=== PATIENT | female | born 1995 | race Asian ===

== ENCOUNTER 2017-03-30 00:07 | Emergency (ER) | payer OTHER ==
[~2017-03-30] VITALS: Ht 170.2 cm; Wt 61.4 kg
[2017-03-30] MEDS ORDERED: AUGM875T28 PO (01:19)
[2017-03-30 01:29] VITALS: BP 157/74
[2017-03-30] MEDS ORDERED: IBUPROFEN 800 MG TAB PO ONE (01:30)
[2017-03-30] MEDS ORDERED: AUGMENTIN 875 MG TAB PO ONE (01:30)
== END 2017-03-30 01:48 | disposition home or self-care (01) ==
LOC: M ED 00:07
DX: S81.851A Open bite, right lower leg, initial encounter (principal); W54.0XXA Bitten by dog, initial encounter; Y92.018 Other place in single-family (private) house as the place of occurrence of the external cause; Y93.89 Activity, other specified; Y99.8 Other external cause status; L40.9 Psoriasis, unspecified

== ENCOUNTER 2019-02-19 23:16 | Emergency (ER) | payer OTHER, BC ==
[~2019-02-19] VITALS: Ht 170.2 cm; Wt 61.3 kg
[~2019-02-19 23:16] MED LIST: AUGM875T28 PO
[2019-02-19] MEDS ORDERED: ISOVUE-370 76% 100ML VIAL (Q9967) As Ordered ONE (23:52)
[2019-02-20] MEDS ORDERED: NS 500 ML IV ONE
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
--- NOTE | 2019-02-20 01:00 | REPVR ---
PROCEDURE INFORMATION: Exam: CT Chest With Contrast Exam date and time: 02/19/2019 11:49 PM Clinical history: 23 years old, female; Chest pain; Type not specified; Additional info: Tr TECHNIQUE: Imaging protocol: Computed tomography of the chest with intravenous contrast. Axial, coronal and sagittal reformatted images were created and reviewed. Radiation optimization: All CT scans at this facility use at least one of these dose optimization techniques: automated exposure control; mA and/or kV adjustment per patient size (includes targeted exams where dose is matched to clinical indication); or iterative reconstruction. Contrast material: ISO; Contrast volume: 100 ml; Contrast route: AC; COMPARISON: No relevant prior studies available. FINDINGS: Lungs: Unremarkable. No consolidation. No mass. Pleural space: Unremarkable. No pneumothorax. No pleural effusion. Heart: Unremarkable. No cardiomegaly. No pericardial effusion. Aorta: Unremarkable. No aneurysm or dissection. Lymph nodes: No pathologically enlarged lymph nodes. Bones/joints: No acute osseous abnormality. Soft tissues: Unremarkable. IMPRESSION: No CT evidence of acute intrathoracic traumatic injury. Electronically signed by: Luis Dale On 02/20/2019 01:00:38 AM
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
[2019-02-20] MEDS ORDERED: MORPHINE 2 MG/ML 1ML SYRINGE (J2270) IV ONE (01:15)
[2019-02-20 01:49] VITALS: BP 123/68
[2019-02-21] MEDS ORDERED: ONDA4TAB6 PO (15:51)
[2019-02-21] MEDS ORDERED: IBUP-1022 PO (15:51)
[2019-02-21] MEDS ORDERED: ROBA750T4 PO (15:51)
== END 2019-02-20 01:51 | disposition home or self-care (01) ==
LOC: M ED 23:16
DX: S00.83XA Contusion of other part of head, initial encounter (principal); V49.40XA Driver injured in collision with unspecified motor vehicles in traffic accident, initial encounter; Z79.2 Long term (current) use of antibiotics
CPT/HCPCS: 70450; 71260; 72125; 74177; 84702; 96361; 96374; 99284; J2270; Q9967

== ENCOUNTER 2019-02-21 15:09 | Emergency (ER) | payer OTHER, BC ==
[~2019-02-21] VITALS: Ht 170.2 cm; Wt 58.2 kg
[2019-02-21 15:09] VITALS: BP 132/81
[2019-02-21] MEDS ORDERED: ROBA750T4 PO (15:51)
[2019-02-21] MEDS ORDERED: IBUP-1022 PO (15:51)
[2019-02-21] MEDS ORDERED: ONDA4TAB6 PO (15:51)
[2019-02-21] MEDS ORDERED: ONDANSETRON 4 MG ORAL DISINTEGRATING TAB (Q0162 PER 1MG) PO ONE (16:00)
== END 2019-02-21 16:08 | disposition home or self-care (01) ==
LOC: M ED 15:09
DX: S29.012A Strain of muscle and tendon of back wall of thorax, initial encounter (principal); X58.XXXA Exposure to other specified factors, initial encounter; Y92.89 Other specified places as the place of occurrence of the external cause; F07.81 Postconcussional syndrome
CPT/HCPCS: 99283; Q0162

== ENCOUNTER 2019-03-01 12:45 | Emergency (ER) | payer OTHER, BC ==
[~2019-03-01] VITALS: Ht 170.2 cm; Wt 57.5 kg
[~2019-03-01 12:45] MED LIST changes: +IBUP-1022 PO; +ONDA4TAB6 PO; +ROBA750T4 PO
[2019-03-01] MEDS ORDERED: NS 1,000 ML IV ONE (15:15)
[2019-03-01] MEDS ORDERED: METOCLOPRAMIDE INJ 10MG/2ML VIAL (J2765) IV ONE (15:15)
[2019-03-01] MEDS ORDERED: KETOROLAC 30 MG/ML VIAL (J1885) IV ONE (16:00)
[2019-03-01] MEDS ORDERED: PROM25TA12 PO (17:24)
[2019-03-01] MEDS ORDERED: KETO10TAB PO (17:24)
[2019-03-01 17:26] VITALS: BP 108/64
== END 2019-03-01 17:32 | disposition home or self-care (01) ==
LOC: M ED 12:45
DX: F07.81 Postconcussional syndrome (principal)
CPT/HCPCS: 96361; 96374; 96375; 99284; J1885; J2765

== ENCOUNTER → 2019-04-23 | Outpatient (CLI) | payer BC ==
[~2019-04-23] MED LIST changes: +KETO10TAB PO; +PROM25TA12 PO
[2019-04-23 11:11] LABS: FREE T4 1.1 NG/DL (0.76-1.46); THYROID STIMULATING HORMONE 2.42 uIU/ML (0.358-3.740)
[2019-04-23 13:18] LABS: CORTISOL AM 16.3 UG/DL (4.3-22.4); PROLACTIN 15.5 NG/ML
== END ==
LOC: M LAB 09:28
PROVIDERS: ATTEND Internal Medicine Endocrinology, Diabetes & Metabolism
DX: D35.2 Benign neoplasm of pituitary gland (principal)

== ENCOUNTER → 2019-04-23 | Outpatient (CLI) | payer OTHER, BC ==
[2019-04-23 10:04] LABS: HEMATOCRIT 40.3 % (36.0-47.0); HEMOGLOBIN 13.5 g/dl (12.0-15.5); MEAN CORPUSCULAR HEMOGLOBIN 29.3 pg (27.0-33.0); MEAN CORPUSCULAR HGB CONC 33.5 g/dl (32.0-36.5); MEAN CORPUSCULAR VOLUME 87.6 fl (80.0-96.0); PLATELET COUNT, AUTOMATED 311 10^3/uL (150-450); WHITE BLOOD COUNT 8.4 10^3/uL (4.0-10.0)
[2019-04-23 11:09] LABS: ALBUMIN 4.1 GM/DL (3.2-5.2); ALT/SGPT 31 U/L (12-78); BILIRUBIN,TOTAL 0.4 MG/DL (0.2-1.0); BLOOD UREA NITROGEN 17 MG/DL (7-18); CALCIUM LEVEL 9.2 MG/DL (8.5-10.1); CARBON DIOXIDE LEVEL 25 MEQ/L (21-32); CHLORIDE LEVEL 105 MEQ/L (98-107); GLOMERULAR FILTRATION RATE > 60.0 (>60); GLUCOSE, FASTING 91 MG/DL (70-100); POTASSIUM SERUM 4.1 MEQ/L (3.5-5.1); SODIUM LEVEL 138 MEQ/L (136-145); TOTAL PROTEIN 7.2 GM/DL (6.4-8.2)
== END ==
LOC: M LAB 09:24
PROVIDERS: ATTEND Family Medicine
DX: R51 Headache (principal)

== ENCOUNTER → 2020-01-26 | Outpatient (CLI) | payer BC ==
[~2020-01-26] MED LIST changes: +PROHANCE 279.3MG/ML 5ML VIAL As Ordered ONE
--- NOTE | 2020-01-26 17:31 | REPVR ---
PROCEDURE INFORMATION: Exam: MR Head Without and With Contrast, Sella Exam date and time: 01/26/2020 4:56 PM Age: 24 years old Clinical indication: Abnormal findings; Abnormal lab test; Prolactin labwork; Patient HX: Increased prolactin; Additional info: Benign neoplasm of pituitary gland TECHNIQUE: Imaging protocol: MR of the head without and with intravenous contrast. Exam focused on the sella. Contrast material: PROHANCE; Contrast volume: 5 ml; Contrast route: INTRAVENOUS (IV); COMPARISON: MRI-Brain without Contrast 02/11/2015 1:39 PM FINDINGS: Brain: No acute infarct identified on the diffusion-weighted imaging. No evidence of brain parenchymal edema or intracranial mass effect. No significant white matter disease. No pathologic brain parenchymal enhancement. Ventricles: Stable. No ventriculomegaly. Size asymmetry of the lateral ventricles is probably physiologic. Sella: The pituitary gland is enlarged demonstrating a convex superior contour. There is an area of relative hypoenhancement in the anterior aspect of the gland measuring 6 x 4 x 5 mm, image 7 series 801, image 7 series 901. This does appear T2 hyperintense, T1 hypointense on the precontrast sequences. The pituitary stalk is slightly deviated to the left. No parasellar masses. The superior aspect of the pituitary gland demonstrates mild mass effect upon the optic chiasm. Bones/joints: Unremarkable. 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 Electronically signed by: Landy Keyes On 01/26/2020 17:31:48 PM
== END ==
LOC: M RAD 15:15
PROVIDERS: ATTEND Internal Medicine Endocrinology, Diabetes & Metabolism
DX: D35.2 Benign neoplasm of pituitary gland (principal)

== ENCOUNTER → 2020-03-29 | Outpatient (CLI) | payer BC ==
[~2020-03-29] MED LIST changes: -PROHANCE 279.3MG/ML 5ML VIAL As Ordered ONE
[2020-03-29 10:19] LABS: FOLATE 9.4 NG/ML
== END ==
LOC: M LAB 09:06
PROVIDERS: ATTEND Registered Nurse
DX: F07.81 Postconcussional syndrome (principal)

== ENCOUNTER → 2020-04-15 | Outpatient (CLI) | payer BC ==
--- NOTE | 2020-04-19 14:30 | SLEEPHOME ---
DATE: 04/15/2020 ORDERED BY: RUSTY Marrero Nocturnal polysomnography was performed for evaluation of sleep physiology in this patient with complaints of excessive somnolence and insomnia, snoring and nonrestorative sleep. Seven hours and 42 minutes of data were reviewed. There were 247.5 minutes of sleep identified. Sleep latency was very prolonged at 179.5 minutes. REM sleep was not achieved. Sleep architecture showed poor progression. Some fragmentation from spontaneous arousals was noted. Overall sleep efficiency was 54.1%. The electrocardiogram showed a sinus rhythm with an average heart rate of 52 beats per minute. Rate range 48-90. EEG showed fairly normal waveforms for wake and sleep stages. There was only one obstructive respiratory event identified of 10 seconds in duration or greater. Minimal snoring was appreciated. Arousals from respiratory events occurred 0.5 times per hour with occasional movement in the limb EMG. Limb movement arousal index was 0.7. Spontaneous arousals were seen 15 times per hour. IMPRESSION: Abnormal nocturnal polysomnography with frequent spontaneous arousals of unclear etiology. RECOMMENDATION: Possible considerations for the cause of the patients sleep disruption would be physical discomfort or medication effects. MTDD
== END ==
LOC: M SLEEP 20:00
PROVIDERS: ATTEND Physician Assistant
DX: R40.0 Somnolence (principal); R06.83 Snoring

== ENCOUNTER → 2020-05-09 | Outpatient (CLI) | payer BC ==
--- NOTE | 2020-05-10 15:25 | SLEEPHOME ---
NOCTURNAL POLYSOMNOGRAPHY HOME DATE: 05/09/2020 ORDERED BY: RUSTY Venegas Diagnostic home sleep testing was performed due to concern for the obstructive sleep apnea syndrome in this patient with persistent excessive somnolence and nonrestorative sleep and a history of snoring. For testing, a nocturnal T3 respiratory monitoring device was used. Continuous record was made of pulse, oxygen saturation, air flow, chest and abdominal strain, and body position. Nine hours and 59 minutes of data were reviewed. There were 4 hours and 46 minutes marked as time in bed. During the interval marked time in bed, there was significant paradoxical breathing identified in the strain channels. Unfortunately the patient failed to wear the flow sensor correctly. All told there were 51 events of paradoxical breathing. The patient's baseline pulse rate was 77. Pulse rate ranged 55 to 108. Baseline saturation was 95%. Saturations fell only to 91%. Testing was performed in both the supine and nonsupine positions. IMPRESSIONS: Equivocal diagnostic home sleep test with evidence of paradoxic breathing. A respiratory event index of 10.7 was recorded. However, as the patient failed to apply the flow sensor properly, I am unable to determine the character of these events. RECOMMENDATION: Further sleep evaluation will likely be necessary as these results are equivocal. Dr. Pitts
== END ==
LOC: M SLEEP HO 11:38
PROVIDERS: ATTEND Physician Assistant
DX: R40.0 Somnolence (principal)

== ENCOUNTER → 2020-06-10 | Outpatient (CLI) | payer BC ==
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
== END ==
LOC: M SLEEP 20:00
PROVIDERS: ATTEND Physician Assistant
DX: R40.0 Somnolence (principal); R06.83 Snoring; G47.21 Circadian rhythm sleep disorder, delayed sleep phase type

== ENCOUNTER → 2020-09-20 | Outpatient (CLI) | payer BC ==
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
== END ==
LOC: M RAD 12:02
PROVIDERS: ATTEND Registered Nurse
DX: M25.511 Pain in right shoulder (principal)

== ENCOUNTER → 2020-11-05 | Outpatient (CLI) | payer BC ==
--- NOTE | 2020-11-07 09:44 | REP ---
INDICATION: IMPINGEMENT SYNDROME OF RIGHT SHOULDER. COMPARISON: Radiographs 09/20/2020. TECHNIQUE: Coronal oblique T1, T2 fat sat, sagittal oblique T2 fat sat, axial T2 fat sat, gradient echo. FINDINGS: Rotator cuff: There is mild supraspinatus and infraspinatus tendinopathy/tendinitis. There is no rotator cuff tendon tear. Acromioclavicular joint: Unremarkable. Acromion: Type 1 Biceps Tendon: In bicipital groove, no tenosynovitis. Hill Sach's deformity: None. Deltoid muscle: No abnormal signal. Biceps labral complex: Intact. Labrum: No tear. Cartilage: No defects. Bone marrow: No abnormal signal. Joint fluid: No effusion. IMPRESSION: Mild supraspinatus and infraspinatus tendinopathy/tendinitis. No evidence of rotator cuff tear or labral tear. <Electronically signed by Rusty Holland > 11/07/20 [id number]
== END ==
LOC: M RAD 09:43
PROVIDERS: ATTEND Orthopaedic Surgery Sports Medicine
DX: M75.41 Impingement syndrome of right shoulder (principal)

== ENCOUNTER → 2021-01-02 | Outpatient (CLI) | payer OTHER, BC ==
[~2021-01-02] MED LIST changes: +CITA10TA7 PO; +FREM225A SQ; +GABA-1171 PO; +HYDR-3363 PO; +NOXI1TAB PO; +PRAZ1CAP PO
== END ==
LOC: M SOG 11:03
PROVIDERS: ATTEND Orthopaedic Surgery Sports Medicine
DX: M54.12 Radiculopathy, cervical region (principal); G56.21 Lesion of ulnar nerve, right upper limb

== ENCOUNTER → 2021-02-19 | Outpatient (CLI) | payer OTHER, BC | LOC: M RAD 10:36 | PROVIDERS: ATTEND Orthopaedic Surgery Sports Medicine | DX: G56.21 Lesion of ulnar nerve, right upper limb (principal) ==

== ENCOUNTER → 2021-03-17 | Outpatient (CLI) | payer OTHER, BC ==
[~2021-03-17] MED LIST changes: +CITA10TA5 PO; -CITA10TA7 PO
== END ==
LOC: M LABSMTC 09:11
PROVIDERS: ATTEND Anesthesiology
DX: Z01.812 Encounter for preprocedural laboratory examination (principal); Z20.822 Contact with and (suspected) exposure to COVID-19

== ENCOUNTER 2021-03-22 08:54 | Day surgery (SDC) | payer OTHER, BC ==
[~2021-03-22] VITALS: Ht 170.2 cm; Wt 63.0 kg
[~2021-03-22 08:54] MED LIST changes: +LR 1,000 ML IV ONE; +MIDAZOLAM INJ 2MG/2ML VIAL (J2250 PER 1MG) IV PRN; +ceFAZolin SOD 2 GM in IV 1 EA IV ONE; +fentaNYL 100 MCG/2 ML INJECTION (J3010) IV PRN
--- OUTSIDE RECORDS SUMMARY | 2021-03-22 08:58 | CCD ---
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 Pitts MD on 05/16/[address] [place] [address], [address] Collected: 05/16/2020 Reported: 06/08/2020 11:03 tel :[phone] ANTI-CHROMATIN ANTIBODIES <0.2 AI (0.0-0.9) N (Normal) Reviewed by Catherine Pitts MD on 2020; All test results are final unless otherwise noted. Reported Physicians [facility] Ordered by Catherine Pitts MD on 05/16/[address] [place] [address], [address] Collected: 05/16/2020 Reported: 06/08/2020 11:03 tel :[phone] Reported Physicians See Note None Note: Reported Physicians:Ordering: Catherine Lopez AAttending: Catherine PittsCopngoc To: Catherine Pitts Reviewed by Catherine Pitts MD on 2020; All test results are final unless otherwise noted. ANTI DS-DNA AB BY [facility] Ordered by Catherine Pitts MD on 05/16/[address] [place] [address], [address]39[address] Collected: 05/16/2020 Reported: 06/08/2020 11:03 tel :[phone] ANTI DS-DNA AB Negative (Negative) N (Normal) Note: Performed at: - [facility] [address], [place] [id number] Electric Melt Operator: Gabbi Valadez MD, Phone: [phone] Performed at: - [facility] [address] [id number] Electric Melt Operator: Asim Bravo MD, Phone: [phone] Reviewed by Catherine Pitts MD on 2020; All test results are final unless otherwise noted. Reported Physicians [facility] Ordered by Catherine Pitts MD on 05/16/[address] [place] [address], 97[address] Collected: 05/16/2020 Reported: 06/08/2020 11:03 tel :[phone] Reported Physicians See Note None Note: Reported Physicians:Ordering: Catherine Lopez AAttending: Catherine PittsCopngoc To: Catherine Pitts Reviewed by Catherine Pitts MD on 2020; All test results are final unless otherwise noted. LYME DISEASE SCRN WITH CONFIRM [facility] Ordered by Catherine Pitts MD on 05/16/[address] [place] [address], [address] Collected: 05/16/2020 Reported: 06/08/2020 11:03 tel :[phone] Lyme Disease IgG/IgM Antibodie <0.91 ISR (0.00-0.90) N (Normal) Note: Ne gative <0.91 Equivocal 0.91 - 1.09 Positive >1.09 Lyme Disease IgM Ab Quantitati <0.80 index (0.00-0.79) N (Normal) Note: Ne gative <0.80 Equivocal 0.80 - 1.19 Positive >1.19 . IgM levels may peak at 3-6 weeks post infection, then gradually decline. Reviewed by Catherine Pitts MD on 2020; All test results are final unless otherwise noted. Reported Physicians [facility] Ordered by Catherine Pitts MD on 05/16/[address] [place] [address], [address] Collected: 05/16/2020 Reported: 06/08/2020 11:03 tel :[phone] Reported Physicians See Note None Note: Reported Physicians:Ordering: Catherine Lopezding: Louis Pitts To: Catherine Pitts Reviewed by Catherine Pitts MD on 2020; All test results are final unless otherwise noted. ANTINUCLEAR ANTIBODIES [facility] Ordered by Catherine Pitts MD on 05/16/[address] [place] [address], [address] Collected: 05/16/2020 Reported: 06/08/2020 11:03 tel :[phone] ANTINUCLEAR ANTIBODIES DIRECT Negative (Negative) N (Normal) OIL WELL LOGGING ENGINEER ANTIBODIES 0.2 AI (0.0-0.9) N (Normal) AMARO ANTIBODIES <0.2 AI (0.0-0.9) N (Normal) SJOGREN'S ANTI SS-A <0.2 AI (0.0-0.9) N (Normal) SJOGREN'S ANTI SS-B <0.2 AI (0.0-0.9) N (Normal) Reviewed by Catherine Pitts MD on 2020; All test results are final unless otherwise noted. Reported Physicians [facility] Ordered by Catherine Pitts MD on 05/16/[address] [place] [address], 20153 Collected: 05/16/2020 Reported: 06/08/2020 11:03 tel :[phone] Reported Physicians See Note None Note: Reported Physicians:Ordering: Catherine Lopez AAtpatriciading: Louis Pitts To: Catherine Pitts Reviewed by Catherine Pitts MD on 2020; All test results are final unless otherwise noted. LUPUS TYPE ANTICOAGULANT [facility] Ordered by Catherine Pitts MD on 05/16/[address] [place] [address], 01782 Collected: 05/16/2020 Reported: 05/18/2020 11:04 tel :[phone] PTT LUPUS TYPE ANTICOAG SCREEN 0.9 (0-1.2) N (Normal) Note: RESULT IS LESS THAN 1.2, NO FURTHE R TESTING INDICATED. INTERPRETATION This test is to screen those individuals that may have a circulating lupus anticoagulant. If the LA Screen test is normal, and/or the LA Confirm test is normal, the presence of a Lupus Anticoagulant (LA) is unlikely, but does not completely exclude LA-like activity. If both tests or the LA Confirm test are elevated, the specimen will be reflexed to a hexagonal phase phospholipid test through our reference laboratory for confirmation. A positive hexagonal phase phospholipid is indicative of LA. A negative hexagonal phase phospholipid test may indicate a coagulation factor deficiency or a specific inhibitor. Reviewed by Catherine Pitts MD on 2019; All test results are final unless otherwise noted. Reported Physicians [facility] Ordered by Catherine Pitts MD on 05/16/[address] [place] [address], 877[address] Collected: 05/16/2020 Reported: 05/18/2020 11:04 tel :[phone] Reported Physicians See Note None Note: Reported Physicians:Ordering: Catherine Lopze AAttending: Louis Pitts To: Catherine Pitts Reviewed by Catherine Pitts MD on 2019; All test results are final unless otherwise noted. RHEUMATOID FACTOR QUANT [facility] Ordered by Catherine Pitts MD on 05/16/[address] [place] [address], 20263 Collected: 05/16/2020 Reported: 05/16/2020 12:13 tel :[phone] RHEUMATOID FACTOR QUANT < 10.0 IU/ML (<15.0) N (Normal) Reviewed by Catherine Pitts MD on 2019; All test results are final unless otherwise noted. Reported Physicians [facility] Ordered by Catherine Pitts MD on 05/16/[address] [place] [address], 99717 Collected: 05/16/2020 Reported: 05/16/2020 12:13 tel :[phone] Reported Physicians See Note None Note: Reported Physicians:Ordering: Catherine Lopez AAttending: Louis Pitts To: Catherine Pitts Reviewed by Catherine Pitts MD on 2019; All test results are final unless otherwise noted. FT4&TSH PANEL [facility] Ordered by Catherine Pitts MD on 05/16/[address] [place] [address], 06310 Collected: 05/16/2020 Reported: 05/16/2020 12:13 tel :[phone] THYROID STIMULATING HORMONE 1.970 uIU/ML (0.358-3.740) N (Normal) FREE T4 1.12 NG/DL (0.76-1.46) N (Normal) Reviewed by Catherine Pitts MD on 2019; All test results are final unless otherwise noted. Reported Physicians [facility] Ordered by Catherine Pitts MD on 05/16/[address] [place] [address], 35532 Collected: 05/16/2020 Reported: 05/16/2020 12:13 tel :[phone] Reported Physicians See Note None Note: Reported Physicians:Ordering: Catherine Lopez AAttending: Catherine PittsCopngoc To: Catherine Pitts Reviewed by Catherine Pitts MD on 2019; All test results are final unless otherwise noted. COMPLETE BLOOD COUNT [facility] Ordered by Catherine Pitts MD on 05/16/[address] [place] [address], 698[address] Collected: 05/16/2020 Reported: 05/16/2020 11:08 tel :[phone] WHITE BLOOD COUNT 9.0 3/uL (4.0-10.0) N (Normal) RED BLOOD COUNT 4.71 6/uL (4.00-5.40) N (Normal) HEMOGLOBIN 13.5 g/dl (12.0-15.5) N (Normal) HEMATOCRIT 41.7 % (36.0-47.0) N (Normal) MEAN CORPUSCULAR VOLUME 88.5 fl (80.0-96.0) N (Normal) MEAN CORPUSCULAR HEMOGLOBIN 28.7 pg (27.0-33.0) N (Normal) MEAN CORPUSCULAR HGB CONC 32.4 g/dl (32.0-36.5) N (Normal) RED CELL DISTRIBUTION WIDTH 12.5 % (11.5-14.5) N (Normal) PLATELET COUNT, AUTOMATED 278 3/uL (150-450) N (Normal) NUCLEATED RED BLOOD CELL % 0.0 % (0-0) N (Normal) Reviewed by Catherine Pitts MD on 2019; All test results are final unless otherwise noted. Reported Physicians [facility] Ordered by Catherine Pitts MD on 05/16/[address] [place] [address], 49953 Collected: 05/16/2020 Reported: 05/16/2020 11:08 tel :[phone] Reported Physicians See Note None Note: Reported Physicians:Ordering: Catherine Lopez AAttending: Louis Pitts To: Catherine Pitts Reviewed by Catherine Pitts MD on 2019; All test results are final unless otherwise noted. URIC ACID [facility] Ordered by Catherine Pitts MD on 05/16/[address] [place] [address], 58471 Collected: 05/16/2020 Reported: 05/16/2020 12:13 tel :[phone] URIC ACID 2.5 MG/DL (2.6-6.0) L (Low) Reviewed by Catherine Pitts MD on 2019; All test results are final unless otherwise noted. Reported Physicians [facility] Ordered by Catherine Pitts MD on 05/16/[address] [place] [address], 15754 Collected: 05/16/2020 Reported: 05/16/2020 12:13 tel :[phone] Reported Physicians See Note None Note: Reported Physicians:Ordering: Catherine Lopez AAttending: Louis Pitts To: Catherine Pitts Reviewed by Catherine Pitts MD on 2019; All test results are final unless otherwise noted. COMPREHENSIVE [facility]AB[facility]IL [facility] Ordered by Catherine Pitts MD on 05/16/[address] [place] [address], 54079 Collected: 05/16/2020 Reported: 05/16/2020 12:13 tel :[phone] GLUCOSE, FASTING 91 MG/DL (70-100) N (Normal) BLOOD UREA NITROGEN 13 MG/DL (7-18) N (Normal) CREATININE FOR GFR 0.74 MG/DL (0.55-1.30) N (Normal) GLOMERULAR FILTRATION RATE > 60.0 (>60) N (Normal) Note: Units are mL/min/1.73 m2 Chroni c Kidney Disease Staging per NKF: Stage I & II GFR >=60 Normal to Mildly Decreased Stage III GFR 30- 59 Moderately Decreased Stage IV GFR 15-29 Severely Decreased Stage V GFR <15 Very Little GFR Left ESRD GFR <15 on FUNERAL LIMOUSINE DRIVER SODIUM LEVEL 141 MEQ/L (136-145) N (Normal) POTASSIUM SERUM 4.2 MEQ/L (3.5-5.1) N (Normal) CHLORIDE LEVEL 108 MEQ/L (98-107) H (High) CARBON DIOXIDE LEVEL 29 MEQ/L (21-32) N (Normal) ANION GAP 4 MEQ/L (8-16) L (Low) CALCIUM LEVEL 8.7 MG/DL (8.5-10.1) N (Normal) AST/SGOT 11 U/L (7-37) N (Normal) ALT/SGPT 20 U/L (12-78) N (Normal) ALKALINE PHOSPHATASE 45 U/L (45-117) N (Normal) BILIRUBIN,TOTAL 0.3 MG/DL (0.2-1.0) N (Normal) TOTAL PROTEIN 6.5 GM/DL (6.4-8.2) N (Normal) ALBUMIN 3.9 GM/DL (3.2-5.2) N (Normal) ALBUMIN/GLOBULIN RATIO 1.5 (1.2-2.2) N (Normal) Reviewed by Catherine Pitts MD on 2019; All test results are final unless otherwise noted. Reported Physicians [facility] Ordered by Catherine Pitts MD on 05/16/2020 [address] [place], [address] Collected: 05/16/2020 Reported: 05/16/2020 12:13 tel :[phone] Reported Physicians See Note None Note: Reported Physicians:Ordering: Catherine Lopez AAttending: Louis Pitts To: Catherine Pitts Reviewed by Catherine Pitts MD on 2019; All test results are final unless otherwise noted. FREE T3 [facility] Ordered by Catherine Pitts MD on 05/16/[address] [place] [address], 15473 Collected: 05/16/2020 Reported: 05/16/2020 12:13 tel :[phone] FREE T3 3.1 PG/ML (2.2-4.0) N (Normal) Reviewed by Catherine Pitts MD on 2019; All test results are final unless otherwise noted. Reported Physicians [facility] Ordered by Catherine Pitts MD on 05/16/[address] [place] [address], 99991 Collected: 05/16/2020 Reported: 05/16/2020 12:13 tel :[phone] Reported Physicians See Note None Note: Reported Physicians:Ordering: Catherine Lopez AAttending: Louis Pitts To: Catherine Pitts Reviewed by Catherine Pitts MD on 2019; All test results are final unless otherwise noted. TOTAL 25(OH) VITAMIN D [facility] Ordered by Catherine Pitts MD on 05/16/[address] [place] [address], 27595 Collected: 05/16/2020 Reported: 05/16/2020 12:13 tel :[phone] TOTAL 25(OH) VITAMIN D 16.1 NG/ML (30.0-100.0) L (Low) Reviewed on 05/25/2020; All test result s are final unless otherwise noted. Reported Physicians [facility] Ordered by Catherine Pitts MD on 05/16/[address] [place] [address], 75329 Collected: 05/16/2020 Reported: 05/16/2020 12:13 tel :[phone] Reported Physicians See Note None Note: Reported Physicians:Ordering: Catherine Lopez AAttending: Louis Pitts To: Catherine Pitts Reviewed on 05/25/2020; All test result s are final unless otherwise noted. IGP,Aptima HPV,CtNg Age Gdln [facility] Ordered by Catherine Pitts MD on 05/02/2020 Collected: 05/02/2020 Reported: 05/05/2020 12:06 tel :[phone] Age Gdln ACOG Testing 21-24 None Reviewed by Catherine Pitts MD on 2019; All test results are final unless otherwise noted. IGP, CtNg, rfx Aptima HPV ASCU [facility] Ordered by Catherine Pitts MD on 05/02/2020 Collected: 05/02/2020 Reported: 05/05/2020 12:06 tel :[phone] . . None Chlamydia, Nuc. Acid Amp Negative (Negative) None Gonococcus, Nuc. Acid Amp Negative (Negative) None Note: PAPSMR None Note: The Pap smear is a screening test designed to aid in the detection ofpremalignant and malignant conditions of the uterine cervix. It is not adiagnostic procedure and should not be used as the sole means of detectingcervical cancer. Both false-positive and false-negative reports do occur. . NEGHPV None Note: The HPV DNA reflex criteria were n ot met with this specimen resulttherefore, no HPV testing was performed. DIAGNOSIS: See Note None Note: NEGATIVE FOR INTRAEPITHELIAL LESIO N OR MALIGNANCY. Specimen adequacy: See Note None Note: Satisfactory for evaluation. Endo cervical and/or squamous metaplasticcells (endocervical component) are present. Performed by: See Note None Note: Fadia Easley Hydraulic Governor Assembler ([facility]) Clinician provided ICD10: See Note None Note: Z12.4 Test Methodology: IGLPAP None Note: This liquid based ThinPrep(R) pap test was screened with theuse of an image guided system. Reviewed by Catherine Pitts MD on 2019; All test results are final unless otherwise noted. VITAMIN B6,PYRIDOXAL PHOSPHATE [facility] Ordered by Krystal Salazar NP on 03/29/2020 [address] [place], [address] Collected: 03/29/2020 Reported: 04/01/2020 17:15 tel :[phone] VITAMIN B6,PYRIDOXAL PHOSPHATE 17.5 ug/L (2.0-32.8) N (Normal) Note: Performed at: - [facility] [address] [place], [place] [id number] Electric Melt Operator: Asim Bravo MD, Phone: [phone] NOTES See Note None Note: Specimen Comment: Test(s) 340182-F itamin B6 Specimen Comment: was developed and its performance characteristics Specimen Comment: determined by [facility]. It has not been cleared or approved Specimen Comment: by the Food and Drug Administration. Reviewed by Krystal Salazar NP on 04/09/2020; All test results are final unless otherwise noted. Reported [facility] Ordered by Krystal Salazar NP on 03/29/[address] [place] [address], [facility] Collected: 03/29/2020 Reported: 04/01/2020 17:15 tel :[phone] Reported Physicians See Note None Note: Reported Physicians:Ordering: Jayy lam [id number], Krystal MAttending: Krystal SalazarCopngoc To: Krystal SalazarCopy To: Catherine Pitts Reviewed by Krystal Salazar NP on 04/09/2020; All test results are final unless otherwise noted. VITB12 & [facility] Ordered by Krystal Salazar NP on 03/29/[address] [place] [address], [address] Collected: 03/29/2020 Reported: 03/29/2020 10:19 tel :[phone] VITAMIN B12 LEVEL 808 PG/ML N (Normal) Note: VITAMIN B12 NORMAL RANGE NORMAL 247 - 911 PG/ML INDETERMINATE 211 - 246 PG/ML DEFICIENT LESS THAN 211 PG/ML FOLATE 9.4 NG/ML N (Normal) Note: FOLATE NORMAL RANGE NORMAL GREATER THAN 5.4 NG/ML INDETERMINATE 3.4-5.4 NG/ML DEFICIENT LESS THAN 3.4 NG/ML Reviewed by Krystal Salazar NP on 04/01/2020; All test results are final unless otherwise noted. Reported Physicians [facility] Ordered by Krystal Salazar NP on 03/29/[address] [place] [address], [address] Collected: 03/29/2020 Reported: 03/29/2020 10:19 tel : Reported Physicians See Note None Note: Reported Physicians:Ordering: Jayy lam [id number], Krystal Farooqding: Alfredo Salazar To: Alfredo Salazar To: Catherine Pitts Reviewed by Krystal Salazar PATIENT RELATIONS DIRECTOR on 04/01/2020; All test results are final unless otherwise noted. History of Present Illness History of Present Illness not supported for this document typeNo History of Present Illness Recorded Social History Description Last Updated Social history unchanged 03/02/2021 No caffeine use 05/20/2020 Not a current smoker 05/20/2020 Not using alcohol 05/20/2020 Not using drugs 05/20/2020 Poor exercise habits 05/20/2020 LIVES W/ PARENTS, SINGLE ~WORKS AT [employer] 40 HRS/WEEK. WORKED THERE SINCE MAR 2018 ~2-3 SEMESTERS AT [email or web address] 05/02/2020 No chocolate consumption 05/02/2020 No coffee consumption 05/02/2020 No tea consumption 05/02/2020 Activities of daily living 02/01/2020 Current every day smoker was five USED TO SMOKE CLOSE TO A PPD, NOW DOWN TO 5CPD 02/01/2020 No physical disability 02/01/2020 Self-reliant in usual daily activities 02/01/2020 Smoking Status Unknown Procedures and Surgical History Includes: Procedures from 03/02/2020 through 03/02/2021 Procedures Code Diagnosis Performing Provider Service Location Service Date MEDICAL RECORDS PREPARATION ($0.75 / PAGE+ postage) RECOR MEDICAL RECORD FEE Catherine Pitts MD Family Medicine [facility] 12/06/2020 Medical History Includes: Medical History in patient's chart Description Last Updated WISDOM TEETH EXTRACTED 05/02/2020 Assessment of trauma to the neck on both sides 2018 0607/02/2019 Family History Includes: Family History in patient's chart Description Last Updated FA 50 YO (A) LIPID ABN,PTSD, ON ZOLOFT ~MA 52 YO (A) ON VITAMINS ~2 SISTERS 26YO WELL 22 YO WELL 05/02/2020 Family history unchanged 02/02/2020 Review of Systems Review of Systems not supported for this document typeNo Review of Systems Recorded Mental Status Mental Status not supported for this document typeNo Mental Status Recorded Functional Status Functional Status not supported for this document typeNo Functional Status Recorded Physical Exam Physical Exam not supported for this document typeNo Physical Exam Recorded Immunizations Includes: Immunizations in patient's chart Vaccine Dose # Date Site Reaction(s) Status Source Influenza,NOS 1 05/05/2019 Complete (Reported) Pat ient Td 1 04/27/2019 Complete (Refused - Patient objection) [facility] Allergies Includes: Active, inactive, and resolved AllergiesNo Known Allergies Encounters Includes: Encounters from 03/02/2020 through 03/02/2021 Encounter Provider Location Date Check-In Time Check-Out Time D iagnosis STANDARD OV Krystal Salazar [facility], [facility] 03/02/2021 11:28AM 11:47AM Muscle Spasm of Back NO FAULT Krystal Salazar [facility], [facility] 02/22/2021 10:46AM 11:19AM Muscle Spasm of Back, Common Migraine W/o Aura W/o Intractable Migraine W/o Status Migrainosus, Postconcussion Syndrome NO FAULT Krystal Salazar [facility] 01/24/2021 11:00AM 11:27AM Postconcussion Syndrome NO FAULT Krystal Salazar [facility] 12/28/2020 10:52AM 11:31AM Generalized Anxiety Disorder , Postconcussion Syndrome NO FAULT Krystal Salazar [facility] 11/29/2020 11:12AM 11:47AM Postconcussion Syndrome, Alexsander aracelis Headache NO FAULT Krystal Salazar [facility], [facility] 11/02/2020 10:57AM 11:19AM Postconcussion Syndrome NO FAULT Krystal Salazar [facility], [facility] 10/04/2020 1:00PM 1:44PM Arthralgia - Shoulder Region Right, Postconcussion Syndrome, Generalized Anxiety Disorder NO FAULT Krystal Salazar [facility] 09/05/2020 10:58AM 11:48AM Postconcussion Syndrome, Wayne tigo, Arthralgia - Shoulder Region Right, Muscle Spasm of Back, Bursitis Right Shoulder NO FAULT [facility] 08/12/2020 9:59AM 11:10AM Postconcussion Syndrome NO FAULT Krystal Salazar PATIENT RELATIONS DIRECTOR [facility] 07/15/2020 10:02AM 10:23AM Postconcussion Syndrome NO FAULT Krystal Salazar PATIENT RELATIONS DIRECTOR [facility] 06/14/2020 11:03AM 11:43AM Postconcussion Syndrome CLINICAL USE ONLY Catherine Pitts MD Family Medicine [facility], 05/25/2020 05/20/2020 11:53AM 05/20/2020 11:59PM NO FAULT Krystal Salazar PATIENT RELATIONS DIRECTOR [facility] 05/20/2020 9:50AM 10:20AM Postconcussion Syndrome ANNUAL PHYSICAL EXAM Catherine Pitts MD Family Medicine [facility], 05/02/2020 10:16AM 11:09AM Arthralgia, Depressi on with Anxiety, Routine History & Physical Adult with Abnormal Findings, Tremor, Psoriasis NO FAULT Krystal Salazar PATIENT RELATIONS DIRECTOR [facility] 04/20/2020 10:07AM 10:48AM Postconcussion Syndrome NO FAULT Krystal Salazar PATIENT RELATIONS DIRECTOR [facility] 03/30/2020 8:01AM 8:27AM Postconcussion Syndrome NO FAULT Krystal Salazar PATIENT RELATIONS DIRECTOR [facility] 03/02/2020 9:01AM 9:54AM Postconcussion Syndrome Insurance Includes: Active Insurance Policies Plan Name Member ID Group # Subscriber Relationship Effective Da jim - [facility] [id number] Natasha last Advance Directives Includes: Current Advance DirectivesNo Advance Directives Recorded Health Concerns Includes: Active Health ConcernsNo Active Health Concerns Recorded Goals Includes: Active GoalsNo Active Goals Recorded Interventions Includes: Interventions for active GoalsNo Interventions Recorded Evaluations & Outcomes Includes: Evaluations & Outcomes for active GoalsNo Outcomes Recorded
--- OUTSIDE RECORDS SUMMARY | 2021-03-22 08:58 | CCD | Continuity of Care Document ---
Author Author Natasha FLORES MD Organization Unknown Address [id number] [place] [address] , [address] [address] Phone [phone] Care Team Providers Care Informatica Name Role Phone Catherine Pitts M.D. AUTM [phone] AUTM Unavailable AUTM Unavailable Problems Active Problems Provider Date Transient insomnia [employer] Brambila D.O. Onset: 07/27/2020 Social History Type Date Description Comments Sex Unknown ETOH Use Denies alcohol use Tobacco Use Start: Unknown End: Unknown Patient is a former smoker Recreational Drug Use Denies Drug Use Smoking Status Reviewed: 02/13/21 Patient is a former smoker Allergies, Adverse Reactions, Alerts Description No Known Drug Allergies Medications Active Medications SIG Qnty Indications Ordering Provide r Date Gabapentin 100mg Capsules 2 caps by mouth every day 90caps Unknown Hydroxyzine HCL 25mg Tablets 1 tab three times a day as needed Unknown Prazosin HCL 1mg Capsules 1 cap at bedtime Unknown Immunizations CPT Code Status Date Vaccine Lot # [id number] Given 03/11/2020 Flublock, Quadrivalent Vital Signs Date Vital Result Comment 02/13/2021 10:54am Body Temperature 97.9 F 01/02/2021 10:16am Body Temperature 97.0 F Results Test Acquired Date Facility Test Result H/L Range Note Order 01/02/2021 [facility] [address] [place] [address] [phone] Elbow extension night time splint <pending> Procedures Date Code Description Status 02/24/2021 77049 Office/Outpatient Established Mo d MDM 30-39 Min Completed 02/13/2021 27942 Office/Outpatient Established Mo d MDM 30-39 Min Completed 01/02/2021 74650 Office/Outpatient Established Mo d MDM 30-39 Min Completed 01/02/202125979 Inject/Drain Arthrocentesis Veronika r Joint/Bursa/Ganglion Cyst Completed 11/21/2020 05454 Office/Outpatient Established Lo w MDM 20-29 Min Completed 10/10/2020 25752 Office/Outpatient New Moderate M DM 45-59 Minutes Completed Medical Devices Description No Information Available Encounters Type Date Location Provider Dx Diagnosis Office Visit 02/24/2021 2:30p [facility] Hesham Flores MD M75.41 Impingement syndrome of right shoulder G56.21 Lesion of ulnar nerve, right upper limb Office Visit 02/13/2021 10:45a [facility] Hesham Flores MD M75.41 Impingement syndrome of right shoulder G56.21 Lesion of ulnar nerve, right upper limb Office Visit 01/02/2021 10:15a [facility] Flores MD M75.41 Impingement syndrome of right shoulder G56.21 Lesion of ulnar nerve, right upper limb Office Visit 11/21/2020 11:30a [facility] Flores MD M75.41 Impingement syndrome of right shoulder Office Visit 10/10/2020 11:00a [facility] Hesham Flores MD M75.41 Impingement syndrome of right shoulder M25.511 Pain in right shoulder Assessments Date Code Description Provider 02/24/2021 M75.41 Impingement syndrome of right sh mónica Flores MD 02/24/2021 G56.21 Lesion of ulnar nerve, right upp er limb Hesham Flores MD 02/13/2021 M75.41 Impingement syndrome of right sh mónica Flores MD 02/13/2021 G56.21 Lesion of ulnar nerve, right upp er limb Hesham Flores MD 01/02/2021 M75.41 Impingement syndrome of right sh mónica Flores MD 01/02/2021 G56.21 Lesion of ulnar nerve, right upp er limb Hesham Flores MD 11/21/2020 M75.41 Impingement syndrome of right sh mónica Flores MD 10/10/2020 M75.41 Impingement syndrome of right sh oulder Hesham Flores MD 10/10/2020 M25.511 Pain in right shoulder Hesham murry MD Plan of Treatment No Information Available Functional Status Functional Condition Comment Date Status Independent with all ADL's Activ e Independent with all IADL's Acti ve Mental Status Mental Condition Comment Date Status None Active Referrals Description No Information Available
--- OUTSIDE RECORDS SUMMARY | 2021-03-22 08:58 | CCD | Continuity of Care Document ---
Author Author Natasha RAMOS I Organization [place] [address] Phone [phone] Care Team Providers Care Sales Supervisor Name Role Phone Catherine Pitts Unavailable Problems Active Problems Provider Date Other specified problems related to primary support group Justen Hernandez PATIENT NAVIGATOR Onset: 12/11/2019 Other reactions to severe stress Franky Hernandez LCSW Onset: 12/11/2019 Social History Type Date Description Comments Sex Unknown Allergies and adverse reactions Active Allergies Criticality Reaction | Severity Comments Date NKDA Unable to assess criticality 12/29/2019 NKFA Unable to assess criticality 12/29/2019 NKEA Unable to assess criticality 12/29/2019 Medications Active Medications SIG Qnty Indications Ordering Provide r Date Prazosin HCL 1mg Capsules 1 cap by mouth daily at bedtime 30caps F43.8 Waqas Dunn MD Citalopram Hydrobromide 10mg Table ts 1 by mouth every day, add to 20mg for total of 30mg daily. 30tabs F43.8 Waqas Dunn MD 09/13/2020 Citalopram Hydrobromide 20mg Table ts 1 tab by mouth every day 30tabs F43.8 Waqas Dunn MD 020 Naproxen 375mg Tablets Unknown Hydroxyzine HCL 25mg Tablets 1 tab by mouth every 6 hours as needed Unknown Immunizations Description No Information Available Vital Signs Date Vital Result Comment 12/29/2019 9:04am BP Systolic Sitting 109 mmHg BP Diastolic Sitting 73 mmHg Heart Rate 71 /min Body Temperature 98.4 F Oral Respiratory Rate 18 /min O2 % BldC Oximetry 100 % Weight 126.25 lb Weight 57.267 kg Height 67 inches 5'7" BMI (Body Mass Index) 19.8 kg/m2 BSA (Body Surface Area) 1.66 m2 Results Description No Information Available Procedures Date Code Description Status 02/27/2021 55276 Office/Outpatient Established Mo d MDM 30-39 Min Completed 11/28/2020 70745 Office/Outpatient Established Mo d MDM 30-39 Min Completed 10/28/2020 88908 Office/Outpatient Established Mo d MDM 30-39 Min Completed Medical Devices Description No Information Available Encounters Description No Information Available Assessments Date Code Description Provider 03/16/2021 F43.8 Other reactions to severe stress Lorri Lampack, [facility] 03/16/2021 F51.5 Nightmare disorder Lorri Lampa ck, [facility] 03/16/2021 G31.84 Mild cognitive impairment, so st ated Lorri Lampack, [facility] 03/16/2021 Z63.8 Other specified problems related to primary support group Lorri Lampack, [facility] 03/02/2021 F43.8 Other reactions to severe stress Lorri Lampack, [facility] 03/02/2021 F51.5 Nightmare disorder Lorri Lampa ck, [facility] 03/02/2021 G31.84 Mild cognitive impairment, so st ated Lorri Lampack, [facility] 03/02/2021 Z63.8 Other specified problems related to primary support group Lorri Lampack, [facility] 02/27/2021 F43.8 Other reactions to severe stress Jimbo Abrams PA-C 02/27/2021 F51.5 Nightmare disorder Jimbo Abrams PA-C 02/16/2021 F43.8 Other reactions to severe stress Lorri Lampack, [facility] 02/16/2021 G31.84 Mild cognitive impairment, so st ated Lorri Lampack, [facility] 01/25/2021 F43.8 Other reactions to severe stress Lorri Lampack, [facility] 01/25/2021 F51.5 Nightmare disorder Lorri Lampa ck, [facility] 01/25/2021 G31.84 Mild cognitive impairment, so st ated Lorri Lampack, [facility] 01/25/2021 Z63.8 Other specified problems related to primary support group Lorri Lampack, [facility] 12/28/2020 F43.8 Other reactions to severe stress Lorri Lampack, [facility] 12/28/2020 F51.5 Nightmare disorder Lorri Lampa ck, [facility] 12/28/2020 G31.84 Mild cognitive impairment, so st ated Lorri Lampack, [facility] 12/06/2020 F43.8 Other reactions to severe stress Lorri Lampack, [facility] 12/06/2020 F51.5 Nightmare disorder Lorri Lampa ck, [facility] 12/06/2020 G31.84 Mild cognitive impairment, so st ated Lorri Lampack, [facility] 11/28/2020 F43.8 Other reactions to severe stress RUSTY Sandra-C 11/28/2020 F51.5 Nightmare disorder Jimbo Abrams PA-C 11/18/2020 F43.8 Other reactions to severe stress Lorri Lampack, [facility] 11/18/2020 F51.5 Nightmare disorder Lorri Lampa ck, [facility] 11/18/2020 G31.84 Mild cognitive impairment, so st ated Lorri Lampack, [facility] 10/28/2020 F43.8 Other reactions to severe stress Jimbo Abrams PA-C 10/28/2020 F51.5 Nightmare disorder Jimbo Abrams , PA-C 10/18/2020 F43.8 Other reactions to severe stress Lorri Lampack, [facility] 10/18/2020 G31.84 Mild cognitive impairment, so st ated Lorri Lampack, [facility] 10/03/2020 F43.8 Other reactions to severe stress Lorri Lampack, [facility] 10/03/2020 G31.84 Mild cognitive impairment, so st ated Lorri Lampack, [facility] 09/20/2020 F43.8 Other reactions to severe stress Lorri Lampack, [facility] 09/20/2020 G31.84 Mild cognitive impairment, so st ated Lorri Lamptanvi, [facility] Plan of Treatment Future Appointment(s):* 03/30/2021 11:00 am - HENNY Ramos at [facility] * 05/23/2021 10:40 am - Jimbo Abrams PA-C at [facility] Functional Status Description No Information Available Mental Status Description No Information Available Referrals Description No Information Available
--- OUTSIDE RECORDS SUMMARY | 2021-03-22 08:58 | CCD | Continuity of Care Document ---
Author Author Natasha BARKLEY M.D. Organization Unknown Address [address] [place] [address] Phone [phone] Care Team Providers Care Lubricating Engineer Name Role Phone Catherine Pitts M.D. AUTM [phone] Problems Active Problems Provider Date Neck pain Doris Barkley M.D. Onset: 03/11/2019 Migraine Doris Barkley M.D. Onset: 03/11/2019 Postconcussion syndrome Doris Barkley M.D. Onset: 019 Social History Type Date Description Comments Sex Unknown Tobacco Use Start: Unknown Patient has never smoked Allergies and adverse reactions Description No Known Drug Allergies Medications Active Medications SIG Qnty Indications Ordering Provide r Date Ajovy 225mg/1.5ML Solution Auto-In ject take one injection subcutaneously once a month. 1.500ml Doris Barkley M.D. 02/24/2021 Prednisone 20mg Tablets Take 60mg x2days, then 40mg x2 day, then 20mg x2days, then 10mg x2days. then stop. 21theresa Barkley M.D. 02/24/2021 Nurtec 75mg Tablets Dispers take 1 tab at the immediate onset of migraine. 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 8theresa Barkley M.D. 03/08/2020 Ondansetron 4mg Tablets Dispers take 1 tab every 8 hours as needed for migraine and or nausea and vomiting. 30theresa Barkley M.D. 06/01/2019 Naproxen 375mg Tablets patient takes 1 tab PO prn once a day Doris Barkley M.D. Gabapentin 100mg Capsules take 200 mg at bedtime 60caps Doris Barkley M.D. Medications Administered in Office Medication SIG Qnty Indications Ordering Provider Date Injection fremanezumab-vfrm 1 Inj ection Doris Barkley M.D. 03/03/2021 Immunizations Description No Information Available Vital Signs Date Vital Result Comment 02/24/2021 11:18am Respiratory Rate 12 /min Height 67 inches 5'7" Weight 126.00 lb BMI (Body Mass Index) 19.7 kg/m2 [place] Body Weight 135 lb 11/10/2020 11:57am Respiratory Rate 12 /min Height 67 inches 5'7" Weight 126.00 lb BMI (Body Mass Index) 19.7 kg/m2 [place] Body Weight 135 lb Results Description No Information Available Procedures Date Code Description Status 03/03/2021 71806 Chemotherpy Admin Subcutaneous/I m Non-Hormonal Anti-Neoplastic Completed 03/03/2021 96901 Chemotherpy Admin Subcutaneous/I m Non-Hormonal Anti-Neoplastic Completed 02/24/2021 06200 Office/Outpatient Established Mo d MDM 30-39 Min Completed 11/15/2020 86053 MRI Brain W/O Contrast, Followed By Contrast Completed 11/15/2020 55304 MRI Brain W/O Contrast, Followed By Contrast Completed 11/10/2020 93525 Office/Outpatient Established Mo d MDM 30-39 Min Completed Medical Devices Description No Information Available Encounters Type Date Location Provider Dx Diagnosis Office Visit 02/24/2021 11:00a Main [place] Doris brand M.D. D35.2 Benign neoplasm of pituitary gland G43.719 Chronic migraine w/o aura, i ntractable, w/o stat migr G43.719 Chronic migraine w/o aura, i ntractable, w/o stat migr Office Visit 11/10/2020 11:45a Main office - [place] Doris brand M.D. G43.719 Chronic migraine w/o aura, intractable, w/o stat migr Assessments Date Code Description Provider 03/03/2021 R51.9 Headache, unspecified Doris cabrera M.D. 02/24/2021 D35.2 Benign neoplasm of pituitary gla nd Doris Barkley M.D. 02/24/2021 G43.719 Chronic migraine wit hout aura, intractable, without status migrainosus Doris Barkley M.D. 02/24/2021 G43.719 Chronic migraine wit hout aura, intractable, without status migrainosus Doris Barkley M.D. 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 11/15/2020 D35.2 Benign neoplasm of pituitary gla nd MRI 11/15/2020 R52 Pain, unspecified Phuong Broussard 11/15/2020 R52 Pain, unspecified MRI 11/10/2020 G43.719 Chronic migraine wit hout aura, intractable, without status migrainosus Doris Barkley M.D. Plan of Treatment Future Appointment(s):* 04/03/2021 11:55 am - Doris Barkley M.D. at [facility] * 06/13/2021 1:00 pm - Doris Barkley M.D. at [facility] Functional Status Description No Information Available Mental Status Description No Information Available Referrals Refer to Reason for Referral Status Appt Date Doris Barkley M.D. Created [address] [place] [address] [phone] Doris Barkley M.D. Created [address] [place] [address] [phone]
--- OUTSIDE RECORDS SUMMARY | 2021-03-22 08:58 | CCD | Continuity of Care Document ---
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 Onset: 12/11/2019 Other reactions to severe stress [...] Available Procedures Date Code Description Status 02/27/2021 80974 Office/Outpatient Established Mo d MDM 30-39 Min Completed 11/28/2020 30405 Office/Outpatient Established Mo d MDM 30-39 Min Completed 10/28/2020 42620 Office/Outpatient Established Mo d MDM 30-39 Min Completed Medical Devices Description No Information Available Encounters Description No Information Available Assessments Date Code Description Provider 03/16/2021 F43.8 Other reactions to severe stress Lorri Lampack, [facility] 03/16/2021 F51.5 Nightmare disorder Lorri Lampa ck, [facility] 03/16/2021 G31.84 Mild cognitive impairment, so st ated Lorri Lampack, [facility] 03/16/2021 Z63.8 Other specified problems related to primary support group Lorri Lampack, [facility] 03/02/2021 F43.8 Other reactions to severe stress Lorri Lampack, [facility] 03/02/2021 F51.5 Nightmare disorder Lorri Lampa ck, [facility] 03/02/2021 G31.84 Mild cognitive impairment, so st ated Lorri Lampack, [facility] 03/02/2021 Z63.8 Other specified problems related to primary support group Lorri Lampack, [facility] 02/27/2021 F43.8 Other reactions to severe stress iJmbo Abrams PA-C 02/27/2021 F51.5 Nightmare disorder Jimbo Abrams PA-C 02/16/2021 F43.8 Other reactions to severe stress Lorri Lampack, [facility] 02/16/2021 G31.84 Mild cognitive impairment, so st ated Lorri Lampack, [facility] 01/25/2021 F43.8 Other reactions to severe stress Lorri Lampack, [facility] 01/25/2021 F51.5 Nightmare disorder Lorri Lampa ck, [facility] 01/25/2021 G31.84 Mild cognitive impairment, so st ated Lorri Lampack, [facility] 01/25/2021 Z63.8 Other specified problems related to primary support group Lorri Lampack, [facility] 12/28/2020 F43.8 Other reactions to severe stress Lorri Lampack, [facility] 12/28/2020 F51.5 Nightmare disorder Lorri Lampa ck, [facility] 12/28/2020 G31.84 Mild cognitive impairment, so st ated Lorri Lampack, [facility] 12/06/2020 F43.8 Other reactions to severe stress Lorri Lampack, [facility] 12/06/2020 F51.5 Nightmare disorder Lorri Lampa ck, [facility] 12/06/2020 G31.84 Mild cognitive impairment, so st ated Lorri Lampack, [facility] 11/28/2020 F43.8 Other reactions to severe stress RUSTY Sandra-C 11/28/2020 F51.5 Nightmare disorder Jimbo Abrams PA-C 11/18/2020 F43.8 Other reactions to severe stress Lorri Lampack, [facility] 11/18/2020 F51.5 Nightmare disorder Lorri Lampa ck, [facility] 11/18/2020 G31.84 Mild cognitive impairment, so st ated Lorri Lampack, [facility] 10/28/2020 F43.8 Other reactions to severe stress Jimbo Abrams PA-C 10/28/2020 F51.5 Nightmare disorder Jimbo Abrams , PA-C 10/18/2020 F43.8 Other reactions to severe stress Lorri Lampack, [facility] 10/18/2020 G31.84 Mild cognitive impairment, so st ated Lorri Lampack, [facility] 10/03/2020 F43.8 Other reactions to severe stress Lorri Lampack, [facility] 10/03/2020 G31.84 Mild cognitive impairment, so st ated Lorri Lampack, [facility] 09/20/2020 F43.8 Other reactions to severe stress Lorri Lampack, [facility] 09/20/2020 G31.84 Mild cognitive impairment, so st ated Lorri Lamptanvi, [facility] Plan of Treatment Future Appointment(s):* 03/30/2021 11:00 am - HENNY Ramos at [facility] * 05/23/2021 10:40 am - Jimbo Abrams PA-C at [facility] Functional Status Description No Information Available Mental Status Description No Information Available Referrals Description No Information Available
--- OUTSIDE RECORDS SUMMARY | 2021-03-22 08:58 | CCD | Continuity of Care Document ---
Author Author Natasha ABRAMS I PA-C Organization Unknown Address [facility] [address] [place] [address] Phone [phone] Care Team Providers Care Porcelain Finish Sprayer Name Role Phone Catherine Pitts Unavailable Problems Active Problems Provider Date Other specified problems related to primary support group Justen Hernandez, [facility] Onset: 12/11/2019 Other reactions to severe stress Franky Hernandez, [facility] Onset: 12/11/2019 Social History Type Date Description Comments Sex Unknown Allergies, Adverse Reactions, Alerts Active Allergies Criticality Reaction | Severity Comments Date NKDA Unable to assess criticality 12/29/2019 NKFA Unable to assess criticality 12/29/2019 NKEA Unable to assess criticality 12/29/2019 Medications Active Medications SIG Qnty Indications Ordering Provide r Date Prazosin HCL 1mg Capsules 1 cap by mouth daily at bedtime 30caps F43.8 Waqas Dunn MD 1 Citalopram Hydrobromide 10mg Table ts 1 by [...] Available Procedures Date Code Description Status 02/27/2021 93809 Office/Outpatient Established Mo d MDM 30-39 Min Completed 11/28/2020 60963 Office/Outpatient Established Mo d MDM 30-39 Min Completed 10/28/2020 84941 Office/Outpatient Established Mo d MDM 30-39 Min Completed 09/13/2020 34746 Office/Outpatient Established Mo d MDM 30-39 Min Completed Medical Devices Description No Information Available Encounters Type Date Location Provider Dx Diagnosis Office Visit 02/27/2021 11:[facility] Jimbo Abrams PA-C F43.8 Other reactions to severe stress F51.5 Nightmare disorder Assessments Date Code Description Provider 02/27/2021 F43.8 Other reactions to severe stress Jimbo Abrams PA-C 02/27/2021 F51.5 Nightmare disorder Jimbo Abrams PA-C 02/16/2021 F43.8 Other reactions to severe stress Lorri Lampack, [facility] 02/16/2021 G31.84 Mild cognitive impairment, so st ated Lorri Lampack, [facility] 01/25/2021 F43.8 Other reactions to severe stress Lorri Lampack, [facility] 01/25/2021 F51.5 Nightmare disorder Lorri Lampa ck, [facility] 01/25/2021 G31.84 Mild cognitive impairment, so st ated Lorri Lampack, [facility] 01/25/2021 Z63.8 Other specified problems related to primary support group Lorri Lampack, [facility] 12/28/2020 F43.8 Other reactions to severe stress Lorri Lampack, [facility] 12/28/2020 F51.5 Nightmare disorder Lorri Lampa ck, [facility] 12/28/2020 G31.84 Mild cognitive impairment, so st ated Lorri Lampack, [facility] 12/06/2020 F43.8 Other reactions to severe stress Lorri Lampack, [facility] 12/06/2020 F51.5 Nightmare disorder Lorri Lampa ck, [facility] 12/06/2020 G31.84 Mild cognitive impairment, so st ated Lorri Lampack, [facility] 11/28/2020 F43.8 Other reactions to severe stress RUSTY Sandra-C 11/28/2020 F51.5 Nightmare disorder Jimbo Abrams , PA-C 11/18/2020 F43.8 Other reactions to severe stress Lorri Lampack, [facility] 11/18/2020 F51.5 Nightmare disorder Lorri Lampa ck, [facility] 11/18/2020 G31.84 Mild cognitive impairment, so st ated Lorri Lampack, [facility] 10/28/2020 F43.8 Other reactions to severe stress Jimbo Abrams, PA-C 10/28/2020 F51.5 Nightmare disorder Jimbo Abrams , PA-C 10/18/2020 F43.8 Other reactions to severe stress Lorri Lampack, [facility] 10/18/2020 G31.84 Mild cognitive impairment, so st ated Lorri Lampack, [facility] 10/03/2020 F43.8 Other reactions to severe stress Lorri Lampack, [facility] 10/03/2020 G31.84 Mild cognitive impairment, so st ated Lorri Lampack, [facility] 09/20/2020 F43.8 Other reactions to severe stress Lorri Lampack, [facility] 09/20/2020 G31.84 Mild cognitive impairment, so st ated Lorri Lampack, [facility] 09/13/2020 F43.8 Other reactions to severe stress RUSTY Sandra-C 09/06/2020 F43.8 Other reactions to severe stress Lorri Lampack, [facility] 09/06/2020 G31.84 Mild cognitive impairment, so st ated Lorri Helio, [facility] Plan of Treatment Future Appointment(s):* 05/23/2021 10:40 am - Jimbo Abrams PA-C at [facility] * 03/02/2021 9:00 am - HENNY Ramos at [facility] Functional Status Description No Information Available Mental Status Description No Information Available Referrals Description No Information Available
--- OUTSIDE RECORDS SUMMARY | 2021-03-22 08:58 | CCD | Continuity of Care Document ---
Author Author Natasha BARKLEY M.D. Organization Unknown Address [address] [place] [address] Phone [phone] Care Team Providers Care Referral Coordinator Name Role Phone Catherine Pitts M.D. AUTM [phone] Problems Active Problems Provider Date Neck pain Doris Barkley M.D. Onset: 03/11/2019 Migraine Doris Barkley M.D. Onset: 03/11/2019 Postconcussion syndrome Doris Barkley M.D. Onset: 019 Social History Type Date Description Comments Sex Unknown Tobacco Use Start: Unknown Patient has never smoked Allergies, Adverse Reactions, Alerts Description No Known [...] prn once a day Doris Barkley M.D. 00 Gabapentin 100mg Capsules take 200 mg at bedtime 60caps Doris Barkley M.D. Immunizations Description No Information Available Vital Signs Date Vital Result Comment 02/24/2021 11:18am Respiratory Rate 12 /min Height 67 inches 5'7" Weight 126.00 lb BMI (Body Mass Index) 19.7 kg/m2 [place] Body Weight 135 lb 11/10/2020 11:57am Respiratory Rate 12 /min Height 67 inches 5'7" Weight 126.00 lb BMI (Body Mass Index) 19.7 kg/m2 [place] Body Weight 135 lb Results Description No Information Available Procedures Date Code Description Status 11/15/2020 46416 MRI Brain W/O Contrast, Followed By Contrast Completed 11/15/2020 44960 MRI Brain W/O Contrast, Followed By Contrast Completed 11/10/2020 57160 Office/Outpatient Established Mo d MDM 30-39 Min Completed Medical Devices Description No Information Available Encounters Type Date Location Provider Dx Diagnosis Office Visit 11/10/2020 11:45a Main office - [place] Doris brand M.D. G43.719 Chronic migraine w/o aura, intractable, w/o stat migr Assessments Date Code Description Provider 02/24/2021 G43.719 Chronic migraine wit hout aura, intractable, without status migrainosus Doris Barkley M.D. 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 11/15/2020 D35.2 Benign neoplasm of pituitary gla nd MRI 11/15/2020 R52 Pain, unspecified Phuong Broussard 11/15/2020 R52 Pain, unspecified MRI 11/10/2020 G43.719 Chronic migraine wit hout aura, intractable, without status migrainosus Doris Barkley M.D. Plan of Treatment No Information Available Functional Status Description No Information Available Mental Status Description No Information Available Referrals Refer to Reason for Referral Status Appt Date Doris Barkley M.D. Created 0 [address] [place] [address] [phone]
--- OUTSIDE RECORDS SUMMARY | 2021-03-22 08:58 | CCD | Continuity of Care Document ---
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: 12/11/2019 Other reactions to severe stress [...] Available Procedures Date Code Description Status 02/27/2021 96069 Office/Outpatient Established Mo d MDM 30-39 Min Completed 11/28/2020 84905 Office/Outpatient Established Mo d MDM 30-39 Min Completed 10/28/2020 08974 Office/Outpatient Established Mo d MDM 30-39 Min Completed Medical Devices Description No Information Available Encounters Description No Information Available Assessments Date Code Description Provider 03/16/2021 F43.8 Other reactions to severe stress Lorri Lampack, [facility] 03/16/2021 F51.5 Nightmare disorder Lorri Lampa ck, [facility] 03/16/2021 G31.84 Mild cognitive impairment, so st ated Lorri Lampack, [facility] 03/16/2021 Z63.8 Other specified problems related to primary support group Lorri Lampack, [facility] 03/02/2021 F43.8 Other reactions to severe stress Lorri Lampack, [facility] 03/02/2021 F51.5 Nightmare disorder Lorri Lampa ck, [facility] 03/02/2021 G31.84 Mild cognitive impairment, so st ated Lorri Lampack, [facility] 03/02/2021 Z63.8 Other specified problems related to primary support group Lorri Lampack, [facility] 02/27/2021 F43.8 Other reactions to severe stress Jimbo Abrams PA-C 02/27/2021 F51.5 Nightmare disorder Jimbo Abrams PA-C 02/16/2021 F43.8 Other reactions to severe stress Lorri Lampack, [facility] 02/16/2021 G31.84 Mild cognitive impairment, so st ated Lorri Lampack, [facility] 01/25/2021 F43.8 Other reactions to severe stress Lorri Lampack, [facility] 01/25/2021 F51.5 Nightmare disorder Lorri Lampa ck, [facility] 01/25/2021 G31.84 Mild cognitive impairment, so st ated Lorri Lampack, [facility] 01/25/2021 Z63.8 Other specified problems related to primary support group Lorri Lampack, [facility] 12/28/2020 F43.8 Other reactions to severe stress Lorri Lampack, [facility] 12/28/2020 F51.5 Nightmare disorder Lorri Lampa ck, [facility] 12/28/2020 G31.84 Mild cognitive impairment, so st ated Lrori Lampack, [facility] 12/06/2020 F43.8 Other reactions to severe stress Lorri Lampack, [facility] 12/06/2020 F51.5 Nightmare disorder Lorri Lampa ck, [facility] 12/06/2020 G31.84 Mild cognitive impairment, so st ated Lorri Lampack, [facility] 11/28/2020 F43.8 Other reactions to severe stress RUSTY Sandra-C 11/28/2020 F51.5 Nightmare disorder Jimbo Abrams PA-C 11/18/2020 F43.8 Other reactions to severe stress Lorri Lampack, [facility] 11/18/2020 F51.5 Nightmare disorder Lorri Lampa ck, [facility] 11/18/2020 G31.84 Mild cognitive impairment, so st ated Lorri Lampack, [facility] 10/28/2020 F43.8 Other reactions to severe stress Jimbo Abrams PA-C 10/28/2020 F51.5 Nightmare disorder Jimbo Abrams , PA-C 10/18/2020 F43.8 Other reactions to severe stress Lorri Lampack, [facility] 10/18/2020 G31.84 Mild cognitive impairment, so st ated Lorri Lampack, [facility] 10/03/2020 F43.8 Other reactions to severe stress Lorri Lampack, [facility] 10/03/2020 G31.84 Mild cognitive impairment, so st ated Lorri Lampack, [facility] 09/20/2020 F43.8 Other reactions to severe stress Lorri Lampack, [facility] 09/20/2020 G31.84 Mild cognitive impairment, so st ated Lorri Lamptanvi, [facility] Plan of Treatment Future Appointment(s):* 03/30/2021 11:00 am - HENNY Ramos at [facility] * 05/23/2021 10:40 am - Jimbo Abrams PA-C at [facility] Functional Status Description No Information Available Mental Status Description No Information Available Referrals Description No Information Available
--- OUTSIDE RECORDS SUMMARY | 2021-03-22 08:58 | CCD | Continuity of Care Document ---
Author Author Natasha BARKLEY M.D. Organization Unknown Address [address] [place] [address] Phone [phone] Care Team Providers Care Toy Assembly Supervisor Name Role Phone Catherine Pitts M.D. AUTM [phone] Problems Active Problems Provider Date Neck pain [...] lb BMI (Body Mass Index) 19.7 kg/m2 [place] Body Weight 135 lb 11/10/2020 11:57am Respiratory Rate 12 /min Height 67 inches 5'7" Weight 126.00 lb BMI (Body Mass Index) 19.7 kg/m2 [place] Body Weight 135 lb Results Description No Information Available Procedures Date Code Description Status 02/24/2021 74122 Office/Outpatient Established Mo d MDM 30-39 Min Completed 11/15/2020 96764 MRI Brain W/O Contrast, Followed By Contrast Completed 11/15/2020 86977 MRI Brain W/O Contrast, Followed By Contrast Completed 11/10/2020 01715 Office/Outpatient Established Mo d MDM 30-39 Min Completed Medical Devices Description No Information Available Encounters Type Date Location Provider Dx Diagnosis Office Visit 02/24/2021 11:00a Main office - [place] Doris brand M.D. D35.2 Benign neoplasm of pituitary gland G43.719 Chronic migraine w/o aura, i ntractable, w/o stat migr G43.719 Chronic migraine w/o aura, i ntractable, w/o stat migr Office Visit 11/10/2020 11:45a Main office - [place] Doris brand M.D. G43.719 Chronic migraine w/o aura, intractable, w/o stat migr Assessments Date Code Description Provider 02/24/2021 D35.2 Benign neoplasm of pituitary gla michele Barkley M.D. 02/24/2021 G43.719 Chronic migraine wit [...] Barkley M.D. Plan of Treatment Future Appointment(s):* 06/13/2021 1:00 pm - Doris Barkley M.D. at [facility] * 03/03/2021 12:15 pm - Doris Barkley M.D. at [facility] Functional Status Description No Information Available Mental Status Description No Information Available Referrals Refer to Reason for Referral Status Appt Date Doris Barkley M.D. Created 0 [facility] [place] [address] [phone]
--- OUTSIDE RECORDS SUMMARY | 2021-03-22 08:58 | CCD | Continuity of Care Document ---
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 Onset: 12/11/2019 Other reactions to severe stress [...] Available Procedures Date Code Description Status 02/27/2021 59128 Office/Outpatient Established Mo d MDM 30-39 Min Completed 11/28/2020 34787 Office/Outpatient Established Mo d MDM 30-39 Min Completed 10/28/2020 76307 Office/Outpatient Established Mo d MDM 30-39 Min Completed 09/13/2020 12172 Office/Outpatient Established Mo d MDM 30-39 Min Completed Medical Devices Description No Information Available Encounters Description No Information Available Assessments Date Code Description Provider 03/02/2021 F43.8 Other reactions to severe stress Lorri Lampack, [facility] 03/02/2021 F51.5 Nightmare disorder Lorri Lampa ck, [facility] 03/02/2021 G31.84 Mild cognitive impairment, so st ated Lorri Lampack, [facility] 03/02/2021 Z63.8 Other specified problems related to primary support group Lorri Lampack, [facility] 02/27/2021 F43.8 Other reactions to severe stress iJmbo Abrams PA-C 02/27/2021 F51.5 Nightmare disorder Jimbo Abrams PA-C 02/16/2021 F43.8 Other reactions to severe stress Lorri Lampack, [facility] 02/16/2021 G31.84 Mild cognitive impairment, so st ated Lorri Lampack, [facility] 01/25/2021 F43.8 Other reactions to severe stress Lorri Lampack, [facility] 01/25/2021 F51.5 Nightmare disorder Lorri Lampa ck, [facility] 01/25/2021 G31.84 Mild cognitive impairment, so st ated Lorri Lampack, [facility] 01/25/2021 Z63.8 Other specified problems related to primary support group Lorri Lampack, [facility] 12/28/2020 F43.8 Other reactions to severe stress Lorri Lampack, [facility] 12/28/2020 F51.5 Nightmare disorder Lorri Lampa ck, [facility] 12/28/2020 G31.84 Mild cognitive impairment, so st ated Lorri Lampack, [facility] 12/06/2020 F43.8 Other reactions to severe stress Lorri Lampack, [facility] 12/06/2020 F51.5 Nightmare disorder Lorri Lampa ck, [facility] 12/06/2020 G31.84 Mild cognitive impairment, so st ated Lorri Lampack, [facility] 11/28/2020 F43.8 Other reactions to severe stress Jimbo Abrams, PA-C 11/28/2020 F51.5 Nightmare disorder Jimbo Abrams , PA-C 11/18/2020 F43.8 Other reactions to severe stress Lorri Lampack, [facility] 11/18/2020 F51.5 Nightmare disorder Lorri Lampa ck, [facility] 11/18/2020 G31.84 Mild cognitive impairment, so st ated Lorri Lampack, [facility] 10/28/2020 F43.8 Other reactions to severe stress Jimbo Abrams, PA-C 10/28/2020 F51.5 Nightmare disorder Jimbo Abrams , PA-C 10/18/2020 F43.8 Other reactions to severe stress Lorri Lampack, [facility] 10/18/2020 G31.84 Mild cognitive impairment, so st ated Lorri Lampack, [facility] 10/03/2020 F43.8 Other reactions to severe stress Lorri Lampack, [facility] 10/03/2020 G31.84 Mild cognitive impairment, so st ated Lorri Lampack, [facility] 09/20/2020 F43.8 Other reactions to severe stress Lorri Lampack, [facility] 09/20/2020 G31.84 Mild cognitive impairment, so st ated Lorri Lampack, [facility] 09/13/2020 F43.8 Other reactions to severe stress Jimbo Abrams, PA-C 09/06/2020 F43.8 Other reactions to severe stress Lorri Lampack, [facility] 09/06/2020 G31.84 Mild cognitive impairment, so st ated Lorri Lamptanvi, [facility] Plan of Treatment Future Appointment(s):* 03/16/2021 11:00 am - HENNY Ramos at [facility] * 05/23/2021 10:40 am - RUSTY Sandra-C at [facility] Functional Status Description No Information Available Mental Status Description No Information Available Referrals Description No Information Available
--- OUTSIDE RECORDS SUMMARY | 2021-03-22 08:58 | CCD | Continuity of Care Document ---
Author Author Natasha FLORES MD Organization Unknown Address [id number] [place] [address] , [facility] [address] [place] [address] Phone [phone] Care Team Providers Care Safe And Vault Mechanic Name Role Phone Catherine Pitts M.D. AUTM [phone] AUTM Unavailable AUTM Unavailable Problems Active Problems [...] CPT Code Status Date Vaccine Lot # [id number] Given 03/11/2020 [place], Quadrivalent Vital Signs Date Vital Result Comment 02/13/2021 10:54am Body Temperature 97.9 F 01/02/2021 10:16am Body Temperature 97.0 F Results Description No Information Available Procedures Date Code Description Status 02/24/2021 59163 Office/Outpatient Established Mo d MDM 30-39 Min Completed 02/13/2021 58388 Office/Outpatient Established Mo d MDM 30-39 Min Completed 01/02/2021 04009 Office/Outpatient Established Mo d MDM 30-39 Min Completed 01/02/202117440 Inject/Drain Arthrocentesis Veronika r Joint/Bursa/Ganglion Cyst Completed 11/21/2020 00061 Office/Outpatient Established Lo w MDM 20-29 Min Completed 10/10/2020 34266 Office/Outpatient New Moderate M DM 45-59 Minutes Completed Medical Devices Description No Information Available Encounters Type Date Location Provider Dx Diagnosis Office Visit 02/24/2021 2:30p [facility] Hesham Flores MD M75.41 Impingement syndrome of right shoulder G56.21 Lesion of ulnar nerve, right upper limb Office Visit 02/13/2021 10:45a [facility] Hesham Flores MD M75.41 Impingement syndrome of right shoulder G56.21 Lesion of ulnar nerve, right upper limb Office Visit 01/02/2021 10:15a [facility] Flores MD M75.41 Impingement syndrome of right shoulder G56.21 Lesion of ulnar nerve, right upper limb Office Visit 11/21/2020 11:30a Alice Flores MD M75.41 Impingement syndrome of right shoulder Office Visit 10/10/2020 11:00a [facility] Hesham Flores MD M75.41 Impingement syndrome [...] 10/10/2020 M75.41 Impingement syndrome of right sh mónica Flores MD 10/10/2020 M25.511 Pain in right shoulder Hesham murry MD Plan of Treatment No Information Available Functional Status Functional Condition Comment Date Status Independent with all ADL's Activ e Independent with all IADL's Acti ve Mental Status Mental Condition Comment Date Status None Active Referrals Description No Information Available
--- OUTSIDE RECORDS SUMMARY | 2021-03-22 08:58 | CCD | Continuity of Care Document ---
Author Author Natasha BARKLEY M.D. Organization Unknown Address [address] [place] [address] Phone [phone] Care Team Providers Care Log Roller Name Role Phone Catherine Pitts M.D. AUTM [phone] Problems Active Problems Provider Date Neck pain [...] lb BMI (Body Mass Index) 19.7 kg/m2 [place] Body Weight 135 lb 11/10/2020 11:57am Respiratory Rate 12 /min Height 67 inches 5'7" Weight 126.00 lb BMI (Body Mass Index) 19.7 kg/m2 [place] Body Weight 135 lb Results Description No Information Available Procedures Date Code Description Status 03/03/2021 19270 Chemotherpy Admin Subcutaneous/I m Non-Hormonal Anti-Neoplastic Completed 02/24/2021 60817 Office/Outpatient Established Mo d MDM 30-39 Min Completed 11/15/2020 07040 MRI Brain W/O Contrast, Followed By Contrast Completed 11/15/2020 96074 MRI Brain W/O Contrast, Followed By Contrast Completed 11/10/2020 97658 Office/Outpatient Established Mo d MDM 30-39 Min Completed Medical Devices Description No Information Available Encounters Type Date Location Provider Dx Diagnosis Office Visit 02/24/2021 11:00a Main office - [place] Doris brand M.D. D35.2 Benign neoplasm of pituitary gland G43.719 Chronic migraine w/o aura, i ntractable, w/o stat migr G43.719 Chronic migraine w/o aura, i ntractable, w/o stat migr Office Visit 11/10/2020 11:45a Main office - [place] Doris brand M.D. G43.719 Chronic migraine w/o [...] 11:55 am - Doris Barkley M.D. at [facility] * 06/13/2021 1:00 pm - Doris Barkley M.D. at [facility] Functional Status Description No Information Available Mental Status Description No Information Available Referrals Refer to Reason for Referral Status Appt Date Doris Barkley M.D. Created 0 [address] [place] [address] [phone]
--- OUTSIDE RECORDS SUMMARY | 2021-03-22 08:59 | CCD | Continuity of Care Document ---
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: 12/11/2019 Other reactions to severe stress [...] Information Available Procedures Date Code Description Status 11/28/2020 85819 Office/Outpatient Established Mo d MDM 30-39 Min Completed 10/28/2020 95392 Office/Outpatient Established Mo d MDM 30-39 Min Completed 09/13/2020 54525 Office/Outpatient Established Mo d MDM 30-39 Min Completed Medical Devices Description No Information Available Encounters Description No Information Available Assessments Date Code Description Provider 01/25/2021 F43.8 Other reactions to severe stress Lorri Lampack, [facility] 01/25/2021 F51.5 Nightmare disorder Lorri Lampa ck, [facility] 01/25/2021 G31.84 Mild cognitive impairment, so st ated Lorri Lampack, [facility] 01/25/2021 Z63.8 Other specified problems related to primary support group Lorri Lampack, [facility] 12/28/2020 F43.8 Other reactions to severe stress Lorri Lampack, [facility] 12/28/2020 F51.5 Nightmare disorder Lorri Lampa ck, [facility] 12/28/2020 G31.84 Mild cognitive impairment, so st ated Lorri Lampack, [facility] 12/06/2020 F43.8 Other reactions to severe stress Lorri Lampack, [facility] 12/06/2020 F51.5 Nightmare disorder Lorri Lampa ck, [facility] 12/06/2020 G31.84 Mild cognitive impairment, so st ated Lorri Lampack, [facility] 11/28/2020 F43.8 Other reactions to severe stress Jimbo Abrams PA-C 11/28/2020 F51.5 Nightmare disorder Jimbo Abrams PA-C 11/18/2020 F43.8 Other reactions to severe stress Lorri Lampack, [facility] 11/18/2020 F51.5 Nightmare disorder Lorri Lampa ck, [facility] 11/18/2020 G31.84 Mild cognitive impairment, so st ated Lorri Lampack, [facility] 10/28/2020 F43.8 Other reactions to severe stress Jimbo Abrams PA-C 10/28/2020 F51.5 Nightmare disorder Jimbo Abrams PA-C 10/18/2020 F43.8 Other reactions to severe stress Lorri Lampack, [facility] 10/18/2020 G31.84 Mild cognitive impairment, so st ated Lorri Lampack, [facility] 10/03/2020 F43.8 Other reactions to severe stress Lorri Lampack, [facility] 10/03/2020 G31.84 Mild cognitive impairment, so st ated Lorri Lampack, [facility] 09/20/2020 F43.8 Other reactions to severe stress Lorri Lampack, [facility] 09/20/2020 G31.84 Mild cognitive impairment, so st ated Lorri Lamptanvi, [facility] 09/13/2020 F43.8 Other reactions to severe stress Jimbo Abrams PA-C 09/06/2020 F43.8 Other reactions to severe stress Lorri Lamptanvi, [facility] 09/06/2020 G31.84 Mild cognitive impairment, so st ated Lorri Cadet, [facility] 08/19/2020 F43.8 Other reactions to severe stress Lorri Lampack, [facility] 08/19/2020 G31.84 Mild cognitive impairment, so st ated HENNY Ramos Plan of Treatment Future Appointment(s):* 03/02/2021 9:00 am - HENNY Ramos at [facility] * 02/27/2021 11:00 am - Jimbo Abrams PA-C at [facility] Functional Status Description No Information Available Mental Status Description No Information Available Referrals Description No Information Available
--- OUTSIDE RECORDS SUMMARY | 2021-03-22 08:59 | CCD ---
Continuity of Care Document (CCD) Created on: 01/02/2021 Natasha Bucio External Reference #: [id number] : [id number] Sex: Female Author Author Natasha FLORES MD Organization Unknown Address [id number] [place] [address] , [facility] [address] [place] [address] Phone [phone] Care Team Providers Care Cotton Chopper Name Role Phone Catherine Pitts M.D. AUTM [phone] AUTM Unavailable AUTM Unavailable Problems Active Problems Provider Date Transient insomnia [employer] [facility] Onset: 07/27/2020 Social History Type Date Description Comments Sex Unknown ETOH Use Denies alcohol use Tobacco Use Start: Unknown End: Unknown Patient is a former smoker Recreational Drug Use Denies Drug Use Smoking Status Reviewed: 07/27/20 Patient is a former smoker Allergies, Adverse Reactions, Alerts Description No Known Drug Allergies Medications Active Medications SIG Qnty Indications Ordering Provide r Date Gabapentin 100mg Capsules 2 caps by mouth every day 90caps Unknown Hydroxyzine HCL 25mg Tablets 1 tab three times a day as needed Unknown Citalopram Hydrobromide 20mg Table ts 1 tab by mouth every day Jimbo Abrams PA Prazosin HCL 1mg Capsules 1 cap at bedtime Unknown Immunizations CPT Code Status Date Vaccine Lot # [id number] Given 03/11/2020 Afluria, Quadrivalent, 0.5ml , [facility]# [id number] Vital Signs Date Vital Result Comment 01/02/2021 10:16am Body Temperature 97.0 F 10/10/2020 10:52am BP Systolic 102 mmHg BP Diastolic 68 mmHg Heart Rate 68 /min O2 % BldC Oximetry 98 % Respiratory Rate 15 /min Body Temperature 96.6 F Height 67 inches 5'7" Weight 133.00 lb BMI (Body Mass Index) 20.8 kg/m2 [place] Body Weight 135 lb Weight 60.329 kg BSA (Body Surface Area) 1.70 m2 Results Test Acquired Date Facility Test Result H/L Range Note Order 01/02/2021 [facility] [address] [place] [address] [phone] Elbow extension night time splint <pending> Procedures Date Code Description Status 01/02/2021 40186 Office/Outpatient Established Mo d MDM 30-39 Min Completed 01/02/202187629 Inject/Drain Arthrocentesis Veronika r Joint/Bursa/Ganglion Cyst Completed 11/21/2020 79153 Office/Outpatient Established Lo w MDM 20-29 Min Completed 10/10/2020 57427 Office/Outpatient New Moderate M DM 45-59 Minutes Completed 07/27/2020 71678 Office/Outpatient Established Lo w MDM 20-29 Min Completed Medical Devices Description No Information Available Encounters Type Date Location Provider Dx Diagnosis Office Visit 01/02/2021 10:15a [facility] Hesham Flores MD M75.41 Impingement syndrome of right shoulder G56.21 Lesion of ulnar nerve, right upper limb Office Visit 11/21/2020 11:30a [facility] Hesham Flores MD M75.41 Impingement syndrome of right shoulder Office Visit 10/10/2020 11:00a [facility] Hesham Flores MD M75.41 Impingement syndrome of right shoulder M25.511 Pain in right shoulder Office Visit 07/27/2020 1:00p [facility] [employer] [facility] D.O[facility] F51.02 Adjustment insomnia Assessments Date Code Description Provider 01/02/2021 M75.41 Impingement syndrome of right sh mónica Flores MD 01/02/2021 G56.21 Lesion of ulnar nerve, right upp er limb Hesham Flores MD 11/21/2020 M75.41 Impingement syndrome of right sh mónica Flores MD 10/10/2020 M75.41 Impingement syndrome of right sh mónica Flores MD 10/10/2020 M25.511 Pain in right shoulder Hesham murry MD 07/27/2020 F51.02 Adjustment insomnia [employer] D.[facility] Plan of Treatment Future Appointment(s):* 02/13/2021 10:45 am - Hesham Flores MD at [facility] 01/02/2021 - Hesham Flores MD* M75.41 Impingement syndrome of right shoulder * G56.21 Lesion of ulnar nerve, right upper limb Functional Status Functional Condition Comment Date Status Independent with all ADL's Activ e Independent with all IADL's Acti ve Mental Status Mental Condition Comment Date Status None Active Referrals Description No Information Available
--- OUTSIDE RECORDS SUMMARY | 2021-03-22 08:59 | CCD ---
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 unless otherwise noted. Reported Physicians [facility] Ordered by Krystal Salazar NP on 03/29/[address] [place] [address], [facility] Collected: 03/29/2020 Reported: 04/01/2020 17:15 tel :[phone] Reported Physicians See Note None Note: Reported Physicians:Ordering: Jayy lam [id number], Krystal Farooqding: Krystal SalazarCopngoc To: [facility] To: Catherine Pitts Reviewed by Krystal Salazar NP on 04/09/2020; All test results are final unless otherwise noted. VITB12 & FOL [facility] Ordered by Krystal Salazar NP on 03/29/[address] [place] [address], [id number] Collected: 03/29/2020 Reported: 03/29/2020 10:19 tel :[phone] VITAMIN B12 LEVEL 808 PG/ML N (Normal) [...] are final unless otherwise noted. Reported Physicians [facility] Ordered by Krysatl Salazar NP on 03/29/[address] [place] [address], [id number] Collected: 03/29/2020 Reported: 03/29/2020 10:19 tel : Reported Physicians See Note None Note: Reported Physicians:Ordering: Jayy lam [id number], Krystal Farooqding: Alfredo Salazar To: Alfredo Salazar To: Catherine Pitts Reviewed by Krystal Salazar INVESTIGATIVE ASSISTANT on 04/01/2020; All test results are final unless otherwise noted. History of Present Illness History of Present Illness not supported for this document typeNo History of Present Illness Recorded Social History Description Last Updated Social history unchanged 01/24/2021 No caffeine use 05/20/2020 Not a current smoker 05/20/2020 Not using alcohol 05/20/2020 Not using drugs 05/20/2020 Poor exercise habits 05/20/2020 LIVES W/ PARENTS, SINGLE ~WORKS AT [employer] 40 HRS/WEEK. WORKED THERE SINCE MAR 2018 ~2-3 SEMESTERS AT [employer] 05/02/2020 No chocolate consumption 05/02/2020 No coffee consumption 05/02/2020 No tea consumption 05/02/2020 Activities of daily living 02/01/2020 Current every day smoker was five USED TO SMOKE CLOSE TO A PPD, NOW DOWN TO 5CPD 02/01/2020 No physical disability 02/01/2020 Self-reliant in usual daily activities 02/01/2020 Smoking Status Unknown Procedures and Surgical History Includes: Procedures from 01/25/2020 through 01/24/2021 Procedures Code Diagnosis Performing Provider Service Location Service Date MEDICAL RECORDS PREPARATION ($0.75 / PAGE+ postage) RECOR MEDICAL RECORD FEE Catherine Pitts MD Family Medicine [facility] 12/06/2020 Medical History Includes: Medical History in [...] 1 04/27/2019 Complete (Refused - Patient objection) [facility] Allergies Includes: Active, inactive, and resolved AllergiesNo Known Allergies Encounters Includes: Encounters from 01/25/2020 through 01/24/2021 Encounter Provider Location Date Check-In Time Check-Out Time D iagnosis NO FAULT Krystal Salazar INVESTIGATIVE ASSISTANT [facility] 01/24/2021 11:00AM 12/28/2020 11:59PM Postconcussion Syndrome NO FAULT Krystal Salazar INVESTIGATIVE ASSISTANT [facility] 12/28/2020 10:52AM 11:31AM Generalized Anxiety Disorder , Postconcussion Syndrome NO FAULT Krystal Salazar [facility] 11/29/2020 11:12AM 11:47AM Postconcussion Syndrome, Alexsander aracelis Headache NO FAULT Krystal Salazar [facility] 11/02/2020 10:57AM 11:19AM Postconcussion Syndrome NO FAULT Krystal Salazar INVESTIGATIVE ASSISTANT [facility] 10/04/2020 1:00PM 1:44PM Arthralgia - Shoulder Region Right, Postconcussion Syndrome, Generalized Anxiety Disorder NO FAULT Krystal Salazar INVESTIGATIVE ASSISTANT [facility] 09/05/2020 10:58AM 11:48AM Postconcussion Syndrome, Wayne tigo, Arthralgia - Shoulder Region Right, Muscle Spasm of Back, Bursitis Right Shoulder NO FAULT Krystal Salazar INVESTIGATIVE ASSISTANT [facility] 08/12/2020 9:59AM 11:10AM Postconcussion Syndrome NO FAULT Krystal Salazar INVESTIGATIVE ASSISTANT [facility] 07/15/2020 10:02AM 10:23AM Postconcussion Syndrome NO FAULT Krystal Salazar [facility] 06/14/2020 11:03AM 11:43AM Postconcussion Syndrome CLINICAL USE ONLY Catherine Pitts MD Family Medicine [facility], 05/25/2020 05/20/2020 11:53AM 05/20/2020 11:59PM NO FAULT Krystal Salazar INVESTIGATIVE ASSISTANT [facility] Medicine [facility] 05/20/2020 9:50AM 10:20AM Postconcussion Syndrome ANNUAL PHYSICAL EXAM Catherine Pitts MD Family Medicine [facility], 05/02/2020 10:16AM 11:09AM Arthralgia, Depressi on with Anxiety, Routine History & Physical Adult with Abnormal Findings, Tremor, Psoriasis NO FAULT Krystal Salazar INVESTIGATIVE ASSISTANT [facility] Medicine [facility] 04/20/2020 10:07AM 10:48AM Postconcussion Syndrome NO FAULT Krystal Salazar INVESTIGATIVE ASSISTANT [facility] 03/30/2020 8:01AM 8:27AM Postconcussion Syndrome NO FAULT Krystal Salazar INVESTIGATIVE ASSISTANT [facility] Medicine [facility] 03/02/2020 9:01AM 9:54AM Postconcussion Syndrome NO FAULT Krystal Salazar INVESTIGATIVE ASSISTANT [facility] 02/01/2020 10:52AM 11:46AM Concussion, Generalized Anxi ety Disorder, Arthralgia - Shoulder Region Right, Postconcussion Syndrome Insurance Includes: Active Insurance Policies Plan Name Member ID Group # Subscriber Relationship Effective [place] [id number] - [facility] [id number] Natasha last Advance Directives Includes: Current Advance DirectivesNo Advance Directives Recorded Health Concerns Includes: Active Health ConcernsNo Active Health Concerns Recorded Goals Includes: Active GoalsNo Active Goals Recorded Interventions Includes: Interventions for active GoalsNo Interventions Recorded Evaluations & Outcomes Includes: Evaluations & Outcomes for active GoalsNo Outcomes Recorded
--- OUTSIDE RECORDS SUMMARY | 2021-03-22 08:59 | CCD | Continuity of Care Document ---
Author Author Natasha FLORES MD Organization Unknown Address [address] [place] [address] , [facility] [address] [place] [address] Phone [phone] Care Team Providers Care Critical Care Nurse Specialist Name Role Phone Catherine Pitts M.D. AUTM [phone] AUTM Unavailable AUTM Unavailable Problems Active Problems [...] CPT Code Status Date Vaccine Lot # [id number] Given 03/11/2020 Afluria, Quadrivalent, 0.5ml , [facility]# [id number] Vital Signs Date Vital Result Comment 01/02/2021 10:16am Body Temperature 97.0 F 10/10/2020 10:52am BP Systolic 102 mmHg BP Diastolic 68 mmHg Heart Rate 68 /min O2 % BldC Oximetry 98 % Respiratory Rate 15 /min Body Temperature 96.6 F Height 67 inches 5'7" Weight 133.00 lb BMI (Body Mass Index) 20.8 kg/m2 Convoy Body Weight 135 lb Weight 60.329 kg BSA (Body Surface Area) 1.70 m2 Results Test Acquired Date Facility Test Result H/L Range Note Order [facility]02[facility]2021 [facility] [address] [place] [address] [phone] Elbow extension night time splint <pending> Procedures Date Code Description Status 01/02/2021 15025 Office/Outpatient Established Mo d MDM 30-39 Min Completed 01/02/202162274 Inject/Drain Arthrocentesis Veronika r Joint/Bursa/Ganglion Cyst Completed 11/21/2020 52817 Office/Outpatient Established Lo w MDM 20-29 Min Completed 10/10/2020 93474 Office/Outpatient New Moderate M DM 45-59 Minutes Completed 07/27/2020 86130 Office/Outpatient Established Lo w MDM 20-29 Min Completed Medical Devices Description No Information Available Encounters Type Date Location Provider Dx Diagnosis Office Visit 01/02/2021 10:15a [facility] Hesham Flores MD M75.41 Impingement syndrome of right shoulder G56.21 Lesion of ulnar nerve, right upper limb Office Visit 11/21/2020 11:30a [facility] Hesham Flores MD M75.41 Impingement syndrome of right shoulder Office Visit 10/10/2020 11:00a [facility] Hesham Flores MD M75.41 Impingement syndrome of right shoulder M25.511 Pain in right shoulder Office Visit 07/27/2020 1:00p [facility] [employer] [facility] F51.02 Adjustment insomnia [...] 10:45 am - Hesham Flores MD at [facility] 01/02/2021 - Hesham Flores MD* M75.41 Impingement syndrome of right shoulder * G56.21 Lesion of ulnar nerve, right upper limb Functional Status Functional Condition Comment Date Status Independent with all ADL's Activ e Independent with all IADL's Acti ve Mental Status Mental Condition Comment Date Status None Active Referrals Description No Information Available
--- OUTSIDE RECORDS SUMMARY | 2021-03-22 08:59 | CCD ---
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 Salazar DIRECTOR OF INTERCOLLEGIATE ATHLETICS on 03/29/[address] [place] [address], [id number] Collected: 03/29/2020 Reported: 03/29/2020 10:19 tel :[phone] Reported Physicians See Note None Note: Reported Physicians:Ordering: Jayy lam [id number]: Alfredo Salazar To: Alfredo Salazar To: Catherine Pitts Reviewed by Krystal Salazar DIRECTOR OF INTERCOLLEGIATE ATHLETICS on 04/01/2020; All test results are final unless otherwise noted. History of Present Illness History of Present Illness not supported for this document typeNo History of Present Illness Recorded Social History Description Last Updated Social history unchanged 02/22/2021 No caffeine use 05/20/2020 Not a current smoker 05/20/2020 Not using alcohol 05/20/2020 Not using drugs 05/20/2020 Poor exercise habits 05/20/2020 LIVES W/ PARENTS, SINGLE ~WORKS AT [employer] 40 HRS/WEEK. WORKED THERE SINCE MAR 2018 ~2-3 SEMESTERS AT [employer] 05/02/2020 No chocolate consumption 05/02/2020 No coffee consumption 05/02/2020 No tea consumption 05/02/2020 Activities of daily living 02/01/2020 Current every day smoker was five USED TO SMOKE CLOSE TO A PPD, NOW DOWN TO 5CPD 02/01/2020 No physical disability 02/01/2020 Self-reliant in usual daily activities 02/01/2020 Smoking Status Unknown Procedures and Surgical History Includes: Procedures from 02/23/2020 through 02/22/2021 Procedures Code Diagnosis Performing Provider Service Location Service Date MEDICAL RECORDS PREPARATION ($0.75 / PAGE+ postage) RECOR MEDICAL RECORD FEE Catherine Pitts MD Family Medicine [place], 12/06/2020 Medical History Includes: Medical History in [...] 1 04/27/2019 Complete (Refused - Patient objection) [facility] Allergies Includes: Active, inactive, and resolved AllergiesNo Known Allergies Encounters Includes: Encounters from 02/23/2020 through 02/22/2021 Encounter Provider Location Date Check-In Time Check-Out Time D iagnosis NO FAULT Krystal Salazar NP Family [facility] 02/22/2021 10:46AM 01/24/2021 11:59PM Muscle Spasm of Back, Common Migraine W/o Aura W/o Intractable Migraine W/o Status Migrainosus, Postconcussion Syndrome NO FAULT Krystal Salazar DIRECTOR OF INTERCOLLEGIATE ATHLETICS Family Medicine [facility] 01/24/2021 11:00AM 11:27AM Postconcussion Syndrome NO FAULT Krystal Salazar DIRECTOR OF INTERCOLLEGIATE ATHLETICS Family Medicine [facility] 12/28/2020 10:52AM 11:31AM Generalized Anxiety Disorder , Postconcussion Syndrome NO FAULT Krystal Salazar DIRECTOR OF INTERCOLLEGIATE ATHLETICS [facility] Medicine [facility] 11/29/2020 11:12AM 11:47AM Postconcussion Syndrome, Alexsander aracelis Headache NO FAULT Krystal Salazar DIRECTOR OF INTERCOLLEGIATE ATHLETICS [facility] Medicine [facility] 11/02/2020 10:57AM 11:19AM Postconcussion Syndrome NO FAULT Krystal Salazar DIRECTOR OF INTERCOLLEGIATE ATHLETICS [facility] Medicine [facility] 10/04/2020 1:00PM 1:44PM Arthralgia - Shoulder Region Right, Postconcussion Syndrome, Generalized Anxiety Disorder NO FAULT Krystal Salazar DIRECTOR OF INTERCOLLEGIATE ATHLETICS [facility] Medicine [facility] 09/05/2020 10:58AM 11:48AM Postconcussion Syndrome, Wayne tigo, Arthralgia - Shoulder Region Right, Muscle Spasm of Back, Bursitis Right Shoulder NO FAULT Krystal Salazar DIRECTOR OF INTERCOLLEGIATE ATHLETICS [facility] Medicine [facility] 08/12/2020 9:59AM 11:10AM Postconcussion Syndrome NO FAULT Krystal Salazar DIRECTOR OF INTERCOLLEGIATE ATHLETICS Family Medicine [facility] 07/15/2020 10:02AM 10:23AM Postconcussion Syndrome NO FAULT Krystal Salazar DIRECTOR OF INTERCOLLEGIATE ATHLETICS [facility] Medicine [facility] 06/14/2020 11:03AM 11:43AM Postconcussion Syndrome CLINICAL USE ONLY Catherine Pitts MD Family Medicine [facility] 05/25/2020 05/20/2020 11:53AM 05/20/2020 11:59PM NO FAULT Krystal Salazar DIRECTOR OF INTERCOLLEGIATE ATHLETICS [facility] Medicine [facility] 05/20/2020 9:50AM 10:20AM Postconcussion Syndrome ANNUAL PHYSICAL EXAM Catherine Pitts MD Family Medicine [facility] 05/02/2020 10:16AM 11:09AM Arthralgia, Depressi on with Anxiety, Routine History & Physical Adult with Abnormal Findings, Tremor, Psoriasis NO FAULT Krystal Sanchez Salazar DIRECTOR OF INTERCOLLEGIATE ATHLETICS [facility] 04/20/2020 10:07AM 10:48AM Postconcussion Syndrome NO FAULT [place] Sanchez Salazar DIRECTOR OF INTERCOLLEGIATE ATHLETICS [facility] 03/30/2020 8:01AM 8:27AM Postconcussion Syndrome NO FAULT Krystal Sanchez Salazar DIRECTOR OF INTERCOLLEGIATE ATHLETICS [facility] 03/02/2020 9:01AM 9:54AM Postconcussion Syndrome Insurance Includes: Active Insurance Policies Plan Name Member ID Group # Subscriber Relationship Effective Shawn fernandez - [facility] [id number] Natasha last Advance Directives Includes: Current Advance DirectivesNo Advance Directives Recorded Health Concerns Includes: Active Health ConcernsNo Active Health Concerns Recorded Goals Includes: Active GoalsNo Active Goals Recorded Interventions Includes: Interventions for active GoalsNo Interventions Recorded Evaluations & Outcomes Includes: Evaluations & Outcomes for active GoalsNo Outcomes Recorded
--- OUTSIDE RECORDS SUMMARY | 2021-03-22 08:59 | CCD | Continuity of Care Document ---
Author Author Natasha FLORES MD Organization Unknown Address [address] [place] [address] , [address] [address] Phone [phone] Care Team Providers Care Quality Rn Name Role Phone Catherine Pitts M.D. AUTM [phone] AUTM Unavailable AUTM Unavailable Problems Active Problems [...] CPT Code Status Date Vaccine Lot # [id number] Given 03/11/2020 [place], Quadrivalent Vital Signs Date Vital Result Comment 02/13/2021 10:54am Body Temperature 97.9 F 01/02/2021 10:16am Body Temperature 97.0 F Results Test Acquired Date Facility Test Result H/L Range Note Order 01/02/2021 [facility] [address] [place] [address] [phone] Elbow extension night time splint <pending> Procedures Date Code Description Status 02/13/2021 84749 Office/Outpatient Established Mo d MDM 30-39 Min Completed 01/02/2021 14481 Office/Outpatient Established Mo d MDM 30-39 Min Completed 01/02/202167308 Inject/Drain Arthrocentesis Veronika r Joint/Bursa/Ganglion Cyst Completed 11/21/2020 67009 Office/Outpatient Established Lo w MDM 20-29 Min Completed 10/10/2020 89439 Office/Outpatient New Moderate M DM 45-59 Minutes Completed Medical Devices Description No Information Available Encounters Type Date Location Provider Dx Diagnosis Office Visit 02/13/2021 10:45a [facility] Hesham Flores MD M75.41 Impingement syndrome of right shoulder G56.21 Lesion of ulnar nerve, right upper limb Office Visit 01/02/2021 10:15a [facility] Hesham Flores MD M75.41 Impingement syndrome of right shoulder G56.21 Lesion of ulnar nerve, right upper limb Office Visit 11/21/2020 11:30a [facility] Hesham Flores MD M75.41 Impingement syndrome of right shoulder Office Visit 10/10/2020 11:00a [facility] Hesham Flores MD M75.41 Impingement syndrome of right shoulder M25.511 Pain in right shoulder Assessments Date Code Description Provider 02/13/2021 M75.41 Impingement syndrome of right sh [...] shoulder Hesham murry MD Plan of Treatment Future Appointment(s):* 02/24/2021 2:30 pm - Hesham Flores MD at [facility] 02/13/2021 - Hesham Flores MD* M75.41 Impingement syndrome of right shoulder * G56.21 Lesion of ulnar nerve, right upper limb Functional Status Functional Condition Comment Date Status Independent with all ADL's Activ e Independent with all IADL's Acti ve Mental Status Mental Condition Comment Date Status None Active Referrals Description No Information Available
--- OUTSIDE RECORDS SUMMARY | 2021-03-22 08:59 | CCD | Continuity of Care Document ---
Author Author Natasha FLORES MD Organization Unknown Address [address] [place] [address] , [facility] [address] [place] [address] Phone [phone] Care Team Providers Care Indian Trader Name Role Phone Catherine Pitts M.D. AUTM [phone] AUTM Unavailable AUTM Unavailable Problems Active Problems [...] CPT Code Status Date Vaccine Lot # [id number] Given 03/11/2020 Afluria, Quadrivalent, 0.5ml , [facility]# [id number] Vital Signs Date Vital Result Comment 01/02/2021 10:16am Body Temperature 97.0 F 10/10/2020 10:52am BP Systolic 102 mmHg BP Diastolic 68 mmHg Heart Rate 68 /min O2 % BldC Oximetry 98 % Respiratory Rate 15 /min Body Temperature 96.6 F Height 67 inches 5'7" Weight 133.00 lb BMI (Body Mass Index) 20.8 kg/m2 [place] Body Weight 135 lb Weight 60.329 kg BSA (Body Surface Area) 1.70 m2 Results Test Acquired Date Facility Test Result H/L Range Note Order 01/02/2021 [facility] [address] [place] [address] [phone] Elbow extension night time splint <pending> Procedures Date Code Description Status 01/02/2021 39591 Office/Outpatient Established Mo d MDM 30-39 Min Completed 01/02/202103806 Inject/Drain Arthrocentesis Veronika r Joint/Bursa/Ganglion Cyst Completed 11/21/2020 84863 Office/Outpatient Established Lo w MDM 20-29 Min Completed 10/10/2020 96055 Office/Outpatient New Moderate M DM 45-59 Minutes Completed 07/27/2020 93752 Office/Outpatient Established Lo w MDM 20-29 Min Completed Medical Devices Description No Information Available Encounters Type Date Location Provider Dx Diagnosis Office Visit 01/02/2021 10:15a [facility] Hesham Flores MD M75.41 Impingement syndrome of right shoulder G56.21 Lesion of ulnar nerve, right upper limb Office Visit 11/21/2020 11:30a [facility] Hesham Flores MD M75.41 Impingement syndrome of right shoulder Office Visit 10/10/2020 11:00a [facility] Hesham Flores MD M75.41 Impingement syndrome of right shoulder M25.511 Pain in right shoulder Office Visit 07/27/2020 1:00p [facility] [employer] F51.02 Adjustment insomnia [...] 10:45 am - Hesham Flores MD at [facility] 01/02/2021 - Hesham Flores MD* M75.41 Impingement syndrome of right shoulder * G56.21 Lesion of ulnar nerve, right upper limb Functional Status Functional Condition Comment Date Status Independent with all ADL's Activ e Independent with all IADL's Acti ve Mental Status Mental Condition Comment Date Status None Active Referrals Description No Information Available
--- OUTSIDE RECORDS SUMMARY | 2021-03-22 08:59 | CCD | Continuity of Care Document ---
Author Author Natasha FLORES MD Organization Unknown Address [address] [place] [address] , [facility] [address] [place] [address] Phone [phone] Care Team Providers Care Maxillofacial Surgeon Name Role Phone Catherine Pitts M.D. AUTM [phone] AUTM Unavailable AUTM Unavailable Problems Active Problems [...] CPT Code Status Date Vaccine Lot # [id number] Given 03/11/2020 Afluria, Quadrivalent, 0.5ml , [facility]# [id number] Vital Signs Date Vital Result Comment 01/02/2021 10:16am Body Temperature 97.0 F 10/10/2020 10:52am BP Systolic 102 mmHg BP Diastolic 68 mmHg Heart Rate 68 /min O2 % BldC Oximetry 98 % Respiratory Rate 15 /min Body Temperature 96.6 F Height 67 inches 5'7" Weight 133.00 lb BMI (Body Mass Index) 20.8 kg/m2 [place] Body Weight 135 lb Weight 60.329 kg BSA (Body Surface Area) 1.70 m2 Results Test Acquired Date Facility Test Result H/L Range Note Order 01/02/2021 [facility] [address] [place] [address] [phone] Elbow extension night time splint <pending> Procedures Date Code Description Status 01/02/2021 92390 Office/Outpatient Established Mo d MDM 30-39 Min Completed 01/02/202159348 Inject/Drain Arthrocentesis Veronika r Joint/Bursa/Ganglion Cyst Completed 11/21/2020 05619 Office/Outpatient Established Lo w MDM 20-29 Min Completed 10/10/2020 15077 Office/Outpatient New Moderate M DM 45-59 Minutes Completed 07/27/2020 02828 Office/Outpatient Established Lo w MDM 20-29 Min Completed Medical Devices Description No Information Available Encounters Type Date Location Provider Dx Diagnosis Office Visit 01/02/2021 10:15a [facility] Hesham Flores MD M75.41 Impingement syndrome of right shoulder G56.21 Lesion of ulnar nerve, right upper limb Office Visit 11/21/2020 11:30a [facility] Hesham Flores MD M75.41 Impingement syndrome of right shoulder Office Visit 10/10/2020 11:00a [facility] Hesham Flores MD M75.41 Impingement syndrome of right shoulder M25.511 Pain in right shoulder Office Visit 07/27/2020 1:00p [facility] [employer] F51.02 Adjustment insomnia Assessments Date Code Description Provider 01/02/2021 M75.41 Impingement syndrome of right sh mónica Folres MD 01/02/2021 G56.21 Lesion of ulnar nerve, right upp er limb Hesham Flores MD 11/21/2020 M75.41 Impingement syndrome of right sh mónica Flores MD 10/10/2020 M75.41 Impingement syndrome of right sh mónica Flores MD 10/10/2020 M25.511 Pain in right shoulder Hesham murry MD 07/27/2020 F51.02 Adjustment insomnia [employer] [facility] Plan of Treatment Future Appointment(s):* 02/13/2021 10:45 am - Hesham Flores MD at [facility] 01/02/2021 - Hesham Flores MD* M75.41 Impingement syndrome of right shoulder * G56.21 Lesion of ulnar nerve, right upper limb Functional Status Functional Condition Comment Date Status Independent with all ADL's Activ e Independent with all IADL's Acti ve Mental Status Mental Condition Comment Date Status None Active Referrals Description No Information Available
--- OUTSIDE RECORDS SUMMARY | 2021-03-22 08:59 | CCD | Continuity of Care Document ---
Author Author Natasha FLORES MD Organization Unknown Address [address] [place] [address] , [facility] 2 [place] [address] Phone [phone] Care Team Providers Care Employee Relations Manager Name Role Phone Catherine Pitts M.D. AUTM [phone] AUTM Unavailable AUTM Unavailable Problems Active Problems [...] CPT Code Status Date Vaccine Lot # [id number] Given 03/11/2020 Afluria, Quadrivalent, 0.5ml , [facility]# [id number] Vital Signs Date Vital Result Comment 01/02/2021 10:16am Body Temperature 97.0 F 10/10/2020 10:52am BP Systolic 102 mmHg BP Diastolic 68 mmHg Heart Rate 68 /min O2 % BldC Oximetry 98 % Respiratory Rate 15 /min Body Temperature 96.6 F Height 67 inches 5'7" Weight 133.00 lb BMI (Body Mass Index) 20.8 kg/m2 [place] Body Weight 135 lb Weight 60.329 kg BSA (Body Surface Area) 1.70 m2 Results Test Acquired Date Facility Test Result H/L Range Note Order 01/02/2021 [facility] [address] [place] [address] [phone] Elbow extension night time splint <pending> Procedures Date Code Description Status 01/02/2021 56856 Office/Outpatient Established Mo d MDM 30-39 Min Completed 01/02/202148653 Inject/Drain Arthrocentesis Veronika r Joint/Bursa/Ganglion Cyst Completed 11/21/2020 30581 Office/Outpatient Established Lo w MDM 20-29 Min Completed 10/10/2020 68012 Office/Outpatient New Moderate M DM 45-59 Minutes Completed 07/27/2020 00380 Office/Outpatient Established Lo w MDM 20-29 Min Completed Medical Devices Description No Information Available Encounters Type Date Location Provider Dx Diagnosis Office Visit 01/02/2021 10:15a [facility] Hesham Flores MD M75.41 Impingement syndrome of right shoulder G56.21 Lesion of ulnar nerve, right upper limb Office Visit 11/21/2020 11:30a [facility] Hesham Flores MD M75.41 Impingement syndrome of right shoulder Office Visit 10/10/2020 11:00a [facility] Hesham Flores MD M75.41 Impingement syndrome of right shoulder M25.511 Pain in right shoulder Office Visit 07/27/2020 1:00p [facility] [employer] F51.02 Adjustment insomnia [...] 10:45 am - Hesham Flores MD at [facility] 01/02/2021 - Hesham Flores MD* M75.41 Impingement syndrome of right shoulder * G56.21 Lesion of ulnar nerve, right upper limb Functional Status Functional Condition Comment Date Status Independent with all ADL's Activ e Independent with all IADL's Acti ve Mental Status Mental Condition Comment Date Status None Active Referrals Description No Information Available
--- OUTSIDE RECORDS SUMMARY | 2021-03-22 08:59 | CCD | Continuity of Care Document ---
Author Author Natasha RAMOS I [place] [address] Phone [phone] Care Team Providers Care Research Environmental Scientist Name Role Phone Catherine Pitts Unavailable Problems Active Problems Provider Date Other specified problems related to primary support group Justen Hernandez HR SYSTEMS ANALYST Onset: 12/11/2019 Other reactions to severe stress [...] Available Procedures Date Code Description Status 11/28/2020 65376 Office/Outpatient Established Mo d MDM 30-39 Min Completed 10/28/2020 91560 Office/Outpatient Established Mo d MDM 30-39 Min Completed 09/13/2020 84590 Office/Outpatient Established Mo d MDM 30-39 Min Completed Medical Devices Description No Information Available Encounters Description No Information Available Assessments Date Code Description Provider 12/28/2020 F43.8 Other reactions to severe stress Lorri Lampack, [facility] 12/28/2020 F51.5 Nightmare disorder Lorri Lampa ck, [facility] 12/28/2020 G31.84 Mild cognitive impairment, so st ated Lorri Lampack, [facility] 12/06/2020 F43.8 Other reactions to severe stress Lorri Lampack, [facility] 12/06/2020 F51.5 Nightmare disorder Lorri Lampa ck, [facility] 12/06/2020 G31.84 Mild cognitive impairment, so st ated Lorri Lampack, [facility] 11/28/2020 F43.8 Other reactions to severe stress Jimbo Abrams PA-C 11/28/2020 F51.5 Nightmare disorder Jimbo Abrams , PA-C 11/18/2020 F43.8 Other reactions to severe stress Lorri Lampack, [facility] 11/18/2020 F51.5 Nightmare disorder Lorri Lampa ck, [facility] 11/18/2020 G31.84 Mild cognitive impairment, so st ated Lorri Lampack, [facility] 10/28/2020 F43.8 Other reactions to severe stress Jimbo Abrams PA-C 10/28/2020 F51.5 Nightmare disorder Jimbo Abrams , PA-C 10/18/2020 F43.8 Other reactions to severe stress Lorri Lampack, [facility] 10/18/2020 G31.84 Mild cognitive impairment, so st ated Lorri Lampack, [facility] 10/03/2020 F43.8 Other reactions to severe stress Lorri Lampack, [facility] 10/03/2020 G31.84 Mild cognitive impairment, so st ated Lorri Lampack, [facility] 09/20/2020 F43.8 Other reactions to severe stress Lorri Lampack, [facility] 09/20/2020 G31.84 Mild cognitive impairment, so st ated Lorri Lampack, [facility] 09/13/2020 F43.8 Other reactions to severe stress Jimbo Abrams PA-C 09/06/2020 F43.8 Other reactions to severe stress Lorri Lampack, [facility] 09/06/2020 G31.84 Mild cognitive impairment, so st ated Lorri Lampack, [facility] 08/19/2020 F43.8 Other reactions to severe stress Lorri Lampack, [facility] 08/19/2020 G31.84 Mild cognitive impairment, so st ated Lorri Lampack, [facility] 08/03/2020 F43.8 Other reactions to severe stress HENNY Ramos Plan of Treatment Future Appointment(s):* 02/16/2021 11:00 am - HENNY Ramos at [facility] * 02/27/2021 11:00 am - Jimbo Abrams PA-C at [facility] Functional Status Description No Information Available Mental Status Description No Information Available Referrals Description No Information Available
--- OUTSIDE RECORDS SUMMARY | 2021-03-22 08:59 | CCD | Continuity of Care Document ---
Author Author Natasha FLORES MD Organization Unknown Address [address] [place] [address] , [address] [address] Phone [phone] Care Team Providers Care Combine Inspector Name Role Phone Catherine Pitts M.D. AUTM [phone] AUTM Unavailable AUTM Unavailable Problems Active Problems [...] CPT Code Status Date Vaccine Lot # [id number] Given 03/11/2020 Afluria, Quadrivalent, 0.5ml , [facility]# [id number] Vital Signs Date Vital Result Comment 02/13/2021 10:54am Body Temperature 97.9 F 01/02/2021 10:16am Body Temperature 97.0 F Results Test Acquired Date Facility Test Result H/L Range Note Order 01/02/2021 [facility] [address] [place], [place] [address] [phone] Elbow extension night time splint <pending> Procedures Date Code Description Status 02/13/2021 31208 Office/Outpatient Established Mo d MDM 30-39 Min Completed 01/02/2021 45351 Office/Outpatient Established Mo d MDM 30-39 Min Completed 01/02/202128780 Inject/Drain Arthrocentesis Veronika r Joint/Bursa/Ganglion Cyst Completed 11/21/2020 23464 Office/Outpatient Established Lo w MDM 20-29 Min Completed 10/10/2020 84770 Office/Outpatient New Moderate M DM 45-59 Minutes Completed Medical Devices Description No Information Available Encounters Type Date Location Provider Dx Diagnosis Office Visit 02/13/2021 10:45a [facility] Hesham Flores MD M75.41 Impingement syndrome of right shoulder G56.21 Lesion of ulnar nerve, right upper limb Office Visit 01/02/2021 10:15a [facility] Hesham Flores MD M75.41 Impingement syndrome of right shoulder G56.21 Lesion of ulnar nerve, right upper limb Office Visit 11/21/2020 11:30a [facility] Hesham Flores MD M75.41 Impingement syndrome of right shoulder Office Visit 10/10/2020 11:00a [facility] Hesham Flores MD M75.41 Impingement syndrome [...] shoulder Hesham murry MD Plan of Treatment 02/13/2021 - Hesham Flores MD* M75.41 Impingement syndrome of right shoulder * G56.21 Lesion of ulnar nerve, right upper limb* New Xrays:* MRI Elbow W/O Contrast Right, Ordered: 02/13/21 Functional Status Functional Condition Comment Date Status Independent with all ADL's Activ e Independent with all IADL's Acti ve Mental Status Mental Condition Comment Date Status None Active Referrals Description No Information Available
--- OUTSIDE RECORDS SUMMARY | 2021-03-22 08:59 | CCD | Continuity of Care Document ---
Author Author Natasha FLORES MD Organization Unknown Address [id number] [place] [address] , [facility] [address] [place] [address] Phone [phone] Care Team Providers Care Pipefitter Welder Name Role Phone Catherine Pitts M.D. AUTM [phone] AUTM Unavailable AUTM Unavailable Problems Active Problems [...] CPT Code Status Date Vaccine Lot # [id number] Given 03/11/2020 Afluria, Quadrivalent, 0.5ml , [facility]# [id number] Vital Signs Date Vital Result Comment 01/02/2021 10:16am Body Temperature 97.0 F 10/10/2020 10:52am BP Systolic 102 mmHg BP Diastolic 68 mmHg Heart Rate 68 /min O2 % BldC Oximetry 98 % Respiratory Rate 15 /min Body Temperature 96.6 F Height 67 inches 5'7" Weight 133.00 lb BMI (Body Mass Index) 20.8 kg/m2 [place] Body Weight 135 lb Weight 60.329 kg BSA (Body Surface Area) 1.70 m2 Results Test Acquired Date Facility Test Result H/L Range Note [facility] [address] [place] [address] [phone] Elbow extension night time splint <pending> Procedures Date Code Description Status 01/02/2021 62964 Office/Outpatient Established Mo d MDM 30-39 Min Completed 01/02/202147428 Inject/Drain Arthrocentesis Veronika r Joint/Bursa/Ganglion Cyst Completed 11/21/2020 59026 Office/Outpatient Established Lo w MDM 20-29 Min Completed 10/10/2020 20703 Office/Outpatient New Moderate M DM 45-59 Minutes Completed 07/27/2020 49964 Office/Outpatient Established Lo w MDM 20-29 Min Completed Medical Devices Description No Information Available Encounters Type Date Location Provider Dx Diagnosis Office Visit 01/02/2021 10:15a [facility] Hesham Flores MD M75.41 Impingement syndrome of right shoulder G56.21 Lesion of ulnar nerve, right upper limb Office Visit 11/21/2020 11:30a [facility] Hesham Flores MD M75.41 Impingement syndrome of right shoulder Office Visit 10/10/2020 11:00a [facility] Hesham Flores MD M75.41 Impingement syndrome of right shoulder M25.511 Pain in right shoulder Office Visit 07/27/2020 1:00p [facility] F51.02 Adjustment insomnia [...] 10:45 am - Hesham Flores MD at [facility] 01/02/2021 - Hesham Flores MD* M75.41 Impingement syndrome of right shoulder * G56.21 Lesion of ulnar nerve, right upper limb Functional Status Functional Condition Comment Date Status Independent with all ADL's Activ e Independent with all IADL's Acti ve Mental Status Mental Condition Comment Date Status None Active Referrals Description No Information Available
--- OUTSIDE RECORDS SUMMARY | 2021-03-22 09:01 | CCD ---
Author Author [facility] Organization [facility] Address Unknown Phone Unavailable Care Team Providers Care Datapower Developer Name Role Phone NO, PCP Unavailable Unavailable Hong, Trisha Alexander MD Unavailable Unavailable Hong, Trisha Alexander MD Unavailable Unavailable Hong, Trisha Alexander MD Unavailable Unavailable Hong, Trisha Alexander MD Unavailable Unavailable Hong, Trisha Alexander MD Unavailable Unavailable Hong, Trisha Alexander MD Unavailable Unavailable Hong, Trisha Alexander MD Unavailable Unavailable Hong, Trisha Alexander MD Unavailable Unavailable Hong, Trisha Alexander MD Unavailable Unavailable Hong, Trisha Alexander MD Unavailable Unavailable Hong, Trisha Alexander MD Unavailable Unavailable Hong, Trisha Alexander MD Unavailable Unavailable Hong, Trisha Alexander MD Unavailable Unavailable Hong, Trisha Alexander MD Unavailable Unavailable Hong, Trisha Alexander MD Unavailable Unavailable Hong, Trisha Alexander MD Unavailable Unavailable Hong, Trisha Alexander MD Unavailable Unavailable Hong, Trisha Alexander MD Unavailable Unavailable Hong, Trisha Alexander MD Unavailable Unavailable Hong, Trisha Alexander MD Unavailable Unavailable Hong, Trisha Alexander MD Unavailable Unavailable Hong, Trisha Alexander MD Unavailable Unavailable Hong, Trisha Alexander MD Unavailable Unavailable Hong, Trisha Alexander MD Unavailable Unavailable Hong, Trisha Alexander MD Unavailable Unavailable Hong, Trisha Alexander MD Unavailable Unavailable Hong, Trisha Alexander MD Unavailable Unavailable Hong, Trisha Alexander MD Unavailable Unavailable Hong, Trisha Alexander MD Unavailable Unavailable Hong, Trisha Alexander MD Unavailable Unavailable Hong, Trisha Alexander MD Unavailable Unavailable Hong, Trisha Alexander MD Unavailable Unavailable Hong, Trisha Alexander MD Unavailable Unavailable Hong, Trisha Alexander MD Unavailable Unavailable Hong, Trisha Alexander MD Unavailable Unavailable Hong, Trisha Alexander MD Unavailable Unavailable Hong, Trisha Alexander MD Unavailable Unavailable Hong, Trisha Alexander MD Unavailable Unavailable Hong, Trisha Alexander MD Unavailable Unavailable Hong, Trisha Alexander MD Unavailable Unavailable Hong, Trisha Alexander MD Unavailable Unavailable Hong, Trisha Alexander MD Unavailable Unavailable Hong, Trisha Alexander MD Unavailable Unavailable Hong, Trisha Alexander MD Unavailable Unavailable Hong, Trisha Alexander MD Unavailable Unavailable Hong, Trisha Alexander MD Unavailable Unavailable Hong, Trisha Alexander MD Unavailable Unavailable Hong, Trisha Alexander MD Unavailable Unavailable Hong, Trisha Alexander MD Unavailable Unavailable Hong, Trisha Alexander MD Unavailable Unavailable Hong, Trisha Alexander MD Unavailable Unavailable Hong, Trisha Alexander MD Unavailable Unavailable Hong, Trisha Alexander MD Unavailable Unavailable Hong, Trisha Alexander MD Unavailable Unavailable Hong, Trisha Alexander MD Unavailable Unavailable Hogn, Trisha Alexander MD Unavailable Unavailable Hong, Trisha Alexander MD Unavailable Unavailable Hong, Trisha Alexander MD Unavailable Unavailable Hong, Trisha Alexander MD Unavailable Unavailable Hong, Trisha Alexander MD Unavailable Unavailable Hong, Trisha Alexander MD Unavailable Unavailable Hong, Trisha Alexander MD Unavailable Unavailable Hong, Trisha Alexander MD Unavailable Unavailable Hong, Trisha Alexander MD Unavailable Unavailable Hong, Trisha Alexander MD Unavailable Unavailable Hong, Trisha Alexander MD Unavailable Unavailable Hong, Trisha Alexander MD Unavailable Unavailable Hong, Trisha Alexander MD Unavailable Unavailable Hong, Trisha Alexander MD Unavailable Unavailable Hong, Trisha Alexander MD Unavailable Unavailable Hong, Trisha Alexander MD Unavailable Unavailable Hong, Trisha Alexander MD Unavailable Unavailable Hong, Trisha Alexander MD Unavailable Unavailable Hong, Trisha Alexander MD Unavailable Unavailable Hong, Trisha Alexander MD Unavailable Unavailable Hong, Trisha Mohamudyn MD Unavailable Unavailable Trisha Pitts MD Unavailable Unavailable Mollison, Audra Dahl MD Unavailable Unavailable Mollison, Audra Dahl MD Unavailable Unavailable Mollison, Audra Dahl MD Unavailable Unavailable Mollison, Audra Dahl MD Unavailable Unavailable Mollison, Audra Dahl MD Unavailable Unavailable Mollison, Audra Dahl MD Unavailable Unavailable Mollison, Audra Dahl MD Unavailable Unavailable Mollison, Audra Dahl MD Unavailable Unavailable Mollison, Audra Dahl MD Unavailable Unavailable Mollison, Audra Dahl MD Unavailable Unavailable Mollison, Audra Dahl MD Unavailable Unavailable Mollison, Audra Dahl MD Unavailable Unavailable Mollison, Audra Dahl MD Unavailable Unavailable Mollison, Audra Dahl MD Unavailable Unavailable Mollison, Audra Dahl MD Unavailable Unavailable Mollison, Audra Dahl MD Unavailable Unavailable Mollison, Audra Dahl MD Unavailable Unavailable Mollison, Audra Dahl MD Unavailable Unavailable Mollison, Audra Dahl MD Unavailable Unavailable Mollison, Audra Dahl MD Unavailable Unavailable Mollison, Audra Dahl MD Unavailable Unavailable Mollison, Audra Dahl MD Unavailable Unavailable Mollison, Audra Dahl MD Unavailable Unavailable Mollison, Audra Dahl MD Unavailable Unavailable Mollison, Audra Dahl MD Unavailable Unavailable Mollison, Audra Dahl MD Unavailable Unavailable Mollison, Audra Dahl MD Unavailable Unavailable Mollison, Audra Dahl MD Unavailable Unavailable Mollison, Audra Dahl MD Unavailable Unavailable Mollison, Audra Dahl MD Unavailable Unavailable GELLER, J VLADIMIR PA Unavailable Unavailable GELLER, J VLADIMIR PA Unavailable Unavailable GELLER, J VLADIMIR PA Unavailable Unavailable GELLER, J VLADIMIR PA Unavailable Unavailable GELLER, J VLADIMIR PA Unavailable Unavailable GELLER, J VLADIMIR PA Unavailable Unavailable GELLER, J VLADIMIR PA Unavailable Unavailable GELLER, J VLADIMIR PA Unavailable Unavailable GELLER, J VLADIMIR PA Unavailable Unavailable GELELR, J VLADIMIR PA Unavailable Unavailable GELLER, J VLADIMIR PA Unavailable Unavailable GELLER, J VLADIMIR PA Unavailable Unavailable GELLER, J VLADIMIR PA Unavailable Unavailable GELLER, J VLADIMIR PA Unavailable Unavailable GELLER, J VLADIMIR PA Unavailable Unavailable GELLER, J VLADIMIR PA Unavailable Unavailable GELLER, J VLADIMIR PA Unavailable Unavailable GELLER, J VLADIMIR PA Unavailable Unavailable GELLER, J VLADIMIR PA Unavailable Unavailable GELLER, J VLADIMIR PA Unavailable Unavailable GELLER, J VLADIMIR PA Unavailable Unavailable GELLER, J VLADIMIR PA Unavailable Unavailable GELLER, J VLADIMIR PA Unavailable Unavailable GELLER, J VLADIMIR PA Unavailable Unavailable GELLER, J VLADIMIR PA Unavailable Unavailable GELLER, J VLADIMIR PA Unavailable Unavailable GELLER, J VLADIMIR PA Unavailable Unavailable LAMPACK, ARMANI Unavailable Unavailable GELLER, J VLADIMIR PA Unavailable Unavailable GELLER, J VLADIMIR PA Unavailable Unavailable GELLER, J VLADIMIR PA Unavailable Unavailable GELLER, J VLADIMIR PA Unavailable Unavailable GELLER, J VLADIMIR PA Unavailable Unavailable GELLER, J VLADIMIR PA Unavailable Unavailable GELLER, J VLADIMIR PA Unavailable Unavailable GELLER, J VLADIMIR PA Unavailable Unavailable GELLER, J VLADIMIR PA Unavailable Unavailable GELLER, J VLADIMIR PA Unavailable Unavailable GELLER, J VLADIMIR PA Unavailable Unavailable GELLER, J VLADIMIR PA Unavailable Unavailable GELLER, J VLADIMIR PA Unavailable Unavailable GELLER, J VLADIMIR PA Unavailable Unavailable GELLER, J VLADIMIR PA Unavailable Unavailable GELLER, J VLADIMIR PA Unavailable Unavailable GELLER, J VLADIMIR PA Unavailable Unavailable GELLER, J VLADIMIR PA Unavailable Unavailable GELLER, J VLADIMIR PA Unavailable Unavailable GELLER, J VLADIMIR PA Unavailable Unavailable GELLER, J VLADIMIR PA Unavailable Unavailable GELLER, J VLADIMIR PA Unavailable Unavailable GELLER, J VLADIMIR PA Unavailable Unavailable GELLER, J VLADIMIR PA Unavailable Unavailable GELLER, J VLADIMIR PA Unavailable Unavailable GELLER, J VLADIMIR PA Unavailable Unavailable GELLER, J VLADIMIR PA Unavailable Unavailable Hesham Dunn MD Unavailable Unavailable Hesham uDnn MD Unavailable Unavailable Hesham Dunn MD Unavailable Unavailable Hesham Dunn MD Unavailable Unavailable Hesham Dunn MD Unavailable Unavailable Hesham Dunn MD Unavailable Unavailable Hesham Dunn MD Unavailable Unavailable Hesham Dunn MD Unavailable Unavailable Hesham Dunn MD Unavailable Unavailable Hesham Dunn MD Unavailable Unavailable Hesham Dunn MD Unavailable Unavailable Hesham Dunn MD Unavailable Unavailable Hesham Dunn MD Unavailable Unavailable Hesham Dunn MD Unavailable Unavailable Hesham Dunn MD Unavailable Unavailable Hesham Dunn MD Unavailable Unavailable Hesham Dunn MD Unavailable Unavailable Hesham Dunn MD Unavailable Unavailable Hesham Dunn MD Unavailable Unavailable Hesham Dunn MD Unavailable Unavailable Hesham Dunn MD Unavailable Unavailable Hesham Dunn MD Unavailable Unavailable Hesham Dunn MD Unavailable Unavailable Hesham Dunn MD Unavailable Unavailable Hesham Dunn MD Unavailable Unavailable Hesham Dunn MD Unavailable Unavailable Erik Guerra MD Unavailable Unavailable Erik Guerra MD Unavailable Unavailable Erik Guerra MD Unavailable Unavailable Mari O Doris MCCABE Unavailable Unavailable Mari O Doris MCCABE Unavailable Unavailable Erik Guerra MD Unavailable Unavailable Erik Guerra MD Unavailable Unavailable Erik Guerra MD Unavailable Unavailable Erik Guerra MD Unavailable Unavailable Erik Guerra MD Unavailable Unavailable Erik Guerra MD Unavailable Unavailable Erik Guerra MD Unavailable Unavailable Erik Guerra MD Unavailable Unavailable Erik Guerra MD Unavailable Unavailable Erik Guerra MD Unavailable Unavailable Erik Guerra MD Unavailable Unavailable Erik Guerra MD Unavailable Unavailable Erik Guerra MD Unavailable Unavailable Erik Guerra MD Unavailable Unavailable Erik Guerra MD Unavailable Unavailable Erik Guerra MD Unavailable Unavailable Erik Guerra MD Unavailable Unavailable Erik Guerra MD Unavailable Unavailable Erik Guerra MD Unavailable Unavailable Erik Guerra MD Unavailable Unavailable Erik Guerra MD Unavailable Unavailable Erik Guerra MD Unavailable Unavailable Erik Guerra MD Unavailable Unavailable Erik Guerra MD Unavailable Unavailable Erik Guerra MD Unavailable Unavailable Erik Guerra MD Unavailable Unavailable Erik Guerra MD Unavailable Unavailable Erik Guerra MD Unavailable Unavailable Erik Guerra MD Unavailable Unavailable Erik Guerra MD Unavailable Unavailable Erik Guerra MD Unavailable Unavailable Erik Guerra MD Unavailable Unavailable Erik Guerra MD Unavailable Unavailable Erik Guerra MD Unavailable Unavailable Erik Guerra MD Unavailable Unavailable Erik Guerra MD Unavailable Unavailable Erik Guerra MD Unavailable Unavailable Erik Guerra MD Unavailable Unavailable Erik Guerra MD Unavailable Unavailable Erik Guerra MD Unavailable Unavailable Erik Guerra MD Unavailable Unavailable Erik Guerra MD Unavailable Unavailable Erik Guerra MD Unavailable Unavailable Erik Guerra MD Unavailable Unavailable Erik Guerra MD Unavailable Unavailable Erik Guerra MD Unavailable Unavailable Erik Guerra MD Unavailable Unavailable Erik Guerra MD Unavailable Unavailable Erik Guerra MD Unavailable Unavailable Erik Guerra MD Unavailable Unavailable Erik Guerra MD Unavailable Unavailable Erik Guerra MD Unavailable Unavailable Erik Guerra MD Unavailable Unavailable Erik Guerra MD Unavailable Unavailable Erik Guerra MD Unavailable Unavailable Erik Guerra MD Unavailable Unavailable Erik Guerra MD Unavailable Unavailable Erik Guerra MD Unavailable Unavailable Erik Guerra MD Unavailable Unavailable Erik Guerra MD Unavailable Unavailable Erik Guerra MD Unavailable Unavailable Erik Guerra MD Unavailable Unavailable Erik Guerra MD Unavailable Unavailable Erik Guerra MD Unavailable Unavailable Erik Guerra MD Unavailable Unavailable Erik Guerra MD Unavailable Unavailable Erik Guerra MD Unavailable Unavailable Erik Guerra MD Unavailable Unavailable Erik Guerra MD Unavailable Unavailable Erik Guerra MD Unavailable Unavailable Erik Guerra MD Unavailable Unavailable Erik Guerra MD Unavailable Unavailable Erik Guerra MD Unavailable Unavailable Erik Guerra MD Unavailable Unavailable Martin, Mariae [place] HORTICULTURE SUPERINTENDENT Unavailable Unavailable Martin, Mariae [place] HORTICULTURE SUPERINTENDENT Unavailable Unavailable Martin, Mariae [place] HORTICULTURE SUPERINTENDENT Unavailable Unavailable Martin, Mariae [place] HORTICULTURE SUPERINTENDENT Unavailable Unavailable Martin, Mariae [place] HORTICULTURE SUPERINTENDENT Unavailable Unavailable [place], Mariae Krystal HORTICULTURE SUPERINTENDENT Unavailable Unavailable Martin, Mariae [place] HORTICULTURE SUPERINTENDENT Unavailable Unavailable [place], Mariae [place] HORTICULTURE SUPERINTENDENT Unavailable Unavailable [place], Mariae Krystal HORTICULTURE SUPERINTENDENT Unavailable Unavailable [place], Mariae [place] HORTICULTURE SUPERINTENDENT Unavailable Unavailable [place], Mariae [place] HORTICULTURE SUPERINTENDENT Unavailable Unavailable Martin, Mariae Krystal HORTICULTURE SUPERINTENDENT Unavailable Unavailable Martin, Mariae Krystal HORTICULTURE SUPERINTENDENT Unavailable Unavailable [place], Mariae [place] HORTICULTURE SUPERINTENDENT Unavailable Unavailable Martin, Mariae Krystal HORTICULTURE SUPERINTENDENT Unavailable Unavailable [place], Mariae Krystal HORTICULTURE SUPERINTENDENT Unavailable Unavailable Martin, Mariae [place] HORTICULTURE SUPERINTENDENT Unavailable Unavailable SHALOM, OSVALDO LOADING INSPECTOR Unavailable Unavailable SHALOM, OSVALDO LOADING INSPECTOR Unavailable Unavailable MORTON, M SADI PA Unavailable Unavailable MORTON, M SADI PA Unavailable Unavailable MORTON, M SADI PA Unavailable Unavailable MORTON, M SADI PA Unavailable Unavailable MORTON, M SADI PA Unavailable Unavailable MORTON, M SADI PA Unavailable Unavailable MORTON, M SADI PA Unavailable Unavailable MORTON, M SADI PA Unavailable Unavailable MORTON, M SADI PA Unavailable Unavailable MORTON, M SADI PA Unavailable Unavailable MORTON, M SADI PA Unavailable Unavailable MORTON, M SADI PA Unavailable Unavailable MORTON, M SADI PA Unavailable Unavailable MORTON, M SADI PA Unavailable Unavailable MORTON, M SADI PA Unavailable Unavailable MORTON, M SADI PA Unavailable Unavailable MORTON, M SADI PA Unavailable Unavailable MORTON, M SADI PA Unavailable Unavailable MORTON, M SADI PA Unavailable Unavailable MORTON, M SADI PA Unavailable Unavailable MORTON, M SADI PA Unavailable Unavailable MORTON, M SADI PA Unavailable Unavailable MORTON, M SADI PA Unavailable Unavailable MORTON, M SADI PA Unavailable Unavailable MORTON, M SADI PA Unavailable Unavailable MORTON, M SADI PA Unavailable Unavailable MORTON, M SADI PA Unavailable Unavailable MORTON, M SDAI PA Unavailable Unavailable MORTON, M SADI PA Unavailable Unavailable MORTON, M SADI PA Unavailable Unavailable MORTON, M SADI PA Unavailable Unavailable MORTON, M SADI PA Unavailable Unavailable MORTON, M SADI PA Unavailable Unavailable MORTON, M SADI PA Unavailable Unavailable MORTON, M SADI PA Unavailable Unavailable SEARS, A ZAHRAA DO Unavailable Unavailable SEARS, A ZAHRAA DO Unavailable Unavailable SEARS, A ZAHRAA DO Unavailable Unavailable SEARS, A ZAHRAA DO Unavailable Unavailable SEARS, A ZAHRAA DO Unavailable Unavailable SEARS, A ZAHRAA DO Unavailable Unavailable SEARS, A ZAHRAA DO Unavailable Unavailable SEARS, A ZAHRAA DO Unavailable Unavailable SEARS, A ZAHRAA DO Unavailable Unavailable SEARS, A ZAHRAA DO Unavailable Unavailable SEARS, A ZAHRAA DO Unavailable Unavailable SEARS, A ZAHRAA DO Unavailable Unavailable SEARS, A ZAHRAA DO Unavailable Unavailable SEARS, A ZAHRAA DO Unavailable Unavailable SEARS, A ZAHRAA DO Unavailable Unavailable SEARS, A ZAHRAA DO Unavailable Unavailable SEARS, A ZAHRAA DO Unavailable Unavailable SEARS, A ZAHRAA DO Unavailable Unavailable SEARS, A ZAHRAA DO Unavailable Unavailable SEARS, A ZAHRAA DO Unavailable Unavailable SEARS, A ZAHRAA DO Unavailable Unavailable SEARS, A ZAHRAA DO Unavailable Unavailable SEARS, A ZAHRAA DO Unavailable Unavailable SEARS, A ZAHRAA DO Unavailable Unavailable SEARS, A ZAHRAA DO Unavailable Unavailable SEARS, A ZAHRAA DO Unavailable Unavailable SEARS, A ZAHRAA DO Unavailable Unavailable SEARS, A ZAHRAA DO Unavailable Unavailable SEARS, A ZAHRAA DO Unavailable Unavailable SEARS, A ZAHRAA DO Unavailable Unavailable SEARS, A ZAHRAA DO Unavailable Unavailable SEARS, A ZAHRAA DO Unavailable Unavailable SEARS, A ZAHRAA DO Unavailable Unavailable SEARS, A ZAHRAA DO Unavailable Unavailable SEARS, A ZAHRAA DO Unavailable Unavailable SEARS, A ZAHRAA DO Unavailable Unavailable SEARS, A ZAHRAA DO Unavailable Unavailable SEARS, A ZAHRAA DO Unavailable Unavailable SEARS, A ZAHRAA DO Unavailable Unavailable SEARS, A ZAHRAA DO Unavailable Unavailable SEARS, A ZAHRAA DO Unavailable Unavailable SEARS, A ZAHRAA DO Unavailable Unavailable SEARS, A ZAHRAA DO Unavailable Unavailable SEARS, A ZAHRAA DO Unavailable Unavailable SEARS, A ZAHRAA DO Unavailable Unavailable SEARS, A ZAHRAA DO Unavailable Unavailable SEARS, A ZAHRAA DO Unavailable Unavailable SEARS, A ZAHRAA DO Unavailable Unavailable Fish, Sowmya Borges MD Unavailable Unavailable Fish, Sowmya Borges MD Unavailable Unavailable Fish, Sowmya Borges MD Unavailable Unavailable Fish, Sowmya Borges MD Unavailable Unavailable Fish, Sowmya Borges MD Unavailable Unavailable Fish, Sowmya Borges MD Unavailable Unavailable Fish, Sowmya Borges MD Unavailable Unavailable Fish, Sowmya Borges MD Unavailable Unavailable Fish, Sowmya Borges MD Unavailable Unavailable Fish, Sowmya Borges MD Unavailable Unavailable Fish, Sowmya Borges MD Unavailable Unavailable Fish, Sowmya Borges MD Unavailable Unavailable Fish, Sowmya Borges MD Unavailable Unavailable Fish, Sowmya Borges MD Unavailable Unavailable Fish, Sowmya Borges MD Unavailable Unavailable Fish, Sowmya Borges MD Unavailable Unavailable Fish, Sowmya Borges MD Unavailable Unavailable Fish, Sowmya Borges MD Unavailable Unavailable Fish, Sowmya Borges MD Unavailable Unavailable Fish, Sowmya Borges MD Unavailable Unavailable Fish, B Katerina MCCABE Unavailable Unavailable Fish, B Katerina MCCABE Unavailable Unavailable Fish, B Katerina MCCABE Unavailable Unavailable Fish, B Katerina MCCABE Unavailable Unavailable Fish, B Katerina MCCABE Unavailable Unavailable Fish, B Katerina MCCABE Unavailable Unavailable Fish, B Katerina MCCABE Unavailable Unavailable Fish, B Katerina MD Unavailable Unavailable Fish, B Katerina MD Unavailable Unavailable Fish, B Katerina MD Unavailable Unavailable Fish, B Katerina MD Unavailable Unavailable Fish, B Katerina MD Unavailable Unavailable Fish, B Katerina MCCABE Unavailable Unavailable Fish, B Katerina MD Unavailable Unavailable Fish, B Katerina MCCABE Unavailable Unavailable Fish, B Katerina MD Unavailable Unavailable Fish, B Katerina MD Unavailable Unavailable Fish, B Katerina MD Unavailable Unavailable Fish, B Katerina MD Unavailable Unavailable Fish, B Katerina MCCABE Unavailable Unavailable Fish, B Katerina MCCABE Unavailable Unavailable Fish, B Katerina MCCABE Unavailable Unavailable Fish, B Katerina MCCABE Unavailable Unavailable Fish, B Katerina MD Unavailable Unavailable Fish, B Katerina MD Unavailable Unavailable Fish, B Katerina MD Unavailable Unavailable Fish, B Katerina MCCABE Unavailable Unavailable Fish, B Katerina MCCABE Unavailable Unavailable Fish, B Katerina MCCABE Unavailable Unavailable Fish, B Katerina MCCABE Unavailable Unavailable Fish, B Katerina MCCABE Unavailable Unavailable Fish, B Katerina MCCABE Unavailable Unavailable Fish, B Katerina MCCABE Unavailable Unavailable Fish, B Katerina MCCABE Unavailable Unavailable Fish, B Katerina MCCABE Unavailable Unavailable Fish, B Katerina MCCABE Unavailable Unavailable Fish, B Katerina MCCABE Unavailable Unavailable Fish, B Katerina MCCABE Unavailable Unavailable Fish, B Katerina MD Unavailable Unavailable Fish, B Katerina MD Unavailable Unavailable Fish, B Katerina MD Unavailable Unavailable Fish, B Katerina MD Unavailable Unavailable Fish, B Katerina MCCABE Unavailable Unavailable Fish, B Katerina MD Unavailable Unavailable Fish, B Katerina MD Unavailable Unavailable Re-disclosure Warning The records that you are about to access may contain information from federally-assisted alcohol or drug abuse programs. If such information is present, then the following federally mandated warning applies: This information has been disclosed to you from records protected by federal confidentiality rules (42 CFR part 2). The federal rules prohibit you from making any further disclosure of this information unless further disclosure is expressly permitted by the written consent of the person to whom it pertains or as otherwise permitted by 42 CFR part 2. A general authorization for the release of medical or other information is NOT sufficient for this purpose. The Federal rules restrict any use of the information to criminally investigate or prosecute any alcohol or drug abuse patient.The records that you are about to access may contain highly sensitive health information, the redisclosure of which is protected by Article 27-F of the [facility] Public [facility] law. If you continue you may have access to information: Regarding HIV / AIDS; Provided by facilities licensed or operated by the [facility] Office of Mental Health; or Provided by the [facility] Office for People With Developmental Disabilities. If such information is present, then the following [facility] mandated warning applies: This information has been disclosed to you from confidential records which are protected by state law. State law prohibits you from making any further disclosure of this information without the specific written consent of the person to whom it pertains, or as otherwise permitted by law. Any unauthorized further disclosure in violation of state law may result in a fine or mcfp sentence or both. A general authorization for the release of medical or other information is NOT sufficient authorization for further disc losure. Encounters Encounter Providers Location Date Indications Data Source(s ) Outpatient Attender: ARMANI Sen: PCP NO 03/16/2021 10:57:00 AM EDT - 03/16/2021 10:57:00 AM EDT [facility] Outpatient<td ID="encounterTypeDescripti onID0">STANDARD OV</td><td>Krystal Salazar NP</td><td>[facility],</td><td>03/02/2021</td><td>11:28AM</td><td>11:47AM</td><td><content ID="encounterDiagnosisID0-0">Muscle Spasm of Back</content></td> Attender: Krystal Salazar NP [facility], 03/02/2021 11:28:00 AM EDT - 03/02/2021 11:47:00 AM EDT Muscle Spasm of Back MOE ([facility]) Muscle Spasm of Back Outpatient Attender: ARMANI Sen: PCP NO 03/02/2021 09:01:00 AM EDT - 03/02/2021 09:01:00 AM EDT [facility] Outpatient Attender: VLADIMIR GELLER PAConsultant: PCP NO 02/27/2021 11:02:00 AM EDT - 02/27/2021 11:02:00 AM EDT [facility] Outpatient Attender: [facility]IR [facility] 02/27 11:00:00 AM EDT [facility] ([facility]) Outpatient Attender: Hesham Cortes/Christian/Esteban/Vidya indl 02/24/2021 02:30:00 PM EDT [facility] ([facility], ) Outpatient Attender: Doris Guerra MD Main office - [facility] 02/24/2021 11:00:00 AM EDT [facility] ([facility], ) <td ID="encounterTypeDescriptionID1">NO FAULT</td><td>Krystal Salazar NP</td><td>[facility]</td><td>02/22/2021</td><td>10:46AM</td><td>11:19AM</td><td><content ID="encounterDiagnosisID1-0">Muscle Spasm of Back</content>, <content ID="encounterDiagnosisID1-1">Common Migraine W/o Aura W/o Intractable Migraine W/o Status Migrainosus</content>, <content ID="encounterDiagnosisID1- 2">Postconcussion Syndrome</content></td>Outpatient Attender: Krystal Salazar NP [facility] 02/22/2021 10:46:00 AM EDT - 02/22/2021 11:19:00 AM EDT Common Migraine W/o Aura W/o Intractable Migraine W/o Status MigrainosusMuscle Spasm of BackCommon Migraine W/o Aura W/o Intractable Migraine W/o Status MigrainosusMuscle Spasm of BackPostconcussion SyndromePostconcussion Syndrome [facility] ([facility]) Common Migraine W/o Aura W/o Intractable Migraine W/o Status Migrainosus Muscle Spasm of Back Common Migraine W/o Aura W/o Intractable Migraine W/o Status Migrainosus Muscle Spasm of Back Postconcussion Syndrome Postconcussion Syndrome Outpatient Attender: ARMANI Maganasultant: PCP NO 02/16/2021 11:00:00 AM EDT - 02/16/2021 11:00:00 AM EDT [facility] Outpatient Attender: Hesham Cortes/Christian/Esteban/Re indl 02/13/2021 10:45:00 AM EDT [facility] ([facility], ) Outpatient Attender: ARMANI Mattltant: PCP NO 01/25/2021 08:55:00 AM EDT - 01/25/2021 08:55:00 AM EDT [facility] Outpatient<td ID="encounterTypeDescripti onID2">NO FAULT</td><td>Krystal Salazar NP</td><td>[facility]</td><td>01/24/2021</td><td>11:00AM</td><td>11:27AM</td><td><content ID="encounterDiagnosisID2-0">Postconcussion Syndrome</content></td> Attender: Krystal Salazar NP [facility] 01/24/2021 11:00:00 AM EDT - 01/24/2021 11:27:00 AM EDT Postconcussion SyndromePostconcussion SyndromePostconcussion Syndrome SODDY DAISY ([facility]) Postconcussion Syndrome Postconcussion Syndrome Postconcussion Syndrome Outpatient Attender: Hesham Cortes/Christian/Esteban/Re indl 01/02/2021 10:15:00 AM EDT [facility] ([facility], ) Outpatient Attender: ARMANI Rodríguezant: PCP NO 12/28/2020 03:57:00 PM EDT - 12/28/2020 03:57:00 PM EDT [facility] <td ID="encounterTypeDescriptionID3">NO FAULT</td><td>Krystal Salazar NP</td><td>[facility]</td><td>12/28/2020</td><td>10:52AM</td><td>11:31AM</td><td><content ID="encounterDiagnosisID3-0">Generalized Anxiety Disorder</content>, <content ID="encounterDiagnosisID3-1">Postconcussion Syndrome</content></td>Outpatient Attender: Krystal Salazar NP [facility] 12/28/2020 10:52:00 AM EDT - 12/28/2020 11:31:00 AM EDT Postconcussion SyndromeGeneralized Anxie ty DisorderPostconcussion SyndromeGeneralized Anxiety DisorderPostconcussion SyndromeGeneralized Anxiety DisorderPostconcussion SyndromeGeneralized Anxiety Disorder SODDY DAISY ([facility]) Postconcussion Syndrome Generalized Anxiety Disorder Postconcussion Syndrome Generalized Anxiety Disorder Postconcussion Syndrome Generalized Anxiety Disorder Postconcussion Syndrome Generalized Anxiety Disorder Outpatient Attender: ARMANI ANDERSONConsultant: YOUNG FIORE 12/06/2020 10:58:00 AM EDT - 12/06/2020 10:58:00 AM EDT [facility] <td ID="encounterTypeDescriptionID4">NO FAULT</td><td>Krystal Salazar NP</td><td>[facility]</td><td>11/29/2020</td><td>11:12AM</td><td>11:47AM</td><td><content ID="encounterDiagnosisID4-0">Postconcussion Syndrome</content>, <content ID="encounterDiagnosisID4-1">Migraine Headache</content></td>Outpatient Attender: Krystal Salazar NP [facility] 11/29/2020 11:12:00 AM EDT - 11/29/2020 11:47:00 AM EDT Migraine HeadacheMigraine HeadacheMigrai ne HeadacheMigraine HeadacheMigraine HeadachePostconcussion SyndromePostconcussion SyndromePostconcussion SyndromePostconcussion SyndromePostconcussion Syndrome [facility] ([facility]) Migraine Headache Migraine Headache Migraine Headache Migraine Headache Migraine Headache Postconcussion Syndrome Postconcussion Syndrome Postconcussion Syndrome Postconcussion Syndrome Postconcussion Syndrome Outpatient Attender: VLADIMIR GELLER PAConsultant: PCP NO 11/28/2020 10:44:00 AM EDT - 11/28/2020 10:44:00 AM EDT [facility] Outpatient Attender: VLADIMIR [facility] 11/28 10:40:00 AM EDT [facility] ([facility]) Outpatient Attender: Hesham Cortes/Christian/Esteban/Re indl 11/21/2020 11:30:00 AM EDT [facility] ([facility], ) Outpatient Attender: ARMANI ANDERSONConsultant: PCP NO 11/18/2020 11:04:00 AM EDT - 11/18/2020 11:04:00 AM EDT [facility] Outpatient Attender: Doris Guerra MD [facility] office [facility] 11/10/2020 11:45:00 AM EDT [facility] ([facility]) <td ID="encounterTypeDescriptionID5">NO FAULT</td><td>Wilson Creekdeacon Salazar NP</td><td>[facility]</td><td>11/02/2020</td><td>10:57AM</td><td>11:19AM</td><td><content ID="encounterDiagnosisID5-0">Postconcussion Syndrome</content></td>Outpatient Attender: Krystal Salazar NP [facility] 11/02/2020 10:57:00 AM EDT - 11/02/2020 11:19:00 AM EDT Postconcussion SyndromePostconcussion SyndromePostconcussion SyndromePostconcussion SyndromePostconcussion SyndromePostconcussion Syndrome [facility] ([facility]) Postconcussion Syndrome Postconcussion Syndrome Postconcussion Syndrome Postconcussion Syndrome Postconcussion Syndrome Postconcussion Syndrome Outpatient Attender: VLADIMIR GELLER PAConsultant: PCP NO 10/28/2020 11:01:00 AM EDT - 10/28/2020 11:01:00 AM EDT [facility] Outpatient Attender: VLADIMIR [facility]JED[facility] 10/28 11:00:00 AM EDT [facility] ([facility] Outpatient Attender: ARMANI ANDERSONConsultant: PCP NO 10/18/2020 10:59:00 AM EDT - 10/18/2020 10:59:00 AM EDT [facility] Outpatient Attender: Hesham Cortes/Christian/Esteban/Vidya pastrana 10/10/2020 11:00:00 AM EDT [facility] ([facility], ) <td ID="encounterTypeDescriptionID6">NO FAULT</td><td>Krystal Salazar NP</td><td>[facility]</td><td>10/04/2020</td><td>1:00PM</td><td>1:44PM</td><td><content ID="encounterDiagnosisID6-0">Arthralgia - Shoulder Region Right</content>, <content ID="encounterDiagnosisID6-1">Postconcussion Syndrome</content>, <content ID="encounterDiagnosisID6-2">Generalized Anxiety Disorder</content></td>Outpatient Attender: Krystal Salazar NP [facility] 10/04/2020 01:00:00 PM EDT - 10/04/2020 01:44:00 PM ED T Generalized Anxiety DisorderPostconcussion SyndromeArthralgia - Shoulder Region RightGeneralized Anxiety DisorderPostconcussion SyndromeArthralgia - Shoulder Region RightGeneralized Anxiety DisorderPostconcussion SyndromeArthralgia - Shoulder Region RightGeneralized Anxiety DisorderPostconcussion SyndromeArthralgia - Shoulder Region RightGeneralized Anxiety DisorderPostconcussion SyndromeArthralgia - Shoulder Region RightGeneralized Anxiety DisorderPostconcussion SyndromeArthralgia - Shoulder Region RightGeneralized Anxiety DisorderPostconcussion SyndromeArthralgia - Shoulder Region Right [facility] ([facility]) Generalized Anxiety Disorder Postconcussion Syndrome Arthralgia - Shoulder Region Right Generalized Anxiety Disorder Postconcussion Syndrome Arthralgia - Shoulder Region Right Generalized Anxiety Disorder Postconcussion Syndrome Arthralgia - Shoulder Region Right Generalized Anxiety Disorder Postconcussion Syndrome Arthralgia - Shoulder Region Right Generalized Anxiety Disorder Postconcussion Syndrome Arthralgia - Shoulder Region Right Generalized Anxiety Disorder Postconcussion Syndrome Arthralgia - Shoulder Region Right Generalized Anxiety Disorder Postconcussion Syndrome Arthralgia - Shoulder Region Right Outpatient Attender: ARMANI Mattltant: PCP NO 10/03/2020 01:02:00 PM EDT - 10/03/2020 01:02:00 PM EDT [facility] Outpatient Attender: ARMANI Rodríguezant: PCP NO 09/20/2020 09:58:00 AM EDT - 09/20/2020 09:58:00 AM EDT [facility] Outpatient Attender: VLADIMIR [facility] 09/13 09:00:00 AM EDT [facility] Out[facility] Attender: VLADIMIR GELLER PAConsultant: PCP NO 09/13/2020 08:59:00 AM EDT - 09/13/2020 08:59:00 AM EDT [facility] Outpatient Attender: ARMANI Mattltant: PCP NO 09/06/2020 09:55:00 AM EDT - 09/06/2020 09:55:00 AM EDT [facility] Outpatient<td ID="encounterTypeDescripti onID7">NO FAULT</td><td>Krystal Salazar HORTICULTURE SUPERINTENDENT</td><td>[facility]</td><td>09/05/2020</td><td>10:58AM</td><td>11:48AM</td><td><content ID="encounterDiagnosisID7-0">Postconcussion Syndrome</content>, <content ID="encounterDiagnosisID7-1">Vertigo</content>, <content ID="encounterDiagnosisID7-2">Arthralgia - Shoulder Region Right</content>, <content ID="encounterDiagnosisID7-3">Muscle Spasm of Back</content>, <content ID="encounterDiagnosisID7-4">Bursitis Right Shoulder</content></td> Attender: Krystal Salazar NP [facility] 09/05/2020 10:58:00 AM EDT - 09/05/2020 11:48:00 AM EDT Bursitis Right ShoulderMuscle Spasm of BackVertigoBursitis Right ShoulderMuscle Spasm of BackVertigoBursitis Right ShoulderMuscle Spasm of BackVertigoBursitis Right ShoulderMuscle Spasm of BackVertigoBursitis Right ShoulderMuscle Spasm of BackVertigoBursitis Right ShoulderMuscle Spasm of BackVertigoBursitis Right ShoulderMuscle Spasm of BackVertigoBursitis Right ShoulderMuscle Spasm of BackVertigoArthralgia - Shoulder Region RightPostconcussion SyndromeArthralgia - Shoulder Region RightPostconcussion SyndromeArthralgia - Shoulder Region RightPostconcussion SyndromeArthralgia - Shoulder Region RightPostconcussion SyndromeArthralgia - Shoulder Region RightPostconcussion SyndromeArthralgia - Shoulder Region RightPostconcussion SyndromeArthralgia - Shoulder Region RightPostconcussion SyndromeArthralgia - Shoulder Region RightPostconcussion Syndrome MOE ([facility]) Bursitis Right Shoulder Muscle Spasm of Back Vertigo Bursitis Right Shoulder Muscle Spasm of Back Vertigo Bursitis Right Shoulder Muscle Spasm of Back Vertigo Bursitis Right Shoulder Muscle Spasm of Back Vertigo Bursitis Right Shoulder Muscle Spasm of Back Vertigo Bursitis Right Shoulder Muscle Spasm of Back Vertigo Bursitis Right Shoulder Muscle Spasm of Back Vertigo Bursitis Right Shoulder Muscle Spasm of Back Vertigo Arthralgia - Shoulder Region Right Postconcussion Syndrome Arthralgia - Shoulder Region Right Postconcussion Syndrome Arthralgia - Shoulder Region Right Postconcussion Syndrome Arthralgia - Shoulder Region Right Postconcussion Syndrome Arthralgia - Shoulder Region Right Postconcussion Syndrome Arthralgia - Shoulder Region Right Postconcussion Syndrome Arthralgia - Shoulder Region Right Postconcussion Syndrome Arthralgia - Shoulder Region Right Postconcussion Syndrome Outpatient Attender: ARMANI Rodríguezant: PCP NO 08/19/2020 11:03:00 AM EDT - 08/19/2020 11:03:00 AM EDT [facility] <td ID="encounterTypeDescriptionID8">NO FAULT</td><td>Krystal Salazar NP</td><td>[facility]</td><td>08/12/2020</td><td>9:59AM</td><td>11:10AM</td><td><content ID="encounterDiagnosisID8-0">Postconcussion Syndrome</content></td>Outpatient Attender: Krystal Salazar NP [facility], 08/12/2020 09:59:00 AM EST - 08/12/2020 11:10:00 AM EST Postconcussion SyndromePostconcussion SyndromePostconcussion SyndromePostconcussion SyndromePostconcussion SyndromePostconcussion SyndromePostconcussion SyndromePostconcussion SyndromePostconcussion Syndrome SOD[place] DAISY ([facility]) Postconcussion Syndrome Postconcussion Syndrome Postconcussion Syndrome Postconcussion Syndrome Postconcussion Syndrome Postconcussion Syndrome Postconcussion Syndrome Postconcussion Syndrome Postconcussion Syndrome Outpatient Attender: ARMANI Rodríguezant: PCP NO 08/03/2020 10:03:00 AM EST - 08/03/2020 10:03:00 AM EST [facility] Outpatient Attender: ZAHRAA Lindo/Christian/Esteban/Reindl 07/27/2020 12:00:00 PM EST [facility] ([facility]) Outpatient Attender: ARMANI Mattltant: PCP NO 07/20/2020 10:15:00 AM EST - 07/20/2020 10:15:00 AM EST [facility] Outpatient<td ID="encounterTypeDescripti onID9">NO FAULT</td><td>Krystal Bradford Martin HORTICULTURE SUPERINTENDENT</td><td>[facility]</td><td>07/15/2020</td><td>10:02AM</td><td>10:23AM</td><td><content ID="encounterDiagnosisID9-0">Postconcussion Syndrome</content></td> Attender: Krystal Salazar NP [facility] 07/15/2020 10:02:00 AM EST - 07/15/2020 10:23:00 AM EST Postconcussion SyndromePostconcussion SyndromePostconcussion SyndromePostconcussion SyndromePostconcussion SyndromePostconcussion SyndromePostconcussion SyndromePostconcussion SyndromePostconcussion SyndromePostconcussion Syndrome SOD[place] DAISY ([facility]) Postconcussion Syndrome Postconcussion Syndrome Postconcussion Syndrome Postconcussion Syndrome Postconcussion Syndrome Postconcussion Syndrome Postconcussion Syndrome Postconcussion Syndrome Postconcussion Syndrome Postconcussion Syndrome Outpatient Attender: ARMANI Maganasultant: PCP NO 07/06/2020 10:07:00 AM EST - 07/06/2020 10:07:00 AM EST [facility] Outpatient Attender: Doris Guerra MD Main office - [facility] 06/21/2020 11:00:00 AM EST [facility] ([facility]) Outpatient Attender: VLADIMIR GELLER PAConsultant: PCP NO 06/17/2020 08:43:00 AM EST - 06/17/2020 08:43:00 AM EST [facility] Outpatient Attender: VLADIMIR [facility]JEDA [facility] 06/17 07:40:00 AM EST [facility] ([facility]) Outpatient<td ID="encounterTypeDescripti onID10">NO FAULT</td><td>Krystal Salazar NP</td><td>[facility]</td><td>06/14/2020</td><td>11:03AM</td><td>11:43AM</td><td><content ID="[id number]">Postconcussion Syndrome</content></td> Attender: Krystal Salazar NP [facility] 06/14/2020 11:03:00 AM EST - 06/14/2020 11:43:00 AM EST Postconcussion SyndromePostconcussion SyndromePostconcussion SyndromePostconcussion SyndromePostconcussion SyndromePostconcussion SyndromePostconcussion SyndromePostconcussion SyndromePostconcussion SyndromePostconcussion Syndrome SODDY DAISY ([facility]) Postconcussion Syndrome Postconcussion Syndrome Postconcussion Syndrome Postconcussion Syndrome Postconcussion Syndrome Postconcussion Syndrome Postconcussion Syndrome Postconcussion Syndrome Postconcussion Syndrome Postconcussion Syndrome Outpatient Attender: SADI Cortes/Christian/Esteban/Ky dl 05/23/2020 12:30:00 PM EST [facility] ([facility], ) Outpatient<td ID="encounterTypeDescripti onID11">CLINICAL USE ONLY</td><td>Catherine Pitts MD</td><td>[facility]</td><td>05/25/2020</td><td>05/20/2020 11:53AM</td><td>05/20/2020 11:59PM</td><td></td> Attender: Catherine Pitts MD [facility], 05/20/2020 11:53:00 AM EST - 05/20/2020 11:59:00 PM EST [facility] ([facility]) Outpatient<td ID="encounterTypeDescripti onID12">NO FAULT</td><td>Krystal Salazar HORTICULTURE SUPERINTENDENT</td><td>[facility]</td><td>05/20/2020</td><td>9:50AM</td><td>10:20AM</td><td><content ID="cviznlubkHjmfksplyUI92-6">Postconcussion Syndrome</content></td> Attender: Krystal Salazar NP [facility], 05/20/2020 09:50:00 AM EST - 05/20/2020 10:20:00 AM EST Postconcussion SyndromePostconcussion SyndromePostconcussion SyndromePostconcussion SyndromePostconcussion SyndromePostconcussion SyndromePostconcussion SyndromePostconcussion SyndromePostconcussion SyndromePostconcussion SyndromePostconcussion Syndrome SOD[place] DAISY ([facility]) Postconcussion Syndrome Postconcussion Syndrome Postconcussion Syndrome Postconcussion Syndrome Postconcussion Syndrome Postconcussion Syndrome Postconcussion Syndrome Postconcussion Syndrome Postconcussion Syndrome Postconcussion Syndrome Postconcussion Syndrome Outpatient Attender: ARMANI ANDERSONConsultant: PCP NO 05/19/2020 10:55:00 AM EST - 05/19/2020 10:55:00 AM EST [facility] Outpatient Attender: VLADIMIR GELLER PAConsultant: PCP NO 05/10/2020 10:21:00 AM EST - 05/10/2020 10:21:00 AM EST [facility] Outpatient Attender: VLADIMIR [facility]JEDA [facility] 05/10 09:00:00 AM EST [facility] ([facility]) Outpatient Attender: ARMANI ANDERSONConsultant: YOUNG FIORE 05/03/2020 03:50:00 PM EST - 05/03/2020 03:50:00 PM EST [facility] <td ID="[id number]">AN NUAL PHYSICAL EXAM</td><td>Catherine Pitts MD</td><td>[facility],</td><td>05/02/2020</td><td>10:16AM</td><td>11:09AM</td><td><content ID="[id number]">Arthralgia</content>, <content ID="tzyfmmqvzQhdroszymJY51-1">Depression with Anxiety</content>, <content ID="hcjyyjqraAzfpuhglqHE81-6">Routine History & Physical Adult with Abnormal Findings</content>, <content ID="clpflthvoGkqtryplrKH12-4">Tremor</content>, <content ID="[id number]">Psoriasis</content></td>Outpatient Attender: Catherine Pitts MD [facility], 05/02/2020 10:16:00 AM EST - 05/02/2020 11:09:00 AM EST TremorDepression with AnxietyArthralgiaTremorDepression with AnxietyArthralgiaTremorDepression with AnxietyArthralgiaTremorDepression with AnxietyArthralgiaTremorDepression with AnxietyArthralgiaTremorDepression with AnxietyArthralgiaTremorDepression with AnxietyArthralgiaTremorDepression with AnxietyArthralgiaTremorDepression with AnxietyArthralgiaTremorDepression with AnxietyArthralgiaTremorDepression with AnxietyArthralgiaTremorDepression with AnxietyArthralgiaPsoriasisRoutine History & Physical Adult with Abnormal FindingsPsoriasisRoutine History & Physical Adult with Abnormal FindingsPsoriasisRoutine History & Physical Adult with Abnormal FindingsPsoriasisRoutine History & Physical Adult with Abnormal FindingsPsoriasisRoutine History & Physical Adult with Abnormal FindingsPsoriasisRoutine History & Physical Adult with Abnormal FindingsPsoriasisRoutine History & Physical Adult with Abnormal FindingsPsoriasisRoutine History & Physical Adult with Abnormal FindingsPsoriasisRoutine History & Physical Adult with Abnormal FindingsPsoriasisRoutine History & Physical Adult with Abnormal FindingsPsoriasisRoutine History & Physical Adult with Abnormal FindingsPsoriasisRoutine History & Physical Adult with Abnormal Findings [facility] ([facility]) Tremor Depression with Anxiety Arthralgia Tremor Depression with Anxiety Arthralgia Tremor Depression with Anxiety Arthralgia Tremor Depression with Anxiety Arthralgia Tremor Depression with Anxiety Arthralgia Tremor Depression with Anxiety Arthralgia Tremor Depression with Anxiety Arthralgia Tremor Depression with Anxiety Arthralgia Tremor Depression with Anxiety Arthralgia Tremor Depression with Anxiety Arthralgia Tremor Depression with Anxiety Arthralgia Tremor Depression with Anxiety Arthralgia Psoriasis Routine History & Physical Adult with Ab normal Findings Psoriasis Routine History & Physical Adult with Ab normal Findings Psoriasis Routine History & Physical Adult with Ab normal Findings Psoriasis Routine History & Physical Adult with Ab normal Findings Psoriasis Routine History & Physical Adult with Ab normal Findings Psoriasis Routine History & Physical Adult with Ab normal Findings Psoriasis Routine History & Physical Adult with Ab normal Findings Psoriasis Routine History & Physical Adult with Ab normal Findings Psoriasis Routine History & Physical Adult with Ab normal Findings Psoriasis Routine History & Physical Adult with Ab normal Findings Psoriasis Routine History & Physical Adult with Ab normal Findings Psoriasis Routine History & Physical Adult with Ab normal Findings Outpatient Attender: SADI Cortes/Christian/Esteban/Ky navarro 04/25/2020 07:00:00 AM EST [facility] ([facility], ) <td ID="[id number]">NO FAULT</td><td>Krystal Salazar NP</td><td>[facility]</td><td>04/20/2020</td><td>10:07AM</td><td>10:48AM</td><td><content ID="[id number]">Postconcussion Syndrome</content></td>Outpatient Attender: Krystal Salazar NP [facility] 04/20/2020 10:07:00 AM EST - 04/20/2020 10:48:00 AM EST Postconcussion SyndromePostconcussion SyndromePostconcussion SyndromePostconcussion SyndromePostconcussion SyndromePostconcussion SyndromePostconcussion SyndromePostconcussion SyndromePostconcussion SyndromePostconcussion SyndromePostconcussion SyndromePostconcussion SyndromePostconcussion Syndrome [facility] ([facility]) Postconcussion Syndrome Postconcussion Syndrome Postconcussion Syndrome Postconcussion Syndrome Postconcussion Syndrome Postconcussion Syndrome Postconcussion Syndrome Postconcussion Syndrome Postconcussion Syndrome Postconcussion Syndrome Postconcussion Syndrome Postconcussion Syndrome Postconcussion Syndrome Outpatient Attender: VLADIMIR Lopez tender: ARMANI Rodríguezant: YOUNG NO 04/07/2020 10:49:00 AM EST - 04/07/2020 10:49:[address] [facility] Outpatient Attender: ARMANI Rodríguezant: YOUNG NO 04/05/2020 11:01:00 AM EST - 04/05/2020 11:01:00 AM [facility] Outpatient<td ID="encounterTypeDescripti onID15">NO FAULT</td><td>Krystal Salazar NP</td><td>[facility],</td><td>03/30/2020</td><td>8:01AM</td><td>8:27AM</td><td><content ID="[id number]">Postconcussion Syndrome</content></td> Attender: Krystal Salazar NP [facility], 03/30/2020 08:01:00 AM EDT - 03/30/2020 08:27:00 AM EDT Postconcussion SyndromePostconcussion SyndromePostconcussion SyndromePostconcussion SyndromePostconcussion SyndromePostconcussion SyndromePostconcussion SyndromePostconcussion SyndromePostconcussion SyndromePostconcussion SyndromePostconcussion SyndromePostconcussion SyndromePostconcussion SyndromePostconcussion Syndrome [place] [facility]ISY ([facility]) Postconcussion Syndrome Postconcussion Syndrome Postconcussion Syndrome Postconcussion Syndrome Postconcussion Syndrome Postconcussion Syndrome Postconcussion Syndrome Postconcussion Syndrome Postconcussion Syndrome Postconcussion Syndrome Postconcussion Syndrome Postconcussion Syndrome Postconcussion Syndrome Postconcussion Syndrome Outpatient Attender: Doris Guerra MD Main office - [facility] 03/08/2020 01:30:00 PM EDT [facility] ([facility]) Outpatient Attender: ARMANI Christianson errer: Waqas Dunn MDConsultant: PCP NO 03/07/2020 09:08:00 AM EDT - 03/07/2020 09:08:00 AM EDT [facility] <td ID="[id number]">NO FAULT</td><td>Krystal Salazar NP</td><td>[facility]</td><td>03/02/2020</td><td>9:01AM</td><td>9:54AM</td><td><content ID="vkhpuhhohYflrnwlywCI16-0">Postconcussion Syndrome</content></td>Outpatient Attender: Krystal Salazar NP [facility] 03/02/2020 09:01:00 AM EDT - 03/02/2020 09:54:00 AM EDT Postconcussion SyndromePostconcussion SyndromePostconcussion SyndromePostconcussion SyndromePostconcussion SyndromePostconcussion SyndromePostconcussion SyndromePostconcussion SyndromePostconcussion SyndromePostconcussion SyndromePostconcussion SyndromePostconcussion SyndromePostconcussion SyndromePostconcussion SyndromePostconcussion Syndrome [facility]) Postconcussion Syndrome Postconcussion Syndrome Postconcussion Syndrome Postconcussion Syndrome Postconcussion Syndrome Postconcussion Syndrome Postconcussion Syndrome Postconcussion Syndrome Postconcussion Syndrome Postconcussion Syndrome Postconcussion Syndrome Postconcussion Syndrome Postconcussion Syndrome Postconcussion Syndrome Postconcussion Syndrome Outpatient Attender: VLADIMIR OJEDA [facility] 02/22 08:20:00 AM EDT [facility] Outpatient Attender: VLADIMIR Freitas garcia: Waqas Dunn MDConsultant: PCP NO 02/23/2020 08:17:00 AM EDT - 02/23/2020 08:17:00 AM EDT [facility] Outpatient Attender: Katerina Quiroga MD Physical Therapy 02/21 10:45:00 AM EDT [facility] Out[facility] Attender: ARMANI ANDERSONConsultant: PCP NO 02/09/2020 02:52:00 PM EDT - 02/09/2020 02:52:00 PM EDT [facility] Outpatient<td ID="[email or web address]">NO FAULT</td><td>Krystal Salazar NP</td><td>[facility]</td><td>02/01/2020</td><td>10:52AM</td><td>11:46AM</td><td><content ID="[id number]">Concussion</content>, <content ID="[id number]">Generalized Anxiety Disorder</content>, <content ID="[id number]">Arthralgia - Shoulder Region Right</content>, <content ID="[id number]">Postconcussion Syndrome</content></td> Attender: Krystal Salazar NP [facility] 02/01/2020 10:52:00 AM EDT - 02/01/2020 11:46:00 AM EDT Postconcussion SyndromeArthralgia - Shou lder Region RightGeneralized Anxiety DisorderPostconcussion SyndromeArthralgia - Shoulder Region RightGeneralized Anxiety DisorderPostconcussion SyndromeArthra lgia - Shoulder Region RightGeneralized Anxiety DisorderPostconcussion SyndromeArthralgia - Shoulder Region RightGeneralized Anxiety DisorderPostconcussion SyndromeArthralgia - Shoulder Region RightGeneralized Anxiety DisorderPostconcussion SyndromeArthralgia - Shoulder Region RightGeneralized Anxiety DisorderPostconcussion SyndromeArthralgia - Shoulder Region RightGeneralized Anxiety DisorderPostconcussion SyndromeArthralgia - Shoulder Region RightGeneralized Anxiety DisorderPostconcussion SyndromeArthralgia - Shoulder Region RightGeneralized Anxiety DisorderPostconcussion SyndromeArthralgia - Shoulder Region RightGeneralized Anxiety DisorderPostconcussion SyndromeArthralgia - Shoulder Region Right Generalized Anxiety DisorderPostconcussion SyndromeArthralgia - Shoulder Region RightGeneralized Anxiety DisorderPostconcussion SyndromeArthralgia - Shoulder Region RightGeneralized Anxiety DisorderPostconcussion SyndromeArthralgia - Shoulder Region RightGeneralized Anxiety DisorderConcussionConcussionConcussionConcussionConcussionConcussionConcussionCo ncussionConcussionConcussionConcussionConcussionConcussionConcussion SODDY DAISY ([facility]) Postconcussion Syndrome Arthralgia - Shoulder Region Right Generalized Anxiety Disorder Postconcussion Syndrome Arthralgia - Shoulder Region Right Generalized Anxiety Disorder Postconcussion Syndrome Arthralgia - Shoulder Region Right Generalized Anxiety Disorder Postconcussion Syndrome Arthralgia - Shoulder Region Right Generalized Anxiety Disorder Postconcussion Syndrome Arthralgia - Shoulder Region Right Generalized Anxiety Disorder Postconcussion Syndrome Arthralgia - Shoulder Region Right Generalized Anxiety Disorder Postconcussion Syndrome Arthralgia - Shoulder Region Right Generalized Anxiety Disorder Postconcussion Syndrome Arthralgia - Shoulder Region Right Generalized Anxiety Disorder Postconcussion Syndrome Arthralgia - Shoulder Region Right Generalized Anxiety Disorder Postconcussion Syndrome Arthralgia - Shoulder Region Right Generalized Anxiety Disorder Postconcussion Syndrome Arthralgia - Shoulder Region Right Generalized Anxiety Disorder Postconcussion Syndrome Arthralgia - Shoulder Region Right Generalized Anxiety Disorder Postconcussion Syndrome Arthralgia - Shoulder Region Right Generalized Anxiety Disorder Postconcussion Syndrome Arthralgia - Shoulder Region Right Generalized Anxiety Disorder Concussion Concussion Concussion Concussion Concussion Concussion Concussion Concussion Concussion Concussion Concussion Concussion Concussion Concussion Outpatient Attender: VLADIMIR garciar: Waqas Dunn MDConsultant: PCP NO 01/27/2020 07:50:00 AM EDT - 01/27/2020 07:50:00 AM EDT [facility] Outpatient Attender: ARMANI Christianson errer: Waqas Dunn MDConsultant: PCP NO 01/25/2020 08:56:00 AM EDT - 01/25/2020 08:56:00 AM EDT [facility] Outpatient Attender: ARMANI ANDERSONConsultant: PCP NO 01/08/2020 09:02:00 AM EDT - 01/08/2020 09:02:00 AM EDT [facility] Out[facility] Attender: VLADIMIR garciar: VLADIMIR GELLER PAConsultant: PCP NO 12/29/2019 02:14:00 PM EDT - 12/29/2019 02:24:00 PM EDT [facility] Outpatient Attender: VLADIMIR Martinezerrer: Waqas washington MD 12/29/2019 08:59:00 AM EDT - 12/29/2019 08:59:00 AM T [facility] Outpatient Attender: ARMANI Christiansonerrer: Waqas chan MD 12/22/2019 09:00:00 AM EDT - 12/22/2019 09:00:00 AM EDT [facility] Outpatient Attender: OSVALDO RAUSCH LMSW 02:50:00 PM EDT - 12/11/2019 02:50:00 PM EDT [facility] Immunizations Vaccine Date Status Description Data Source(s) New in 2011. IIV4 03/11/2020 10:25:00 AM EDT completed MEDENT ([facility], ) Medications Medication Brand Name Start Date Product Form Dose Route Admi nistrative Instructions Pharmacy Instructions Status Indications Reaction Description Data Source(s) Injection fremanezumab-vfrm 1 03/03/2021 12:00:00 AM EDT completed MEDENT ([facility], ) Medication administered onsite Cyclobenzaprine hydrochloride 10 MG Oral Tablet Cyclobenzaprine HCl 10 MG Oral Tablet Cyclobenzaprine HCl 10 MG Oral Tablet 03/02/2021 12:00:00 AM EDT active cyclobenzaprine hydrochlorid e 10 MG Oral Tablet MOE ([facility]) Prednisone 20 MG Oral Tablet Prednisone 02/24/2021 12:00:00 AM EDT active MEDENT ([facility]) Ajovy Ajovy 02/24/2021 12:00:00 AM EDT SUBCUTANEOUS act celestina MEDENT ([facility] ) gabapentin 100 MG Oral Capsule [Neurontin] Neurontin 1 00 MG Oral Capsule Neurontin 100 MG Oral Capsule 02/22/2021 12:00:00 AM EDT active gabapentin 100 MG Oral Capsule [Neurontin] MOE ([facility]) Cyclobenzaprine hydrochloride 10 MG Oral Tablet Cyclobenzaprine HCl 10 MG Oral Tablet Cyclobenzaprine HCl 10 MG Oral Tablet 02/22/2021 12:00:00 AM EDT aborted cyclobenzaprine hydrochlorid e 10 MG Oral Tablet MOE ([facility]) Hydroxyzine Hydrochloride 25 MG Oral Tablet hydrOXYzin e HCl 25 MG Oral Tablet hydrOXYzine HCl 25 MG Oral Tablet 12/28/2020 12:00:00 AM EDT 1 active hydroxyzine hydrochloride 25 MG Oral Tablet MOE ( [facility]) gabapentin 100 MG Oral Capsule [Neurontin] Neurontin 1 00 MG Oral Capsule Neurontin 100 MG Oral Capsule 11/29/2020 12:00:00 AM EDT aborted gabapentin 100 MG Oral Capsule [Neurontin] MOE ([facility]) Prazosin 1 MG Oral Capsule Prazosin HCl 1 MG Oral Caps ule Prazosin HCl 1 MG Oral Capsule 11/02/2020 12:00:00 AM EDT active prazosin 1 MG Oral Capsule MOE ([facility]) Prazosin 1 MG Oral Capsule Prazosin HCL 10/28/2020 12:00:00 AM EDT ORAL active MEDENT ([facility]) Hydroxyzine Hydrochloride 25 MG Oral Tablet hydrOXYzin e HCl 25 MG Oral Tablet hydrOXYzine HCl 25 MG Oral Tablet 10/04/2020 12:00:00 AM EDT 1 aborted hydroxyzine hydrochloride 25 MG Oral Tab let MOE ([facility]) Citalopram 10 MG Oral Tablet Citalopram Hydrobromide 09/13/2020 12:00:00 AM EDT ORAL active MEDENT ( [facility]) gabapentin 100 MG Oral Capsule [Neurontin] Neurontin 1 00 MG Oral Capsule Neurontin 100 MG Oral Capsule 09/05/2020 12:00:00 AM EDT aborted gabapentin 100 MG Oral Capsule [Neurontin] MOE ([facility]) Hydroxyzine Hydrochloride 25 MG Oral Tablet hydrOXYzin e HCl 25 MG Oral Tablet hydrOXYzine HCl 25 MG Oral Tablet 07/15/2020 12:00:00 AM EST 1 aborted hydroxyzine hydrochloride 25 MG Oral Tab let MOE ([facility]) Sumatriptan 50 MG Oral Tablet Sumatriptan Succinate 06/21/2020 1 2:00:00 AM EST completed MEDENT ([facility] ) gabapentin 100 MG Oral Capsule [Neurontin] Neurontin 1 00 MG Oral Capsule Neurontin 100 MG Oral Capsule 06/14/2020 12:00:00 AM EST aborted gabapentin 100 MG Oral Capsule [Neurontin] MOE ([facility]) gabapentin 100 MG Oral Capsule [Neurontin] Neurontin 1 00 MG Oral Capsule Neurontin 100 MG Oral Capsule 05/20/2020 12:00:00 AM EST aborted gabapentin 100 MG Oral Capsule [Neurontin] MOE ([facility]) Citalopram 20 MG Oral Tablet Citalopram Hydrobromide 05/10/2020 12:00:00 AM EST ORAL active MEDENT ( [facility]) Hydroxyzine Hydrochloride 25 MG Oral Tablet hydrOXYzin e HCl 25 MG Oral Tablet hydrOXYzine HCl 25 MG Oral Tablet 05/02/2020 12:00:00 AM EST 1 aborted hydroxyzine hydrochloride 25 MG Oral Tab let MOE ([facility]) Sertraline 100 MG Oral Tablet Sertraline HCl 100 MG Or al Tablet Sertraline HCl 100 MG Oral Tablet 05/02/2020 12:00:00 AM EST active sertraline 100 MG Oral Tablet MOE ([facility]) gabapentin 100 MG Oral Capsule [Neurontin] Neurontin 1 00 MG Oral Capsule Neurontin 100 MG Oral Capsule 04/20/2020 12:00:00 AM EST aborted gabapentin 100 MG Oral Capsule [Neurontin] MOE ([facility]) Hydroxyzine Hydrochloride 25 MG Oral Tablet hydrOXYzin e HCl 25 MG Oral Tablet hydrOXYzine HCl 25 MG Oral Tablet 04/20/2020 12:00:00 AM EST 1 aborted hydroxyzine hydrochloride 25 MG Oral Tab let MOE ([facility]) gabapentin 100 MG Oral Capsule [Neurontin] Neurontin 1 00 MG Oral Capsule Neurontin 100 MG Oral Capsule 03/30/2020 12:00:00 AM EDT aborted gabapentin 100 MG Oral Capsule [Neurontin] MEO ([facility]) Nurtec Nurtec 03/08/2020 12:00:00 AM EDT active MEDENT ([facility] ) gabapentin 100 MG Oral Capsule [Neurontin] Neurontin 1 00 MG Oral Capsule Neurontin 100 MG Oral Capsule 03/02/2020 12:00:00 AM EDT aborted gabapentin 100 MG Oral Capsule [Neurontin] MOE ([facility]) Hydroxyzine Hydrochloride 25 MG Oral Tablet hydrOXYzin e HCl 25 MG Oral Tablet hydrOXYzine HCl 25 MG Oral Tablet 03/02/2020 12:00:00 AM EDT 1 aborted hydroxyzine hydrochloride 25 MG Oral Tab let MOE ([facility]) gabapentin 100 MG Oral Capsule [Neurontin] Neurontin 1 00 MG Oral Capsule Neurontin 100 MG Oral Capsule 03/02/2020 12:00:00 AM EDT aborted gabapentin 100 MG Oral Capsule [Neurontin] MOE ([facility]) gabapentin 100 MG Oral Capsule [Neurontin] Neurontin 1 00 MG Oral Capsule Neurontin 100 MG Oral Capsule 12/24/2019 12:00:00 AM EDT aborted gabapentin 100 MG Oral Capsule [Neurontin] MOE ([facility]) Naproxen 375 MG Delayed Release Oral Tab let [Naprosyn] EC-Naprosyn 375 MG Oral Tablet Delayed Release EC-Naprosyn 375 MG Oral Tablet Delayed Release 12:00:00 AM EDT aborted naproxen 375 MG Delayed Release Oral Tablet [Naprosyn] MOE ([facility]) Hydroxyzine Hydrochloride 25 MG Oral Tablet hydrOXYzin e HCl 25 MG Oral Tablet hydrOXYzine HCl 25 MG Oral Tablet 12/23/2019 12:00:00 AM EDT 1 aborted hydroxyzine hydrochloride 25 MG Oral Tab let MOE ([facility]) Sertraline 100 MG Oral Tablet Sertraline HCl 100 MG Or al Tablet Sertraline HCl 100 MG Oral Tablet 12/23/2019 12:00:00 AM EDT 1 aborted sertraline 100 MG Oral Tablet SODDY DAISY ([facility]) Insurance Providers Payer name Policy type / Coverage type Policy ID Covered democrat ID Covered democrat's relationship to lopez Policy Lopez Plan Information NO FAULT [id number] SP [id number] [employer] [place] PPO 302/307 [id number] SP [id number] NO FAULT [id number] SP [id number] [employer] [id number] 18 [id number] BCBS of [facility] Other 0 [id number] Se lf [address] [facility] [place] Other 0 [id number] Se lf 0 NO FAULT [phone] SP [phone] NO FAULT [id number] SP [id number] [facility] [place] Other 0 [id number] Se lf 0 NO FAULT [id number] SP [id number] [facility] of [facility] Other 0 [id number] Se lf [address] [facility] [place] Other 0 [id number] Se lf [address] [facility] [place] Other 0 [id number] Se lf [address] [facility] [place] Other 0 [id number] Se lf 0 NO FAULT [id number] SP [id number] BCBS of [facility] [place] Other 0 [id number] Se lf [address] [facility] [place] Other 0 [id number] Se lf [address] [facility] [place] Other 0 [id number] Se lf 0 [employer] BCBS B [id number] S [id number] BCBS of [facility] [place] Other 0 [id number] Se lf [address] [facility] [place] Other 0 [id number] Se lf [address] [facility] [place] Other 0 [id number] Se lf [address] [facility] [place] Other 0 [id number] Se lf 0 [employer] [id number] [id number] [facility] [place] Other 0 [id number] Se lf [address] [facility] [place] Other 0 [id number] Se lf 0 SELF PAY ONLY [facility] NO FAULT [id number] FA2 [id number] BC[facility] OF [facility] 306/806 [id number] SP [id number] BCBS of [facility] [place] Other 0 [id number] Se lf [address] [facility] [place] Other 0 [id number] Se lf 0 NO FAULT [id number] FA2 [id number] [address] of [facility] [place] Other 0 [id number] Se lf [address] [facility] [place] Other 0 [id number] Se lf 0 BCBS OF [place] 306/806 [id number] SP [id number] BCBS OF [place] 306/806 [id number] SP [id number] NO FAULT [id number] FA2 [id number] NO FAULT [id number] FA2 [id number] [address] of [facility] [place] Other 0 [id number] Se lf 0 NO FAULT [id number] FA2 [id number] NO FAULT [id number] FA2 [id number] NO FAULT [id number] FA2 [id number] NO FAULT O [id number] S [id number] NO FAULT [id number] FA2 [id number] BCBS of [facility] Other 0 [id number] Se lf 0 NO FAULT [id number] FA2 [id number] [facility] [id number] FA2 [id number] NO FAULT [id number] FA2 [id number] NO FAULT [id number] FA2 [id number] N REGIONAL CLAIMS ERICH -O/P [id number] 33 [id number] [facility] O [id number] S [id number] NO FAULT S [id number] C [id number] Problems, Conditions, and Diagnoses Code Display Name Description Problem Type Effective Dates Data Source(s) Z638 Other specified problems related to prim jeff support group Other specified problems related to primary support group Diagnosis [facility] Mild cognitive impairment, so stated Mild cognit celestina impairment, so stated Diagnosis 03[facility]16[facility] F[facility] Nightmare disorder Nightmare disorder Diagnosis 10:57:00 AM [facility] F438 Other reactions to severe stress Other reactions to severe stress Diagnosis 03/16/2021 10:57:00 AM [facility] F51.02 Transient insomnia Transient insomnia Problem 12:00:00 AM ALPESH KC ([facility], ) 310.2 Postconcussion Syndrome Postconcussion Syndrome Proble m 02/02/2020 12:00:00 AM EDT MOE ([facility]) [id number] Arthropathy of right shoulder (disorder) Arthralgia - Shoulder Region Right Problem 02/02/2020 12:00:00 AM EDT MOE ([facility]) 300.00 Generalized Anxiety Disorder Generalized Anxiety Disor smitha Problem 02/02/2020 12:00:00 AM EDT MOE ([facility]) 310.2 Postconcussion Syndrome Postconcussion Syndrome Proble m 02/02/2020 12:00:00 AM EDT MOE ([facility]) [id number] Arthralgia - Shoulder Region Right Arthralgia - Shoulder Region Right Finding 02/02/2020 12:00:00 AM EDT MOE ([facility]) 300.00 Generalized Anxiety Disorder Generalized Anxiety Disor smitha Problem 02/02/2020 12:00:00 AM EDT MOE ([facility]) 310.2 Postconcussion Syndrome Postconcussion Syndrome Proble 02/02/2020 12:00:00 AM EDT MOE ([facility]) [id number] Arthralgia - Shoulder Region Right Arthralgia - Shoulder Region Right Finding 02/02/2020 12:00:00 AM EDT MOE ([facility]) 300.00 Generalized Anxiety Disorder Generalized Anxiety Disor smitha Problem 02/02/2020 12:00:00 AM EDT MOE ([facility]) 310.2 Postconcussion Syndrome Postconcussion Syndrome Proble 02/02/2020 12:00:00 AM EDT MOE ([facility]) [id number] Arthralgia - Shoulder Region Right Arthralgia - Shoulder Region Right Finding 02/02/2020 12:00:00 AM EDT MOE ([facility]) 300.00 Generalized Anxiety Disorder Generalized Anxiety Disor smitha Problem 02/02/2020 12:00:00 AM EDT MOE ([facility]) 310.2 Postconcussion Syndrome Postconcussion Syndrome Proble 02/02/2020 12:00:00 AM EDT MOE ([facility]) [id number] Arthropathy of right shoulder (disorder) Arthralgia - Shoulder Region Right Problem 02/02/2020 12:00:00 AM EDT MOE ([facility]) 300.00 Generalized Anxiety Disorder Generalized Anxiety Disor smitha Problem 02/02/2020 12:00:00 AM EDT MOE ([facility]) 310.2 Postconcussion Syndrome Postconcussion Syndrome Proble 02/02/2020 12:00:00 AM EDT MOE ([facility]) [id number] Arthropathy of right shoulder (disorder) Arthralgia - Shoulder Region Right Problem 02/02/2020 12:00:00 AM EDT MOE ([facility]) 300.00 Generalized Anxiety Disorder Generalized Anxiety Disor smitha Problem 02/02/2020 12:00:00 AM EDT MOE ([facility]) 310.2 Postconcussion Syndrome Postconcussion Syndrome Proble 02/02/2020 12:00:00 AM EDT MOE ([facility]) [id number] Arthralgia - Shoulder Region Right Arthralgia - Shoulder Region Right Finding 02/02/2020 12:00:00 AM EDT MOE ([facility]) 300.00 Generalized Anxiety Disorder Generalized Anxiety Disor smitha Problem 02/02/2020 12:00:00 AM EDT MOE ([facility]) 310.2 Postconcussion Syndrome Postconcussion Syndrome Proble 02/02/2020 12:00:00 AM EDT MOE ([facility]) [id number] Arthralgia - Shoulder Region Right Arthralgia - Shoulder Region Right Finding 02/02/2020 12:00:00 AM EDT MOE ([facility]) 300.00 Generalized Anxiety Disorder Generalized Anxiety Disor smitha Problem 02/02/2020 12:00:00 AM EDT MOE ([facility]) 310.2 Postconcussion Syndrome Postconcussion Syndrome Proble 02/02/2020 12:00:00 AM EDT MOE ([facility]) [id number] Arthralgia - Shoulder Region Right Arthralgia - Shoulder Region Right Finding 02/02/2020 12:00:00 AM EDT MOE ([facility]) 300.00 Generalized Anxiety Disorder Generalized Anxiety Disor smitha Problem 02/02/2020 12:00:00 AM EDT MOE ([facility]) 310.2 Postconcussion Syndrome Postconcussion Syndrome Proble 02/02/2020 12:00:00 AM EDT MOE ([facility]) [id number] Arthralgia - Shoulder Region Right Arthralgia - Shoulder Region Right Finding 02/02/2020 12:00:00 AM EDT MOE ([facility]) 300.00 Generalized Anxiety Disorder Generalized Anxiety Disor smitha Problem 02/02/2020 12:00:00 AM EDT MOE ([facility]) 310.2 Postconcussion Syndrome Postconcussion Syndrome Proble 02/02/2020 12:00:00 AM EDT MEO ([facility]) [id number] Arthralgia - Shoulder Region Right Arthralgia - Shoulder Region Right Finding 02/02/2020 12:00:00 AM EDT MOE ([facility]) 300.00 Generalized Anxiety Disorder Generalized Anxiety Disor smitha Problem 02/02/2020 12:00:00 AM EDT MOE ([facility]) 310.2 Postconcussion Syndrome Postconcussion Syndrome Proble 02/02/2020 12:00:00 AM EDT MOE ([facility]) [id number] Arthralgia - Shoulder Region Right Arthralgia - Shoulder Region Right Finding 02/02/2020 12:00:00 AM EDT MOE ([facility]) 300.00 Generalized Anxiety Disorder Generalized Anxiety Disor smitha Problem 02/02/2020 12:00:00 AM EDT MOE ([facility]) 310.2 Postconcussion Syndrome Postconcussion Syndrome Proble 02/02/2020 12:00:00 AM EDT MOE ([facility]) [id number] Arthralgia - Shoulder Region Right Arthralgia - Shoulder Region Right Finding 02/02/2020 12:00:00 AM EDT MOE ([facility]) 300.00 Generalized Anxiety Disorder Generalized Anxiety Disor smitha Problem 02/02/2020 12:00:00 AM EDT MOE ([facility]) 310.2 Postconcussion Syndrome Postconcussion Syndrome Proble 02/02/2020 12:00:00 AM EDT MOE ([facility]) [id number] Arthralgia - Shoulder Region Right Arthralgia - Shoulder Region Right Finding 02/02/2020 12:00:00 AM EDT MOE ([facility]) 300.00 Generalized Anxiety Disorder Generalized Anxiety Disor smitha Problem 02/02/2020 12:00:00 AM EDT MOE ([facility]) 310.2 Postconcussion Syndrome Postconcussion Syndrome Proble m 02/02/2020 12:00:00 AM EDT SODDY DAISY ([facility]) [id number] Arthralgia - Shoulder Region Right Arthralgia - Shoulder Region Right Finding 02/02/2020 12:00:00 AM EDT SODDY DAISY ([facility]) 300.00 Generalized Anxiety Disorder Generalized Anxiety Disor smitha Problem 02/02/2020 12:00:00 AM EDT SODDY DAISY ([facility]) 310.2 Postconcussion Syndrome Postconcussion Syndrome Proble m 02/02/2020 12:00:00 AM EDT SODDY DAISY ([facility]) [id number] Arthralgia - Shoulder Region Right Arthralgia - Shoulder Region Right Finding 02/02/2020 12:00:00 AM EDT SODDY DAISY ([facility]) 300.00 Generalized Anxiety Disorder Generalized Anxiety Disor smitha Problem 02/02/2020 12:00:00 AM EDT SODDY DAISY ([facility]) Surgeries/Procedures Procedure Description Date Indications Data Source(s) Chemotherpy Admin Subcutaneous/Im Non-Hormonal Anti-Neoplast ic 03/03/2021 12:00:00 AM EDT MEDENT ([facility]) Chemotherpy Admin Subcutaneous/Im Non-Hormonal Anti-Neoplast ic 03/03/2021 12:00:00 AM EDT MEDENT ([facility]) OFFICE OUTPATIENT VISIT 25 MINUTES 02/27/2021 12:00:00 AM EDT MEDENT ([facility]) OFFICE OUTPATIENT VISIT 25 MINUTES 02/24/2021 12:00:00 AM EDT MEDENT ([facility]) OFFICE OUTPATIENT VISIT 25 MINUTES 02/24/2021 12:00:00 AM EDT MEDENT ([facility], ) OFFICE OUTPATIENT VISIT 25 MINUTES 02/13/2021 12:00:00 AM EDT MEDENT ([facility], ) Inject/Drain Arthrocentesis Major Joint/Bursa/Ganglion Cyst 01/02/2021 12:00:00 AM EDT [facility] ([facility] OFFICE OUTPATIENT VISIT 25 MINUTES 01/02/2021 12:00:00 AM EDT MEDENT ([facility], ) MEDICAL RECORDS PREPARATION ($0.75 / PAGE+ postage) CT DICAL RECORDS PREPARATION ($0.75 / PAGE+ postage) 12/06/2020 12:00:00 AM EDT MOE ([facility]) OFFICE OUTPATIENT VISIT 25 MINUTES 11/28/2020 12:00:00 AM EDT MEDENT ([facility]) OFFICE OUTPATIENT VISIT 15 MINUTES 11/21/2020 12:00:00 AM EDT MEDENT ([facility], ) MRI Brain W/O Contrast, Followed By Contrast 12:00:00 AM EDT MEDENT ([facility]) MRI Brain W/O Contrast, Followed By Contrast 12:00:00 AM EDT MEDENT ([facility], ) OFFICE OUTPATIENT VISIT 25 MINUTES 11/10/2020 12:00:00 AM EDT MEDENT ([facility], ) OFFICE OUTPATIENT VISIT 25 MINUTES 10/28/2020 12:00:00 AM EDT MEDENT ([facility]) OFFICE OUTPATIENT NEW 45 MINUTES 10/10/2020 12:00:00 A M EDT MEDENT ([facility], ) OFFICE OUTPATIENT VISIT 25 MINUTES 09/13/2020 12:00:00 AM EDT MEDENT ([facility]) Needle electromyography, each extremity, with related paraspinal areas, when performed, done with nerve conduction, amplitude and latency/velocity study; complete, five or more muscles studied, innervated by three or more nerves or four or more spinal levels (list separately in addition to the code for primary procedure). 08/17/2020 12:00:00 AM EDT MEDEN T ([facility], ) Needle electromyography, each extremity, with related paraspinal areas, when performed, done with nerve conduction, amplitude and latency/velocity study; complete, five or more muscles studied, innervated by three or more nerves or four or more spinal levels (list separately in addition to the code for primary procedure). 08/17/2020 12:00:00 AM EDT MEDEN T ([facility], ) [address] Nerve conduction studies 13 or more studies NEW 201208/17/2020 12:00:00 AM EDT MEDENT ([facility], ) OFFICE OUTPATIENT VISIT 15 MINUTES 07/27/2020 12:00:00 AM EST MEDENT ([facility], ) OFFICE OUTPATIENT VISIT 25 MINUTES 06/17/2020 12:00:00 AM EST MEDENT ([facility]) NON-INVASIVE PHYSIOLOGIC STUDY EXTREMITY 3 LEVLS 05/25 12:00:00 AM EST MEDENT ([facility], ) NON-INVASIVE PHYSIOLOGIC STUDY EXTREMITY 3 LEVLS 05/25 12:00:00 AM EST MEDENT ([facility], ) NON-INVASIVE PHYSIOLOGIC STUDY EXTREMITY 3 LEVLS 05/25 12:00:00 AM EST MEDENT ([facility], ) NON-INVASIVE PHYSIOLOGIC STUDY EXTREMITY 3 LEVLS 05/25 12:00:00 AM EST MEDENT ([facility], ) TSTG ANS FUNCJ CARDIOVAGAL INNERVAJ PARASYMP 0 12:00:00 AM EST MEDENT ([facility], ) TSTG ANS FUNCJ CARDIOVAGAL INNERVAJ PARASYMP 0 12:00:00 AM EST MEDENT ([facility], ) TESTING AUTONOMIC NERVOUS SYSTEM FUNCTION 05/25/2020 1 2:00:00 AM EST MEDENT ([facility], ) TESTING AUTONOMIC NERVOUS SYSTEM FUNCTION 05/25/2020 1 2:00:00 AM EST MEDENT ([facility], ) Screening papanicolaou smear; obtaining, preparing and conveyance of cervical or vaginal smear to laboratory PAP SMEAR COLLECTION 05/02/2020 12:00:00 AM EST SODDY DAISY ([facility]) ELECTROENCEPHALOGRAM W/REC AWAKE&ASLEEP 04/25/2020 12: 00:00 AM EST MEDENT ([facility], ) ELECTROENCEPHALOGRAM W/REC AWAKE&ASLEEP 04/25/2020 12: 00:00 AM EST MEDENT ([facility], ) Psychiatric Diag Eval W/Medical Service 01/27/2020 12: 00:00 AM EDT MEDENT ([facility]) Results ID Date Data Source [id number] 02/13/2021 12:00:00 AM EDT [facility] Name Value Range Interpretation Code Description Data Lea rce(s) Supporting Document(s) SARS coronavirus 2 Ag Negative [facility] This lab was ordered by [facility] and reported by [facility]. ID Date Data Source [id number] 01/30/2021 12:00:00 AM EDT [facility] Name Value Range Interpretation Code Description Data Lea rce(s) Supporting Document(s) SARS coronavirus 2 Ag Negative [facility] This lab was ordered by [facility] and reported by [facility]. ID Date Data Source [id number] 01/23/2021 12:00:00 AM EDT [facility] Name Value Range Interpretation Code Description Data Lea rce(s) Supporting Document(s) SARS coronavirus 2 Ag Negative [facility] This lab was ordered by [facility] and reported by [facility]. ID Date Data Source [id number] 01/17/2021 12:00:00 AM EDT [facility] Name Value Range Interpretation Code Description Data Lae rce(s) Supporting Document(s) SARS coronavirus 2 Ag Negative [facility] This lab was ordered by [facility] and reported by [facility]. ID Date Data Source [id number] 01/02/2021 11:44:00 AM EDT MEDENT ([facility], ) Name Value Range Interpretation Code Description Data Lea rce(s) Supporting Document(s) Laboratory test finding (navigational concept) Laboratory test result MEDENT ([facility], ) ID Date Data Source [id number] 12/20/2020 12:00:00 AM EDT [facility] Name Value Range Interpretation Code Description Data Lea rce(s) Supporting Document(s) SARS coronavirus 2 Ag Negative [facility] This lab was ordered by [facility] and reported by [facility]. ID Date Data Source [id number] 11/29/2020 12:00:00 AM EDT [facility] Name Value Range Interpretation Code Description Data Lea rce(s) Supporting Document(s) SARS coronavirus 2 Ag Negative [facility] This lab was ordered by [facility] and reported by [facility]. ID Date Data Source [id number] 11/22/2020 02:19:00 PM EDT [facility] Name Value Range Interpretation Code Description Data Lea rce(s) Supporting Document(s) SARS-CoV-2 (COVID-19) RNA [Presence] in Respiratory specimen by CEFERINO with probe detection Not Detected [facility] This lab was ordered by [facility] and reported by [employer]. ID Date Data Source [id number] 11/15/2020 02:28:00 PM EDT [facility] Name Value Range Interpretation Code Description Data Lea rce(s) Supporting Document(s) SARS-CoV-2 (COVID-19) RNA [Presence] in Respiratory specimen by CEFERINO with probe detection Not Detected [facility] This lab was ordered by [facility] and reported by [employer]. ID Date Data Source [id number] 11/08/2020 10:27:00 AM EDT [facility] Name Value Range Interpretation Code Description Data Lea rce(s) Supporting Document(s) SARS-CoV-2 (COVID-19) RNA [Presence] in Respiratory specimen by CEFERINO with probe detection Not Detected [facility] This lab was ordered by [facility] and reported by [employer]. ID Date Data Source [id number] 10/25/2020 12:55:00 PM EDT [facility] Name Value Range Interpretation Code Description Data Lea rce(s) Supporting Document(s) SARS-CoV-2 (COVID-19) RNA [Presence] in Respiratory specimen by CEFERINO with probe detection Not Detected [facility] This lab was ordered by [facility] and reported by [employer]. ID Date Data Source [id number] 10/21/2020 12:00:00 AM EDT [facility] Name Value Range Interpretation Code Description Data Lea rce(s) Supporting Document(s) SARS coronavirus 2 Ag Negative [facility] This lab was ordered by [facility] and reported by [facility]. ID Date Data Source [id number] 10/18/2020 02:03:00 PM EDT [facility] Name Value Range Interpretation Code Description Data Lea rce(s) Supporting Document(s) SARS-CoV-2 (COVID-19) RNA [Presence] in Respiratory specimen by CEFERINO with probe detection Not Detected [facility] This lab was ordered by [facility] and reported by [employer]. ID Date Data Source [id number] 10/14/2020 12:00:00 AM EDT [facility] Name Value Range Interpretation Code Description Data Lea rce(s) Supporting Document(s) SARS coronavirus 2 Ag Negative [facility] This lab was ordered by [facility] and reported by [facility]. ID Date Data Source [id number] 10/11/2020 02:13:00 PM EDT [facility] Name Value Range Interpretation Code Description Data Lea rce(s) Supporting Document(s) SARS-CoV-2 (COVID-19) RNA [Presence] in Respiratory specimen by CEFERINO with probe detection Not Detected [facility] This lab was ordered by [facility] and reported by [employer]. ID Date Data Source [id number] 10/04/2020 11:21:00 AM EDT [facility] Name Value Range Interpretation Code Description Data Lea rce(s) Supporting Document(s) SARS-CoV-2 (COVID-19) RNA [Presence] in Respiratory specimen by CEFERINO with probe detection Not Detected [facility] This lab was ordered by [facility] and reported by [employer] ID Date Data Source [id number] 10/04/2020 12:00:00 AM EDT [facility] Name Value Range Interpretation Code Description Data Lea rce(s) Supporting Document(s) SARS coronavirus 2 Ag Negative [facility] This lab was ordered by [facility] and reported by [facility]. ID Date Data Source [id number] 09/27/2020 03:45:00 PM EDT [facility] Name Value Range Interpretation Code Description Data Lea rce(s) Supporting Document(s) SARS-CoV-2 (COVID-19) RNA [Presence] in Respiratory specimen by CEFERINO with probe detection Not Detected [facility] This lab was ordered by [facility] and reported by [employer] ID Date Data Source [id number] 09/13/2020 12:00:00 AM EDT [facility] Name Value Range Interpretation Code Description Data Lea rce(s) Supporting Document(s) SARS coronavirus 2 Ag Negative [facility] This lab was ordered by [facility] and reported by [facility]. ID Date Data Source [id number] 08/30/2020 12:00:00 AM EDT [facility] Name Value Range Interpretation Code Description Data Lea rce(s) Supporting Document(s) SARS coronavirus 2 Ag Negative [facility] This lab was ordered by [facility] and reported by [facility]. ID Date Data Source [id number] 08/23/2020 12:00:00 AM EDT [facility] Name Value Range Interpretation Code Description Data Lea rce(s) Supporting Document(s) SARS coronavirus 2 Ag N [facility] This lab was ordered by [facility] and reported by [facility]. ID Date Data Source [id number] 08/23/2020 12:00:00 AM EDT [facility] Name Value Range Interpretation Code Description Data Lea rce(s) Supporting Document(s) SARS coronavirus 2 Ag N [facility] This lab was ordered by [facility] and reported by [facility]. ID Date Data Source [id number] 08/19/2020 12:00:00 AM EDT [facility] Name Value Range Interpretation Code Description Data Lea rce(s) Supporting Document(s) SARS coronavirus 2 Ag Negative [facility] This lab was ordered by [facility] and reported by [facility]. ID Date Data Source [id number] 08/16/2020 12:00:00 AM EDT [facility] Name Value Range Interpretation Code Description Data Lea rce(s) Supporting Document(s) SARS coronavirus 2 Ag Negative [facility] This lab was ordered by [facility] and reported by [facility]. ID Date Data Source [id number] 07/26/2020 12:00:00 AM EST [facility] Name Value Range Interpretation Code Description Data Lea rce(s) Supporting Document(s) SARS coronavirus 2 Ag Negative [facility] This lab was ordered by [facility] and reported by [facility]. ID Date Data Source [id number] 07/19/2020 12:00:00 AM EST [facility] Name Value Range Interpretation Code Description Data Lea rce(s) Supporting Document(s) SARS coronavirus 2 Ag Negative [facility] This lab was ordered by [facility] and reported by [facility]. ID Date Data Source [id number] 07/05/2020 12:00:00 AM EST [facility] Name Value Range Interpretation Code Description Data Lea rce(s) Supporting Document(s) SARS coronavirus 2 Ag Negative [facility] This lab was ordered by [facility] and reported by [facility]. ID Date Data Source [id number]/21/2020 12:00:00 AM EST [facility] Name Value Range Interpretation Code Description Data Lea rce(s) Supporting Document(s) SARS coronavirus 2 Ag Negative [facility] This lab was ordered by [facility] and reported by [facility]. ID Date Data Source [id number] 06/14/2020 12:00:00 AM EST [facility] Name Value Range Interpretation Code Description Data Lea rce(s) Supporting Document(s) SARS-CoV2 Rapid Antigen Negative [facility] This lab was ordered by [facility] and reported by [facility]. ID Date Data Source [id number] 05/24/2020 02:22:00 PM EST [facility] Name Value Range Interpretation Code Description Data Lea rce(s) Supporting Document(s) SARS coronavirus 2 RNA [facility] This lab was ordered by [facility] and reported by [facility]. ID Date Data Source [id number] 05/17/2020 12:27:00 PM EST [facility] Name Value Range Interpretation Code Description Data Lea rce(s) Supporting Document(s) SARS coronavirus 2 RNA [facility] This lab was ordered by [facility] and reported by [facility]. ID Date Data Source [id number] 05/16/2020 10:25:00 AM EST MOE ([facility]) Name Value Range Interpretation Code Description Data Lea rce(s) Supporting Document(s) Reported Physicians See Note Reported Physici ans SODDY DAISY ([facility]) Note: Reported Physicians:Ordering: Catherine Lopez AAttending: Catherine PittsCopngoc To: Catherine Pitts ID Date Data Source [id number] 05/16/2020 10:25:00 AM EST MOE ([facility]) Name Value Range Interpretation Code Description Data Lea rce(s) Supporting Document(s) TOTAL 25(OH) VITAMIN D 16.1 NG/ML Below low normal TOTAL 2 5(OH) VITAMIN D [facility]) ID Date Data Source [id number] 05/16/2020 10:25:00 AM EST SODDY DAISY ([facility]) Name Value Range Interpretation Code Description Data Lea rce(s) Supporting Document(s) Reported Physicians See Note Reported Physici ans SODDY DAISY ([facility]) Note: Reported Physicians:Ordering: Hai varela Catherine AAttending: Hong, JocelynCopy To: Hong Catherine ID Date Data Source [id number] 05/16/2020 10:25:00 AM EST SODDY DAISY ([facility]) Name Value Range Interpretation Code Description Data Lea rce(s) Supporting Document(s) FREE T3 3.1 PG/ML Normal FREE T3 SODDY DAISY ([facility]) ID Date Data Source [id number] 05/16/2020 10:25:00 AM EST SODDY DAISY ([facility]) Name Value Range Interpretation Code Description Data Lea rce(s) Supporting Document(s) Reported Physicians See Note Reported Physic ans SODDY DAISY ([facility]) Note: Reported Physicians:Ordering: Hai varela Catherine AAttending: Hong JocelynCopy To: Cade Pittsyn ID Date Data Source [id number] 05/16/2020 10:25:00 AM [facility] ([facility]) Name Value Range Interpretation Code Description Data [facility] rce(s) Supporting Document(s) GLUCOSE, FASTING 91 MG/DL Normal [facility]) BLOOD UREA NITROGEN 13 MG/DL Normal BLOOD UREA NITRO GEN SODDY DAISY ([facility]) CREATININE FOR GFR 0.74 MG/DL Normal CREATININE FOR GF R SODDY DAISY ([facility]) SODIUM LEVEL 141 MEQ/L Normal SODIUM LEVEL [facility]) GLOMERULAR FILTRATION RATE > 60.0 Normal GLOMERULA R FILTRATION RATE SODDY DAISY ([facility]) Note: Units are mL/min/1.73 m2 Chroni c Kidney Disease Staging per NKF: Stage I & II GFR >=60 Normal to Mildly Decreased Stage III GFR 30- 59 Moderately Decreased Stage IV GFR 15-29 Severely Decreased Stage V GFR <15 Very Little GFR Left ESRD GFR <15 on 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 CARBON DIOXIDE LEVEL 29 MEQ/L Normal CARBON DIOXIDE LEVEL [facility]) Anion gap in Body fluid 4 MEQ/L Below low normal ANION GAP [facility]) CALCIUM LEVEL 8.7 MG/DL Normal CALCIUM LEVEL [facility]) AST/SGOT 11 U/L Normal AST/SGOT SODDY DAISY ([facility]) BILIRUBIN,TOTAL 0.3 MG/DL Normal BILIRUBIN,TOTAL GREE [facility] ([facility]) ALT/SGPT 20 U/L Normal ALT/SGPT SODDY DAISY ([facility]) Alkaline phosphatase [Enzymatic activity/volume] in Se rum, Plasma or Blood 45 U/L Normal ALKALINE PHOSPHATASE [facility]) ALBUMIN/GLOBULIN RATIO 1.5 Normal ALBUMIN/GLOBU SAMPSON RATIO [facility]) TOTAL PROTEIN 6.5 GM/DL Normal TOTAL PROTEIN [facility]) Albumin [Mass/volume] in Blood by Bromocresol purple ( BCP) dye binding method 3.9 GM/DL Normal ALBUMIN [facility]) ID Date Data Source [id number] 05/16/2020 10:25:00 AM [facility] ([facility]) Name Value Range Interpretation Code Description Data Lea rce(s) Supporting Document(s) Reported Physicians See Note Reported Physici ans [facility]) Note: Reported Physicians:Ordering: Catherine Lopez AAttending: Louis Pitts To: Catherine Pitts ID Date Data Source [id number] 05/16/2020 10:25:00 AM EST MOE ([facility]) Name Value Range Interpretation Code Description Data Lea rce(s) Supporting Document(s) URIC ACID 2.5 MG/DL Below low normal URIC ACID [facility]) ID Date Data Source [id number] 05/16/2020 10:25:00 AM EST MOE ([facility]) Name Value Range Interpretation Code Description Data Lea rce(s) Supporting Document(s) Reported Physicians See Note Reported Physici ans SODDY DAISY ([facility]) Note: Reported Physicians:Ordering: Valles nichole Catherine AAttending: Hong, JocelynCopy To: Catherine Pitts ID Date Data Source [id number] 05/16/2020 10:25:00 AM EST MOE ([facility]) Name Value Range Interpretation Code Description Data [facility] rce(s) Supporting Document(s) RED BLOOD COUNT 4.71 6/uL Normal RED BLOOD COUNT [facility] ([facility]) WHITE BLOOD COUNT 9.0 3/uL Normal WHITE BLOOD COUNT SODDY DAISY ([facility]) Hemoglobin [Mass/volume] in Mixed venous blood by Oximetry 13.5 g/d l Normal HEMOGLOBIN [facility]) MEAN CORPUSCULAR HEMOGLOBIN 28.7 pg Normal MEAN COR PUSCULAR HEMOGLOBIN SODDY DAISY ([facility]) MEAN CORPUSCULAR VOLUME 88.5 fl Normal MEAN CORPUSC ULAR VOLUME SOD[facility]Y ([facility]) Hematocrit [Pure volume fraction] of Blood by Automated count 41.7 % Normal HEMATOCRIT [facility]) RED CELL DISTRIBUTION WIDTH 12.5 % Normal RED CELL DISTRIBUTION WIDTH SODDY DAISY ([facility]) MEAN CORPUSCULAR HGB CONC 32.4 g/dl Normal MEAN CORPU SCULAR HGB CONC SOD[facility] DAISY ([facility]) NUCLEATED RED BLOOD CELL % 0.0 % Normal NUCLEATED RED BLOOD CELL % SODDY DAISY ([facility]) PLATELET COUNT, AUTOMATED 278 3/uL Normal PLATELET C OUNT, AUTOMATED SODDY DAISY ([facility]) ID Date Data Source [id number] 05/16/2020 10:25:00 AM EST MOE ([facility]) Name Value Range Interpretation Code Description Data [facility] rce(s) Supporting Document(s) Reported Physicians See Note Reported Physici ans SODDY DAISY ([facility]) Note: Reported Physicians:Ordering: Valles e, Catherine AAttending: Hong, JocelynCopy To: Catherine Pitts ID Date Data Source [id number] 05/16/2020 10:25:00 AM EST MOE ([facility]) Name Value Range Interpretation Code Description Data Lea rce(s) Supporting Document(s) THYROID STIMULATING HORMONE 1.970 uIU/ML Normal THYROI D STIMULATING HORMONE [facility]) FREE T4 1.12 NG/DL Normal FREE T4 SODDY DAISY ([facility]) ID Date Data Source [id number] 05/16/2020 10:25:00 AM EST MOE ([facility]) Name Value Range Interpretation Code Description Data Lea rce(s) Supporting Document(s) Reported Physicians See Note Reported Physici ans SODDY DAISY ([facility]) Note: Reported Physicians:Ordering: Catherine Lopez AAttending: Michela PittscelynCopngoc To: Catherine Pitts ID Date Data Source [id number] 05/16/2020 10:25:00 AM EST MOE ([facility]) Name Value Range Interpretation Code Description Data Lea rce(s) Supporting Document(s) RHEUMATOID FACTOR QUANT < 10.0 IU/ML Normal RHEUMATOID FACTOR QUANT [facility]) ID Date Data Source [id number] 05/16/2020 10:25:00 AM EST MOE ([facility]) Name Value Range Interpretation Code Description Data Lea rce(s) Supporting Document(s) Reported Physicians See Note Reported Physic ans SODDY DAISY ([facility]) Note: Reported Physicians:Ordering: Hai varela Catherine AAttending: Hong JocelynCopy To: Catherine Pitts ID Date Data Source [id number] 05/16/2020 10:25:00 AM EST SODDY DAISY ([facility]) Name Value Range Interpretation Code Description Data Lea rce(s) Supporting Document(s) PTT LUPUS TYPE ANTICOAG SCREEN 0.9 Normal PTT L UPUS TYPE ANTICOAG SCREEN [facility]) Note: RESULT IS LESS THAN 1.2, NO [...] coagulation factor deficiency or a specific inhibitor. ID Date Data Source [id number] 05/16/2020 10:25:00 AM EST MOE ([facility]) Name Value Range Interpretation Code Description Data Lea rce(s) Supporting Document(s) Reported Physicians See Note Reported Physici ans SODDY DAISY ([facility]) Note: Reported Physicians:Ordering: Valles e Catherine AAttending: Hong, JocelynCopy To: Michela Pittscelyn ID Date Data Source [id number] 05/16/2020 10:25:00 AM [facility] ([facility]) Name Value Range Interpretation Code Description Data Lea rce(s) Supporting Document(s) ANTINUCLEAR ANTIBODIES DIRECT Negative Normal ANTINU CLEAR ANTIBODIES DIRECT SODDY DAISY ([facility]) ELEMENTARY VOCAL MUSIC TEACHER ANTIBODIES 0.2 AI Normal ELEMENTARY VOCAL MUSIC TEACHER ANTIBODIES [facility]) SJOGREN'S ANTI SS-A <0.2 AI Normal SJOGREN'S ANTI S S-A [facility]) AMARO ANTIBODIES <0.2 AI Normal [facility]) SJOGREN'S ANTI SS-B <0.2 AI Normal SJOGREN'S ANTI S S-B [facility]) ID Date Data Source [id number] 05/16/2020 10:25:00 AM EST MOE ([facility]) Name Value Range Interpretation Code Description Data Lea rce(s) Supporting Document(s) Reported Physicians See Note Reported Physici ans SODDY DAISY ([facility]) Note: Reported Physicians:Ordering: Valles e, Catherine AAttending: Hong, JocelynCopy To: Hong Catherine ID Date Data Source [id number] 05/16/2020 10:25:00 AM EST MOE ([facility]) Name Value Range Interpretation Code Description Data Lea rce(s) Supporting Document(s) Lyme Disease IgG/IgM Antibodie <0.91 ISR Normal Lyme Disease IgG/IgM Antibodie SODDY DAISY ([facility]) Note: Ne gative <0.91 Equivocal 0.91 - 1.09 Positive >1.09 Lyme Disease IgM Ab Quantitati <0.80 index Normal Lyme Disease IgM Ab Quantitati SODDY DAISY ([facility]) Note: Ne gative <0.80 Equivocal 0.80 - 1.19 Positive >1.19 . IgM levels may peak at 3-6 weeks post infection, then gradually decline. ID Date Data Source [id number] 05/16/2020 10:25:00 AM EST MOE ([facility]) Name Value Range Interpretation Code Description Data Lea rce(s) Supporting Document(s) Reported Physicians See Note [facility] Note: Reported Physicians:Ordering: Valles e, Catherine AAttending: Hong, JocelynCopy To: Hong, Catherine ID Date Data Source [id number] 05/16/2020 10:25:00 AM EST MOE ([facility]) Name Value Range Interpretation Code Description Data Lea rce(s) Supporting Document(s) ANTI DS-DNA AB Negative Normal ANTI DS-DNA AB [facility] ([facility]) Note: Performed at: - [facility] [address] [id number] [place] Custodian: Gabbi Valadez MD, Phone: [phone] Performed at: - [facility] [address] [id number] [place] Custodian: Asim Bravo MD, Phone: [phone] ID Date Data Source [id number] 05/16/2020 10:25:00 AM [employer] ([facility]) Name Value Range Interpretation Code Description Data Lea rce(s) Supporting Document(s) Reported Physicians See Note Reported [facility] ([facility]) Note: Reported Physicians:Ordering: Valles e, Catherine AAttending: Hong, JocelynCopy To: Hong, Catherine ID Date Data Source [id number] 05/16/2020 10:25:00 AM EST [employer] ([facility]) Name Value Range Interpretation Code Description Data Lea rce(s) Supporting Document(s) ANTI-CHROMATIN ANTIBODIES <0.2 AI Normal ANTI-CHROM ATIN ANTIBODIES MOE ([facility]) ID Date Data Source [id number] 05/10/2020 02:37:00 PM EST [facility] Name Value Range Interpretation Code Description Data Lea rce(s) Supporting Document(s) SARS coronavirus 2 RNA [facility] This lab was ordered by [facility] and reported by [facility]. ID Date Data Source [id number] 05/03/2020 01:40:00 PM EST [facility] Name Value Range Interpretation Code Description Data Lea rce(s) Supporting Document(s) SARS coronavirus 2 RNA [facility] This lab was ordered by [facility] [facility] and reported by [facility]. ID Date Data Source [id number] 05/02/2020 11:19:00 AM EST MOE ([facility]) Name Value Range Interpretation Code Description Data Lea rce(s) Supporting Document(s) Microscopic observation [Identifier] in Unspecified specimen by Other stain . . MOE ([facility]) Chlamydia trachomatis rRNA [Presence] in Cervix by Probe and target amplification method Negative Chlamydia, Nuc. Acid Amp MOE ([facility]) . NEGHPV . MOE ([facility]) Note: The HPV DNA reflex criteria were n ot met with this specimen resulttherefore, no HPV testing was performed. Neisseria gonorrhoeae rRNA [Presence] in Cervix by Probe and target amplification method Negative Gonococcus, Nuc. Aci d Amp OME ([facility]) Note: PAPSMR Note: MOE ([facility]) Note: The Pap smear is a screening test designed to aid in the detection ofpremalignant and malignant conditions of the uterine cervix. It is not adiagnostic procedure and should not be used as the sole means of detectingcervical cancer. Both false-positive and false-negative reports do occur. Pathology report final diagnosis Narrative See Note DIAGNOSIS: MOE ([facility]) Note: NEGATIVE FOR INTRAEPITHELIAL LESIO N OR MALIGNANCY. Statement of adequacy [Interpretation] o f Cervical or vaginal smear or scraping by Cyto stain See Note Specimen adequacy: MOE ([facility]) Note: Satisfactory for evaluation. Endo cervical and/or squamous metaplasticcells (endocervical component) are present. Mail Caller who read Cyto stain of Cervical or vaginal smear or scraping See Note Performed by: MOE ([facility]) Note: Fadia Easley, Program Schedule Clerk ([facility]) Diagnosis ICD code See Note Clinician provide d ICD10: MOE ([facility]) Note: Z12.4 Cytology report of Cervical or vaginal smear or scrapi ng Cyto stain.thin prep IGLPAP Test Methodology: MOE ([facility]) Note: This liquid based ThinPrep(R) pap test was screened with theuse of an image guided system. ID Date Data Source [id number] 05/02/2020 11:19:00 AM ALPESH ROSA ([facility]) Name Value Range Interpretation Code Description Data Lea rce(s) Supporting Document(s) Age Gdln ACOG Testing 21-24 Age Gdln ACOG Testing MOE [facility]) ID Date Data Source [id number] 05/05/2020 12:06:00 PM EST [facility] Name Value Range Interpretation Code Description Data Lea rce(s) Supporting Document(s) IGP,Aptima HPV,CtNg Age Gdln L [facility] TESTS RESULT FLAG UNI TS REF RANGE LAB Clinician Provided Cytology Information Source.............Cervix;Vagina LMP / Prev Treat...GEL=[id number];None Dates / Results....NONE- THIS IS FIRST Other..............Other No. of containers..01 ThinPrep VialAge Algo ACOG Pauline... ---- FLAG LEGEND: L- Low Normal,H-High Normal,LL-Alert Low,HH-Alert High <-Panic Low,>-Panic High,A-Abnormal,AA-Critical Abnormal Performed at:01 [employer] [facility] [place] [address] [address] Osvaldo Gabriel MD, ID Date Data Source [id number] 05/05/2020 12:06:00 PM EST [facility] Name Value Range Interpretation Code Description Data Lea rce(s) Supporting Document(s) IGP, CtNg, rfx Aptima HPV ASCU [facility] TESTS RESULT FLAG UNI TS REF RANGE LAB DIAGNOSIS: 01 NEGATIVE FOR INTRAEPITHELIAL LESION OR MALIGNANCY.Specimen adequacy: 01 Satisfactory for evaluation. Endocervical and/or squamous metaplastic cells (endocervical component) are present.Clinician ICD10: 01 Z12.4Performed by: 01 Fadia Easley, Program Schedule Clerk ([facility]). 01Note: Note 01 The Pap smear is a screening test designed to aid in the detection of premalignant and malignant conditions of the uterine cervix. It is not a diagnostic procedure and should not be used as the sole means of detecting cervical cancer. Both false-positive and false-negative reports do occur. Test Methodology: Note 01 This liquid based ThinPrep(R) pap test was screened with the use of an image guided system.. 01 The HPV DNA reflex criteria were not met with this specimen result therefore, no HPV testing was performed. Chlamydia CEFERINO Negative (Negative) 02Gonococcus CEFERINO Negative (Negative) 02 FLAG LEGEND: L-Low Normal,H-High Normal,LL-Alert Low,HH-Alert High <-Panic Low,>-Panic High,A-Abnormal,AA-Critical Abnormal Performed at:[address] [address] Osvaldo Gabriel MD, [address] [address] Osvaldo Gabriel MD, ID Date Data Source [id number] 04/26/2020 03:00:00 PM EST [facility] Name Value Range Interpretation Code Description Data Lea rce(s) Supporting Document(s) SARS coronavirus 2 RNA [facility] This lab was ordered by [facility] and reported by [facility]. ID Date Data Source [id number] 04/19/2020 11:42:00 AM EST [facility] Name Value Range Interpretation Code Description Data Lea rce(s) Supporting Document(s) SARS coronavirus 2 RNA [facility] This lab was ordered by [facility] and reported by [facility]. ID Date Data Source [id number] 04/12/2020 12:22:00 PM EST [facility] Name Value Range Interpretation Code Description Data Lea rce(s) Supporting Document(s) SARS coronavirus 2 RNA [facility] This lab was ordered by [facility] and reported by [facility]. ID Date Data Source [id number] 04/05/2020 12:49:00 PM EST [facility] Name Value Range Interpretation Code Description Data Lea rce(s) Supporting Document(s) SARS coronavirus 2 RNA [facility] This lab was ordered by [facility] and reported by [facility]. ID Date Data Source [id number] 03/29/2020 09:21:00 AM [facility] [place] ([facility]) Name Value Range Interpretation Code Description Data Lea rce(s) Supporting Document(s) Reported Physicians See Note Reported [facility] [place]) Note: Reported Physicians:Ordering: Jayy as [id number], [place] MAttending: Krystal SalazarCopy To: [facility] Center[facility] To: Catherine Pitts ID Date Data Source [id number] 03/29/2020 09:21:00 AM EDT SODDY DAISY ([facility]) Name Value Range Interpretation Code Description Data Lea rce(s) Supporting Document(s) VITAMIN B12 LEVEL 808 PG/ML Normal VITAMIN B12 LEVEL [facility]) Note: VITAMIN B12 NORMAL RANGE NORMAL 247 - 911 PG/ML INDETERMINATE 211 - 246 PG/ML DEFICIENT LESS THAN 211 PG/ML Folate [Interpretation] in Blood 9.4 NG/ML Normal FOL ATE SODDY DAISY ([facility]) Note: FOLATE NORMAL RANGE NORMAL GREATER THAN 5.4 NG/ML INDETERMINATE 3.4-5.4 NG/ML DEFICIENT LESS THAN 3.4 NG/ML ID Date Data Source [id number] 03/29/2020 09:21:00 AM EDT SODDY DAISY ([facility]) Name Value Range Interpretation Code Description Data Lea rce(s) Supporting Document(s) Reported Physicians See Note Reported [facility] [place]) Note: Reported Physicians:Ordering: Jayy as [id number], [place] MAttending: CincinnatiChristianuab hospitalCopy To: [facility] To: Catherine Pitts ID Date Data Source [id number] 03/29/2020 09:21:00 AM [facility] [place] ([facility]) Name Value Range Interpretation Code Description Data Lea rce(s) Supporting Document(s) Notes [TIMP] See Note NOTES SODDY DAISY ([facility]) Note: Specimen Comment: Test(s) 851171-Q itamin B6 Specimen Comment: was developed and its performance characteristics Specimen Comment: determined by [facility]. It has not been cleared or approved Specimen Comment: by the Food and Drug Administration. VITAMIN B6,PYRIDOXAL PHOSPHATE 17.5 ug/L Normal VITAMIN B6,PYRIDOXAL PHOSPHATE SODDY DAISY ([facility]) Note: Performed at: - [facility] [id number] [place] Custodian: Asim Bravo MD, Phone: [phone] ID Date Data Source [id number] 03/29/2020 07:30:00 AM EDT [facility] Name Value Range Interpretation Code Description Data Lea rce(s) Supporting Document(s) SARS coronavirus 2 RNA [facility] This lab was ordered by [facility] and reported by [facility]. ID Date Data Source [id number] 03/23/2020 02:25:00 PM EDT [facility] Name Value Range Interpretation Code Description Data Lea rce(s) Supporting Document(s) SARS coronavirus 2 RNA [facility] This lab was ordered by [facility] and reported by [facility]. ID Date Data Source [id number] 03/15/2020 12:00:00 PM EDT [facility] Name Value Range Interpretation Code Description Data Lea rce(s) Supporting Document(s) SARS coronavirus 2 RNA [facility] This lab was ordered by [facility] and reported by [facility]. ID Date Data Source [id number] 03/08/2020 02:00:00 PM EDT [facility] Name Value Range Interpretation Code Description Data Lea rce(s) Supporting Document(s) SARS coronavirus 2 RNA [facility] This lab was ordered by [facility] and reported by [facility]. ID Date Data Source [id number] 03/01/2020 09:00:00 AM EDT [facility] Name Value Range Interpretation Code Description Data Lea rce(s) Supporting Document(s) SARS coronavirus 2 RNA [facility] This lab was ordered by [facility] and reported by [facility]. ID Date Data Source [id number] 02/23/2020 11:22:00 AM EDT [facility] Name Value Range Interpretation Code Description Data Lea rce(s) Supporting Document(s) SARS coronavirus 2 RNA [facility] This lab was ordered by [facility] and reported by [facility]. ID Date Data Source [id number] 02/09/2020 12:00:00 PM EDT [facility] Name Value Range Interpretation Code Description Data Lea rce(s) Supporting Document(s) SARS coronavirus 2 RNA [facility] This lab was ordered by [facility] and reported by [facility]. ID Date Data Source [id number] 01/26/2020 09:31:00 AM EDT [facility] Name Value Range Interpretation Code Description Data Lea rce(s) Supporting Document(s) SARS coronavirus 2 RNA [facility] This lab was ordered by [facility] and reported by [facility]. Procedure Social History Code Duration Value Status Description Data Source(s ) Smoking 02/13/2021 12:00:00 AM EDT Patient is a former smoker completed Patient is a former smoker MEDENT ([facility], ) Vital Signs ID Date Data Source UNK Name Value Range Interpretation Code Description Data Source(s) Inhaled oxygen flow rate 0 L/min 0 L/min SODDY DAISY ([facility]) Systolic blood pressure 118 mm[Hg] 118 mm[Hg] [facility] ([facility]) Diastolic blood pressure 68 mm[Hg] 68 mm[Hg] SODDY DAISY ([facility]) Heart rate 89 /min 89 /min SODDY DAISY ([facility]) Respiratory rate 22 /min 22 /min SODDY DAISY ([facility]) Body temperature 97.6 [degF] 97.6 [degF] [facility] ([facility]) Body height 66 [in_i] 66 [in_i] SODDY DAISY ([facility]) Body weight 141 [lb_av] 141 [lb_av] SODDY DAISY ([facility]) Body mass index (BMI) [Ratio] 22.8 kg/m2 22.8 k g/m2 SODDY DAISY ([facility]) Body surface area Derived from formula 1.72 m2 1.72 m2 SODDY DAISY ([facility]) Oxygen saturation in Arterial blood by Pulse oximetry 100 % 100 % SODDY DAISY ([facility]) Inhaled oxygen concentration 21 % 21 % SODDY DAISY ([facility]) Body mass index (BMI) [Ratio] 19.7 kg/m2 19.7 k g/m2 [facility] [place] body weight 135 [lb_av] 135 [lb_av] MEDEN T [facility] Body height 67 [in_i] 67 [in_i] [place] ([facility]) 5'7" Body weight 126.00 [lb_av] 126.00 [lb_av] MEDEN T ([facility], ) Respiratory rate 12 /min 12 /min [place] ( [facility]) Heart rate 90 /min 90 /min SODDY DAISY ([facility]) Systolic blood pressure 110 mm[Hg] 110 mm[Hg] [facility] ([facility]) Diastolic blood pressure 68 mm[Hg] 68 mm[Hg] SODDY DAISY ([facility]) Respiratory rate 24 /min 24 /min SODDY DAISY ([facility]) Body temperature 97.8 [degF] 97.8 [degF] [place]ud[facility] OLIVEIR[place] ([facility]) Body height 66 [in_i] 66 [in_i] MOE ([facility]) Body weight 140 [lb_av] 140 [lb_av] MOE ([facility]) Body mass index (BMI) [Ratio] 22.6 kg/m2 22.6 k g/m2 SODDY DAISY ([facility]) Body surface area Derived from formula 1.72 m2 1.72 m2 SODDY DAISY ([facility]) Oxygen saturation in Arterial blood by Pulse oximetry 99 % 99 % SODDY DAISY ([facility]) Inhaled oxygen flow rate 0 L/min 0 L/min SODDY DAISY ([facility]) Inhaled oxygen concentration 21 % 21 % SODDY DAISY ([facility]) Body temperature 97.9 [degF] 97.9 [degF] [place] ([facility], ) Body temperature 97.2 [degF] 97.2 [degF] GREENAudra AY ([facility]) Body height 66 [in_i] 66 [in_i] [facility]E [facility] Body weight 138 [lb_av] 138 [lb_av] SODDY DAISY ([facility]) Body mass index (BMI) [Ratio] 22.3 kg/m2 22.3 k g/m2 SODDY DAISY ([facility]) Body surface area Derived from formula 1.71 m2 1.71 m2 SODDY DAISY ([facility]) Oxygen saturation in Arterial blood by Pulse oximetry 97 % 97 % SODDY DAISY ([facility]) Systolic blood pressure 108 mm[Hg] 108 mm[Hg] [facility] ([facility]) Diastolic blood pressure 68 mm[Hg] 68 mm[Hg] MOE ([facility]) Heart rate 80 /min 80 /min MOE ([facility]) Respiratory rate 20 /min 20 /min SODDY DAISY ([facility]) Body temperature 97.0 [degF] 97.0 [degF] MEDENT ([facility], ) Systolic blood pressure 118 mm[Hg] 118 mm[Hg] [facility] ([facility]) Diastolic blood pressure 70 mm[Hg] 70 mm[Hg] SODDY DAISY ([facility]) Heart rate 80 /min 80 /min SODDY DAISY ([facility]) Respiratory rate 20 /min 20 /min SODDY DAISY ([facility]) Body temperature 97.3 [degF] 97.3 [degF] [facility] ([facility]) Body height 66 [in_i] 66 [in_i] SODDY DAISY ([facility]) Body weight 137 [lb_av] 137 [lb_av] SODDY DAISY ([facility]) Body mass index (BMI) [Ratio] 22.1 kg/m2 22.1 k g/m2 SODDY DAISY ([facility]) Body surface area Derived from formula 1.70 m2 1.70 m2 SODDY DAISY ([facility]) Oxygen saturation in Arterial blood by Pulse oximetry 98 % 98 % SODDY DAISY ([facility]) Heart rate 79 /min 79 /min SODDY DAISY ([facility]) Systolic blood pressure 114 mm[Hg] 114 mm[Hg] [facility] ([facility]) Body weight 137 [lb_av] 137 [lb_av] MOE ([facility]) Body mass index (BMI) [Ratio] 22.1 kg/m2 22.1 k g/m2 SODDY DAISY ([facility]) Body surface area Derived from formula 1.70 m2 1.70 m2 SODDY DAISY ([facility]) Oxygen saturation in Arterial blood by Pulse oximetry 97 % 97 % SODDY DAISY ([facility]) Inhaled oxygen flow rate 0 L/min 0 L/min SODDY DAISY ([facility]) Inhaled oxygen concentration 21 % 21 % SODDY DAISY ([facility]) Diastolic blood pressure 68 mm[Hg] 68 mm[Hg] SODDY DAISY ([facility]) Respiratory rate 24 /min 24 /min SODDY DAISY ([facility]) Body temperature 97.8 [degF] 97.8 [degF] [facility] ([facility]) Body height 66 [in_i] 66 [in_i] SODDY DAISY ([facility]) Body mass index (BMI) [Ratio] 19.7 kg/m2 19.7 k g/m2 [place] ([facility], ) Body weight 126.00 [lb_av] 126.00 [lb_av] MEDEN T ([facility], ) Respiratory rate 12 /min 12 /min [place] ( [facility], ) [place] body weight 135 [lb_av] 135 [lb_av] MEDEN T ([facility], ) Body height 67 [in_i] 67 [in_i] [place] ([facility], ) 5'7" Systolic blood pressure 108 mm[Hg] 108 mm[Hg] [facility] ([facility]) Diastolic blood pressure 66 mm[Hg] 66 mm[Hg] SODDY DAISY ([facility]) Heart rate 64 /min 64 /min SODDY DAISY ([facility]) Respiratory rate 20 /min 20 /min SODDY DAISY ([facility]) Body temperature 97 [degF] 97 [degF] SODDY DAISY ([facility]) Body height 66 [in_i] 66 [in_i] SODDY DAISY ([facility]) Body weight 137 [lb_av] 137 [lb_av] SODDY DAISY ([facility]) Body mass index (BMI) [Ratio] 22.1 kg/m2 22.1 k g/m2 SODDY DAISY ([facility]) Body surface area Derived from formula 1.70 m2 1.70 m2 SODDY DAISY ([facility]) Oxygen saturation in Arterial blood by Pulse oximetry 98 % 98 % SODDY DAISY ([facility]) Body temperature 96.6 [degF] 96.6 [degF] [place] ([facility]) Systolic blood pressure 102 mm[Hg] 102 mm[Hg] [facility] Oxygen saturation in Arterial blood by Pulse oximetry 98 % 98 % [place] ([facility]) Respiratory rate 15 /min 15 /min [place] ( [facility]) Body temperature 96.6 [degF] 96.6 [degF] [place] ([facility]) Body weight 60.329 kg 60.329 kg [place] ([facility]) Diastolic blood pressure 68 mm[Hg] 68 mm[Hg] [place] ([facility]) Heart rate 68 /min 68 /min [place] ([facility]) Body height 67 [in_i] 67 [in_i] [place] ([facility]) 5'7" Body weight 133.00 [lb_av] 133.00 [lb_av] [facility] Body mass index (BMI) [Ratio] 20.8 kg/m2 20.8 k g/m2 [place] ([facility]) [place] body weight 135 [lb_av] 135 [lb_av] MEDEN T ([facility]) Body surface area Derived from formula 1.70 m2 1.70 m2 [place] ([facility]) Oxygen saturation in Arterial blood by Pulse oximetry 98 % 98 % [place] ([facility]) Respiratory rate 15 /min 15 /min [place] ( [facility]) Body height 67 [in_i] 67 [in_i] [place] ([facility]) 5'7" Body weight 133.00 [lb_av] 133.00 [lb_av] [facility] Body mass index (BMI) [Ratio] 20.8 kg/m2 20.8 k g/m2 [place] ([facility]) [place] body weight 135 [lb_av] 135 [lb_av] MEDEN T ([facility]) Body weight 60.329 kg 60.329 kg [place] ([facility]) Body surface area Derived from formula 1.70 m2 1.70 m2 [place] ([facility]) Systolic blood pressure 108 mm[Hg] 108 mm[Hg] [facility] ([facility]) Diastolic blood pressure 68 mm[Hg] 68 mm[Hg] SODDY DAISY ([facility]) Heart rate 80 /min 80 /min SODDY DAISY ([facility]) Respiratory rate 20 /min 20 /min SODDY DAISY ([facility]) Body temperature 98.5 [degF] 98.5 [degF] [place] [facility] ([facility]) Body height 66 [in_i] 66 [in_i] SODDY DAISY ([facility]) Body weight 134.5 [lb_av] 134.5 [lb_av] [facility] ([facility]) Body mass index (BMI) [Ratio] 21.7 kg/m2 21.7 k g/m2 SODDY DAISY ([facility]) Body surface area Derived from formula 1.69 m2 1.69 m2 SODDY DAISY ([facility]) Oxygen saturation in Arterial blood by Pulse oximetry 99 % 99 % SODDY DAISY ([facility]) Respiratory rate 20 /min 20 /min SODDY DAISY ([facility]) Body temperature 98.9 [degF] 98.9 [degF] [place] AY ([facility]) Systolic blood pressure 120 mm[Hg] 120 mm[Hg] G [place] ([facility]) Diastolic blood pressure 60 mm[Hg] 60 mm[Hg] MOE ([facility]) Oxygen saturation in Arterial blood by Pulse oximetry 99 % 99 % SODDY DAISY ([facility]) Heart rate 80 /min 80 /min SODDY DAISY ([facility]) Body temperature 98.6 [degF] 98.6 [degF] [facility] ([facility]) Heart rate 68 /min 68 /min MOE ([facility]) Respiratory rate 26 /min 26 /min SODDY DAISY ([facility]) Body height 66 [in_i] 66 [in_i] MOE ([facility]) Body weight 135 [lb_av] 135 [lb_av] MOE ([facility]) Body mass index (BMI) [Ratio] 21.8 kg/m2 21.8 k g/m2 SODDY DAISY ([facility]) Body surface area Derived from formula 1.69 m2 1.69 m2 SODDY DAISY ([facility]) Oxygen saturation in Arterial blood by Pulse oximetry 98 % 98 % SODDY DAISY ([facility]) Inhaled oxygen flow rate 0 L/min 0 L/min SODDY DAISY ([facility]) Inhaled oxygen concentration 21 % 21 % SODDY DAISY ([facility]) Systolic blood pressure 120 mm[Hg] 120 mm[Hg] [facility] Diastolic blood pressure 68 mm[Hg] 68 mm[Hg] SODDY DAISY ([facility]) Heart rate 88 /min 88 /min [place] ([facility], ) Body weight 133.00 [lb_av] 133.00 [lb_av] MEDEN T ([facility], ) Systolic blood pressure 110 mm[Hg] 110 mm[Hg] M EDENT ([facility], ) Diastolic blood pressure 80 mm[Hg] 80 mm[Hg] [place] ([facility], ) Oxygen saturation in Arterial blood by Pulse oximetry 99 % 99 % [place] ([facility], ) Body temperature 97.8 [degF] 97.8 [degF] [place] ([facility], ) Body height 67 [in_i] 67 [in_i] [place] ([facility], ) 5'7" Body mass index (BMI) [Ratio] 20.8 kg/m2 20.8 k g/m2 [place] ([facility]) [place] body weight 135 [lb_av] 135 [lb_av] MEDEN T ([facility]) Body weight 60.329 kg 60.329 kg [place] ([facility]) Body surface area Derived from formula 1.70 m2 1.70 m2 [place] ([facility]) Systolic blood pressure 116 mm[Hg] 116 mm[Hg] [facility] Diastolic blood pressure 66 mm[Hg] 66 mm[Hg] SODDY DAISY ([facility]) Heart rate 72 /min 72 /min MOE ([facility]) Respiratory rate 24 /min 24 /min SODDY DAISY ([facility]) Body temperature 97.8 [degF] 97.8 [degF] [facility] ([facility]) Body height 66 [in_i] 66 [in_i] MOE ([facility]) Body weight 132 [lb_av] 132 [lb_av] SODDY DAISY ([facility]) Body mass index (BMI) [Ratio] 21.3 kg/m2 21.3 k g/m2 SODDY DAISY ([facility]) Body surface area Derived from formula 1.68 m2 1.68 m2 SODDY [place]ISY ([facility]) Oxygen saturation in Arterial blood by Pulse oximetry 98 % 98 % SODDY DAIS[place] ([facility]) Inhaled oxygen flow rate 0 L/min 0 L/min [place] ([facility]) Inhaled oxygen concentration 21 % 21 % [place] ([facility]) Respiratory rate 12 /min 12 /min [place] ( [facility]) Body height 67 [in_i] 67 [in_i] [place] ([facility]) 5'7" Body weight 126.00 [lb_av] 126.00 [lb_av] MEDEN T ([facility]) Body mass index (BMI) [Ratio] 19.7 kg/m2 19.7 k g/m2 [place] ([facility]) [place] body weight 135 [lb_av] 135 [lb_av] MEDEN T ([facility]) Respiratory rate 20 /min 20 /min MOE ([facility]) Body temperature 97.1 [degF] 97.1 [degF] GREENW AY ([facility]) Body weight 133 [lb_av] 133 [lb_av] MOE ([facility]) Systolic blood pressure 112 mm[Hg] 112 mm[Hg] [facility] ([facility]) Diastolic blood pressure 70 mm[Hg] 70 mm[Hg] MOE ([facility]) Heart rate 100 /min 100 /min MOE ([facility]) Oxygen saturation in Arterial blood by Pulse oximetry 98 % 98 % MOE ([facility]) Inhaled oxygen flow rate 0 L/min 0 L/min MOE ([facility]) Inhaled oxygen concentration 21 % 21 % MOE ([facility]) Diastolic blood pressure 70 mm[Hg] 70 mm[Hg] MOE ([facility]) Respiratory rate 20 /min 20 /min MOE ([facility]) Body temperature 96.6 [degF] 96.6 [degF] GREENW AY ([facility]) Body weight 132 [lb_av] 132 [lb_av] MOE ([facility]) Oxygen saturation in Arterial blood by Pulse oximetry 98 % 98 % SODDY DAISY ([facility]) Inhaled oxygen flow rate 0 L/min 0 L/min SODDY DAISY ([facility]) Inhaled oxygen concentration 21 % 21 % SODDY DAISY ([facility]) Systolic blood pressure 116 mm[Hg] 116 mm[Hg] [facility] ([facility]) Heart rate 66 /min 66 /min MOE ([facility]) Systolic blood pressure 120 mm[Hg] 120 mm[Hg] [facility] ([facility]) Diastolic blood pressure 68 mm[Hg] 68 mm[Hg] MOE ([facility]) Heart rate 75 /min 75 /min MOE ([facility]) Respiratory rate 22 /min 22 /min MOE ([facility]) Body temperature 97.6 [degF] 97.6 [degF] GREEN[place] AY ([facility]) Body height 66 [in_i] 66 [in_i] MOE ([facility]) Body weight 128 [lb_av] 128 [lb_av] SODDY DAISY ([facility]) Body mass index (BMI) [Ratio] 20.7 kg/m2 20.7 k g/m2 MOE ([facility]) Body surface area Derived from formula 1.65 m2 1.65 m2 SODDY DAISY ([facility]) Oxygen saturation in Arterial blood by Pulse oximetry 99 % 99 % SODDY DAISY ([facility]) Inhaled oxygen flow rate 0 L/min 0 L/min SODDY DAISY ([facility]) Inhaled oxygen concentration 21 % 21 % SODDY DAISY ([facility]) Respiratory rate 18 /min 18 /min SODDY DAISY ([facility]) Diastolic blood pressure 72 mm[Hg] 72 mm[Hg] MOE ([facility]) Heart rate 64 /min 64 /min SODDY DAISY ([facility]) Body temperature 96.9 [degF] 96.9 [degF] GREENW AY ([facility]) Body weight 130 [lb_av] 130 [lb_av] SODDY DAISY ([facility]) Oxygen saturation in Arterial blood by Pulse oximetry 95 % 95 % SODDY DAISY ([facility]) Inhaled oxygen flow rate 0 L/min 0 L/min SODDY DAISY ([facility]) Inhaled oxygen concentration 21 % 21 % SODDY DAISY ([facility]) Systolic blood pressure 110 mm[Hg] 110 mm[Hg] [facility] ([facility]) Systolic blood pressure 108 mm[Hg] 108 mm[Hg] [facility] ([facility]) Diastolic blood pressure 68 mm[Hg] 68 mm[Hg] MOE ([facility]) Heart rate 64 /min 64 /min SODDY DAISY ([facility]) Respiratory rate 18 /min 18 /min SODDY DAISY ([facility]) Body temperature 96.9 [degF] 96.9 [degF] GREENW AY ([facility]) Body weight 135 [lb_av] 135 [lb_av] MOE ([facility]) Oxygen saturation in Arterial blood by Pulse oximetry 97 % 97 % SODDY DAISY ([facility]) Inhaled oxygen flow rate 0 L/min 0 L/min SODDY DAISY ([facility]) Inhaled oxygen concentration 21 % 21 % SODDY DAISY ([facility]) Respiratory rate 12 /min 12 /min [place] ( [facility], ) Body height 67 [in_i] 67 [in_i] [place] ([facility], ) 5'7" Body weight 126.00 [lb_av] 126.00 [lb_av] MEDEN T ([facility], ) Body mass index (BMI) [Ratio] 19.7 kg/m2 19.7 k g/m2 [place] ([facility]) [place] body weight 135 [lb_av] 135 [lb_av] MEDEN T ([facility], ) Systolic blood pressure 110 mm[Hg] 110 mm[Hg] [facility] ([facility]) Diastolic blood pressure 58 mm[Hg] 58 mm[Hg] SODDY DAISY ([facility]) Heart rate 76 /min 76 /min SODDY DAISY ([facility]) Respiratory rate 24 /min 24 /min SODDY DAISY ([facility]) Body temperature 97.8 [degF] 97.8 [degF] [facility] ([facility]) Body height 66 [in_i] 66 [in_i] SODDY DAISY ([facility]) Body weight 131 [lb_av] 131 [lb_av] SODDY DAISY ([facility]) Body mass index (BMI) [Ratio] 21.1 kg/m2 21.1 k g/m2 SODDY DAISY ([facility]) Body surface area Derived from formula 1.67 m2 1.67 m2 SODDY DAISY ([facility]) Oxygen saturation in Arterial blood by Pulse oximetry 98 % 98 % SODDY DAISY ([facility]) Inhaled oxygen flow rate 0 L/min 0 L/min SODDY DAISY ([facility]) Inhaled oxygen concentration 21 % 21 % SODDY DAISY ([facility]) Body mass index (BMI) [Ratio] 20.7 kg/m2 20.7 k g/m2 MEDENT ([facility]) Systolic blood pressure 104 mm[Hg] 104 mm[Hg] M EDENT ([facility]) Diastolic blood pressure 64 mm[Hg] 64 mm[Hg] MEDENT ([facility]) Heart rate 66 /min 66 /min MED[facility] ([facility]) Body height 66 [in_i] 66 [in_i] MEDENT ([facility]) 5'6" Body weight 128.44 [lb_av] 128.44 [lb_av] MEDEN T ([facility]) Oxygen saturation in Arterial blood by Pulse oximetry 99 % 99 % SODDY DAISY ([facility]) Inhaled oxygen flow rate 0 L/min 0 L/min SODDY DAISY ([facility]) Inhaled oxygen concentration 21 % 21 % SODDY DAISY ([facility]) Respiratory rate 18 /min 18 /min SODDY DAISY ([facility]) Body temperature 96.9 [degF] 96.9 [degF] [facility] ([facility]) Body height 66 [in_i] 66 [in_i] MOE ([facility]) Body weight 132 [lb_av] 132 [lb_av] [facility] Body mass index (BMI) [Ratio] 21.3 kg/m2 21.3 k g/m2 MOE ([facility]) Body surface area Derived from formula 1.68 m2 1.68 m2 SODDY DAISY ([facility]) Diastolic blood pressure 72 mm[Hg] 72 mm[Hg] SODDY DAISY ([facility]) Heart rate 105 /min 105 /min SODDY DAISY ([facility]) Systolic blood pressure 118 mm[Hg] 118 mm[Hg] G [facility] ([facility]) Patient Treatment Plan of Care Planned Activity Planned Date Details Description Data Source (s) Cyclobenzaprine hydrochloride 10 MG Oral Tablet 03/02/2021 12:00:00 AM EDT SODDY DAISY ([facility]) Cyclobenzaprine hydrochloride 10 MG Oral Tablet 02/22/2021 12:00:00 AM EDT SODDY DAISY ([facility]) gabapentin 100 MG Oral Capsule [Neurontin] 02/22/2021 12:00:00 AM E DT MOE ([facility]) Hydroxyzine Hydrochloride 25 MG Oral Tablet 12/28/2020 12:00:00 AM EDT MOE ([facility]) gabapentin 100 MG Oral Capsule [Neurontin] 11/29/2020 12:00:00 AM E DT MOE ([facility]) Hydroxyzine Hydrochloride 25 MG Oral Tablet 10/04/2020 12:00:00 AM EDT MOE ([facility]) gabapentin 100 MG Oral Capsule [Neurontin] 09/05/2020 12:00:00 AM E DT MOE ([facility]) Hydroxyzine Hydrochloride 25 MG Oral Tablet 07/15/2020 12:00:00 AM EST SODDY DAISY ([facility]) gabapentin 100 MG Oral Capsule [Neurontin] 06/14/2020 12:00:[address] MOE ([facility]) gabapentin 100 MG Oral Capsule [Neurontin] 05/20/2020 12:00:[address] MOE ([facility]) Hydroxyzine Hydrochloride 25 MG Oral Tablet 05/02/2020 12:00:00 AM EST MOE ([facility]) Hydroxyzine Hydrochloride 25 MG Oral Tablet 04/20/2020 12:00:00 AM EST MOE ([facility]) gabapentin 100 MG Oral Capsule [Neurontin] 04/20/2020 12:00:[address] MOE ([facility]) gabapentin 100 MG Oral Capsule [Neurontin] 03/30/2020 12:00:00 AM E DT MOE ([facility]) Hydroxyzine Hydrochloride 25 MG Oral Tablet 03/02/2020 12:00:00 AM EDT MOE ([facility]) gabapentin 100 MG Oral Capsule [Neurontin] 03/02/2020 12:00:00 AM E DT MOE ([facility]) gabapentin 100 MG Oral Capsule [Neurontin] 03/02/2020 12:00:00 AM E DT MOE ([facility]) gabapentin 100 MG Oral Capsule [Neurontin] 12/24/2019 12:00:00 AM E DT MOE ([facility]) Naproxen 375 MG Delayed Release Oral Tablet [Naprosyn] 12/23/2019 12:00:00 AM EDT MOE ([facility]) Sertraline 100 MG Oral Tablet 12/23/2019 12:00:00 AM EDT MOE ([facility]) Hydroxyzine Hydrochloride 25 MG Oral Tablet 12/23/2019 12:00:00 AM ZAKIYA ROSA ([facility])
[2021-03-22] MEDS ORDERED: LIDOCAINE 2% 100MG/5ML SDV (FOR ANES.) As Ordered ONE (09:30)
[2021-03-22] MEDS ORDERED: propofoL 200 MG/20 ML VIAL As Ordered ONE (09:30)
[2021-03-22] MEDS ORDERED: dexameTHASONE 4 MG/ML 1ML VIAL (J1100 PER 1MG) As Ordered ONE (09:30)
[2021-03-22] MEDS ORDERED: ONDANSETRON 4MG/2ML VIAL As Ordered ONE ×2 (09:30→13:13)
[2021-03-22] MEDS ORDERED: fentaNYL 100 MCG/2 ML INJECTION (J3010) As Ordered ONE (09:30)
[2021-03-22] MEDS ORDERED: MIDAZOLAM INJ 2MG/2ML VIAL (J2250 PER 1MG) As Ordered ONE (09:30)
[2021-03-22] MEDS ORDERED: METOCLOPRAMIDE INJ 10MG/2ML VIAL (J2765 PER 1) As Ordered ONE (09:30)
[2021-03-22] MEDS ORDERED: dexameTHASONE 10MG/1ML VIAL PRES.FREE (J1100 PER 1MG) XX ONE (10:10)
[2021-03-22] MEDS ORDERED: ROPIvacaine 0.5% 30ML INJECTION (J2795 PER 1MG) XX ONE (10:10)
[2021-03-22] MEDS ORDERED: LIDOCAINE 1% SDV 30ML VIAL As Ordered ONE (10:11)
[2021-03-22] MEDS ORDERED: EPINEPHrine INJ 1 MG/ML 1ML AMP As Ordered ONE (10:11)
[2021-03-22] MEDS ORDERED: ROPIvacaine 0.5% 30ML INJECTION (J2795 PER 1MG) As Ordered ONE (10:49)
[2021-03-22] MEDS ORDERED: ACETAMINOPHEN 1000MG 100ML IV BTL (OFIRMEV) (J0131 PER 10MG) As Ordered ONE (11:10)
[2021-03-22] MEDS ORDERED: KETOROLAC 60MG 2ML VIAL As Ordered ONE (11:22)
--- NOTE | 2021-03-22 13:32 | ROOPDOC ---
[facility] Report Of Operation Report of Operation DATE OF PROCEDURE: 03/22/21 PREPROCEDURE DIAGNOSES: Right shoulder impingement. POSTPROCEDURE DIAGNOSES: Right shoulder impingement and anterior inferior labral tear. PROCEDURE PERFORMED: Right shoulder arthroscopy, subacromial decompression, labral repair. SURGEON: Dr. Hesham Flores MD PROTOTYPE TECHNICIAN: ANESTHESIA: General anesthesia and block Dr. Nick. ESTIMATED BLOOD LOSS: Approximately 30 mL. COMPLICATIONS: None. REMARKS: None. FINDINGS: Anterior inferior labral tear from 3-5 o'clock positions. High amount of inflammatory bursitis. SPECIMENS REMOVED: None PROCEDURE NOTE: This 25-year-old female failed conservative management for right shoulder pain. MRI was consistent with impingement syndrome. She was to go ahead with right shoulder arthroscopy subacromial decompression. I saw her in preoperative holding had another discussion of the pros cons risks and benefits of surgery she wished to go ahead. I marked the right upper extremity. Patient had block prior to procedure.. DESCRIPTION OF PROCEDURE: Patient was brought to the operating room theater. They are placed supine on the operating room table. General anesthesia was induced. All bony prominences were padded. Beanbag positioner was used placed the patient right lateral decubitus. Axillary roll was placed. SCDs on legs. Right upper extremity prepped and draped in the usual sterile fashion with chlorhexidine-based prep solution allowing over 3 minutes drying time prior to draping. 10 pounds traction with the arm in 45 degrees abduction was used. Preoperative timeout performed to confirm the site patient and surgery. Began by making a standard posterior arthroscopy portal inserting the arthroscope into the intra-articular portion of the shoulder. I made 2 anterior portals using 8 mm cannulas spinal needle inside-out localization just posterior to the biceps tendon as well as one superior to the subscapularis tendon. Subscapularis tendon appeared normal as did the inferior surface of the rotator cuff tendons. Biceps root was stable. There is little bit of fraying of the origin of the biceps gently debrided. Otherwise biceps looks normal without split tears instability or other pathology. Cartilage on the glenoid and humeral head were normal. There did appear to be a small crack in the anterior inferior labrum tear from about 3 to the 5 o'clock position. I used the elevator to elevate the labrum and then shaving instrument to create a bleeding surface of bone for healing. I then used the suture lasso instrument 45 degree curve to the right to pass the nitinol wire followed by labral tape and a single simple suture configuration. I then used a 2.9 mm push lock to secure the labrum in place, cut the sutures short. I then did the similar steps to achieve another simple suture with labral tape and a 2.9 mm push lock just superior to this at the 4 and 3 o'clock position. Labrum was stable and solid after repair. No obvious posterior labral tears. Axillary recess was normal, no loose bodies. Next the subacromial space was entered. There is high level of inflammatory bursitis. I performed a complete bursectomy through an accessory lateral portal as well as another anterior inferior lateral portal in order to perform a subacromial decompression for about 3 mm thickness at the anteroinferior leading edge of the acromion. Rotator cuff was probed no obvious superior thinning or tears. Case was terminated arthroscopy pictures taken and saved onto the system throughout the case. Portal sites closed with interrupted 3-0 Monocryl sutures. Wound was cleaned with wet and dry dressing followed by application of Adaptic 4 x 8 gauze abdominal pad dressings cloth tape and a sling for the upper ext remity. Patient transferred supine woken up from general anesthetic and transferred off the operating room table in stable condition. All sponge needle instrument counts were correct no complications estimated blood loss 30 cc. Plan for the patient avoid external rotation beyond 20 degrees avoid forward elevation beyond 90 degrees start immediate pendulum exercises as well as hand wrist and elbow exercises follow-up in the office 2 weeks time. Discharge home when they are comfortable. Change dressing postoperative day 1, 2 and is needed. Postoperative wound instructions were given. It was recommended to keep the wound clean and dry. Dressing changes as needed. It was reinforced with the patient that they should call us or be seen immediately for redness, drainage, or fever. Risk factors for harms from taking opioid medications discussed and assessed including but not limited to personal or family history of substance use disorder, anxiety or depression, , age 65 or older, COPD or other underlying respiratory conditions, and renal or hepatic insufficiency. Discussed with patient concerns and determined any harms they may experience or be currently experiencing such as nausea or constipation, feeling sedated or confused, breathing interruptions during sleep, or taking or craving more opioids than prescribed or difficulty controlling use (addiction). Discussed early warning signs of overdose including confusion, sedation, slurred speech, abnormal gait. HESHAM FLORES MD Mar 22, 2021 13:32
[2021-03-22] MEDS ORDERED: fentaNYL 100 MCG/2 ML INJECTION (J3010) IV PRN (13:35)
[2021-03-22] MEDS ORDERED: LR 1,000 ML IV SCH (13:35)
[2021-03-22] MEDS ORDERED: HYDROMORPHONE HCL 0.5 MG/ 0.5 ML SYRINGE (J1170 PER 1) IV PRN (13:35)
[2021-03-22] MEDS ORDERED: ONDANSETRON 4MG/2ML VIAL IV PRN (13:35)
[2021-03-22] MEDS ORDERED: oxyCODONE 5MG TAB PO PRN (13:35)
[2021-03-22 16:00] VITALS: BP 120/74
== END 2021-03-22 16:15 | disposition home or self-care (01) ==
LOC: M SDC 08:54
PROVIDERS: ATTEND Orthopaedic Surgery Sports Medicine
DX: M75.41 Impingement syndrome of right shoulder (principal); F41.9 Anxiety disorder, unspecified; F32.9 Major depressive disorder, single episode, unspecified; G43.909 Migraine, unspecified, not intractable, without status migrainosus; Z79.899 Other long term (current) drug therapy
CPT/HCPCS: 29806; 29826; 64415; 81025; C1713; J0131; J0171; J0690; J1100; J1885; J2250; J2405; J2765; J2795; J3010

== ENCOUNTER → 2021-12-08 | Outpatient (CLI) | payer BC ==
[~2021-12-08] MED LIST changes: -CITA10TA5 PO; +CITA10TA7 PO; -LR 1,000 ML IV ONE; -MIDAZOLAM INJ 2MG/2ML VIAL (J2250 PER 1MG) IV PRN; -ceFAZolin SOD 2 GM in IV 1 EA IV ONE; -fentaNYL 100 MCG/2 ML INJECTION (J3010) IV PRN
[2021-12-08 09:48] LABS: HEMATOCRIT 40.3 % (36.0-47.0); HEMOGLOBIN 13.2 g/dl (12.0-15.5); MEAN CORPUSCULAR HEMOGLOBIN 28.8 pg (27.0-33.0); MEAN CORPUSCULAR HGB CONC 32.8 g/dl (32.0-36.5); MEAN CORPUSCULAR VOLUME 87.8 fl (80.0-96.0); PLATELET COUNT, AUTOMATED 309 10^3/uL (150-450); RED BLOOD COUNT 4.59 10^6/uL (4.00-5.40); WHITE BLOOD COUNT 9.1 10^3/uL (4.0-10.0)
[2021-12-08 10:20] LABS: ALBUMIN 3.8 GM/DL (3.2-5.2); ALT/SGPT 14 U/L (12-78); BILIRUBIN,TOTAL 0.3 MG/DL (0.2-1.0); BLOOD UREA NITROGEN 18 MG/DL (7-18); CALCIUM LEVEL 9.1 MG/DL (8.5-10.1); CARBON DIOXIDE LEVEL 26 MEQ/L (21-32); CHLORIDE LEVEL 110 MEQ/L (98-107); CHOLESTEROL LEVEL 154 MG/DL (<200); CHOLESTEROL RISK RATIO 3.208 (<5); CREATININE FOR GFR 0.78 MG/DL (0.55-1.30); FREE T3 2.2 PG/ML (2.2-4.0); GLOMERULAR FILTRATION RATE > 60.0 (>60); GLUCOSE, FASTING 93 MG/DL (70-100); HDL CHOLESTEROL 48 MG/DL (>40); LDL CHOLESTEROL 91 MG/DL (<100); NON-HDL-C 106 MG/DL; POTASSIUM SERUM 4.4 MEQ/L (3.5-5.1); SODIUM LEVEL 141 MEQ/L (136-145); TOTAL PROTEIN 6.4 GM/DL (6.4-8.2); TRIGLYCERIDES LEVEL 74 MG/DL (<150)
[2021-12-08 11:19] LABS: TOTAL 25(OH) VITAMIN D 29.8 NG/ML (30.0-100.0)
== END ==
LOC: M LAB 09:16
PROVIDERS: ATTEND Registered Nurse
DX: Z13.21 Encounter for screening for nutritional disorder (principal); Z13.220 Encounter for screening for lipoid disorders; F41.1 Generalized anxiety disorder

== ENCOUNTER → 2022-01-23 | Outpatient (CLI) | payer BC ==
[~2022-01-23] MED LIST changes: +ISOVUE-300 61% 50ML VIAL As Ordered ONE; +LIDOCAINE 1% MDV 20ML VIAL As Ordered ONE; +PROHANCE 279.3MG/ML 5ML VIAL As Ordered ONE
== END ==
LOC: M RADPRO 06:41
PROVIDERS: ATTEND Nurse Practitioner Family
DX: M25.311 Other instability, right shoulder (principal)
CPT/HCPCS: 23350; 73223; 77002; A9576; Q9967

== ENCOUNTER → 2022-06-12 | Outpatient (CLI) | payer BC ==
[~2022-06-12] MED LIST changes: +E-Z-GAS II EFFERVESCENT PACKET (SODIUM BICARB./CITRIC ACID/SIMETHICONE) As Ordered ONE; +E-Z-HD 98% w/w 340GM SUSP BTL As Ordered ONE; +E-Z-PAQUE 96% w/w SUSP 176GM BTL As Ordered ONE; -ISOVUE-300 61% 50ML VIAL As Ordered ONE; -LIDOCAINE 1% MDV 20ML VIAL As Ordered ONE; -PROHANCE 279.3MG/ML 5ML VIAL As Ordered ONE
[2022-06-12 10:46] LABS: FREE T3 3.6 PG/ML (2.3-4.2); THYROID STIMULATING HORMONE 2.609 uIU/ML (0.55-4.78)
[2022-06-12 10:47] LABS: FREE T4 1.07 NG/DL (0.89-1.76)
== END ==
LOC: M RAD 09:15
PROVIDERS: ATTEND Family Medicine
DX: E03.9 Hypothyroidism, unspecified (principal)